=== PATIENT | male | born 1960 | race Caucasian/White ===

== ENCOUNTER → 2017-01-11 | Day surgery (SDC) | payer OTHER ==
[~2017-01-11] MED LIST: ASPIRIN81 M1 PO; COREG12.5 M1 PO; LEVOTHYROXINE0.05 MG PO; LISINOPRIL10 M1 PO; PRILOSEC20 M1 PO; XANAX1 MG PO
[2017-01-11 12:55] LABS: PROTHROMBIN TIME 10.7 SECONDS (9.0-12.4)
== END | disposition home or self-care (01) ==
LOC: LAB 00:31
PROVIDERS: Chiropractor Orthopedic
DX: M25.512 Pain in left shoulder (principal); I10 Essential (primary) hypertension; Z98.890 Other specified postprocedural states

== ENCOUNTER → 2017-04-04 | Outpatient (CLI) | payer OTHER | END | disposition home or self-care (01) | LOC: RESCLI 02:16 | DX: I10 Essential (primary) hypertension (principal); E55.9 Vitamin D deficiency, unspecified; E03.9 Hypothyroidism, unspecified; F41.9 Anxiety disorder, unspecified; K21.9 Gastro-esophageal reflux disease without esophagitis ==

== ENCOUNTER → 2017-08-08 | Outpatient (CLI) | payer OTHER | END | disposition home or self-care (01) | LOC: RESCLI 01:46 | DX: F10.20 Alcohol dependence, uncomplicated (principal); K21.9 Gastro-esophageal reflux disease without esophagitis; F41.1 Generalized anxiety disorder; E03.9 Hypothyroidism, unspecified; E55.9 Vitamin D deficiency, unspecified; I10 Essential (primary) hypertension; F32.9 Major depressive disorder, single episode, unspecified ==

== ENCOUNTER 2017-12-20 17:47 | Inpatient (IN) | payer OTHER ==
[~2017-12-20] VITALS: Ht 167.6 cm; Wt 80.5 kg
--- NOTE | ~2017-12-20 | CON ---
[place], [place] REPORT OF CONSULTATION NAME: [facility]SE MANUEL [facility]IRD [id number] UNIT #: [id number] ROOM: 415 DOCTOR: LEANDRO HERNÁNDEZ ED.D (TOMAS) BIRTHDATE: [birth year] DOS: 12/26/2017 HISTORY OF PRESENT ILLNESS: The patient is a 57-year-old male referred by the hospitalist for an evaluation secondary to thoughts he may be suicidal. At the present time, this patient is in the intensive care unit at [facility]. He is and has three children along with several grandchildren. He last worked with the [employer], working on the [employer] lines. He follows up at the [facility] in [place], [place]. His medical history is pertinent for alcohol dependence, generalized anxiety disorder, hypertension, thyroid disease and GERD. His medications include Prozac, Restoril, Vistaril, Prinivil, omeprazole, vitamin D3, and Synthroid. He states he drinks 24-30 beers each day. He also smokes 1-2 packs of cigarettes each day. He does not use any recreational drugs, whatsoever. This patient was awake, alert and oriented in all three spheres. He denies any suicidal ideation or plan. His insight, judgment and concentration are fair. He states that once he is discharged from the hospital. He is going to rehabilitation for his alcoholism. He states he is very willing to enter rehabilitation and wants to remain sober. DIAGNOSES: 1. Alcohol dependence. 2. Generalized anxiety disorder. RECOMMENDATIONS: The patient is not suicidal and may be discharged to alcohol rehabilitation once he is medically stable. Thank you very much for this consult. LEANDRO HERNÁNDEZ ED.D CM:CONSTR:REPORT OF CONSULTATION 1513 12/26/17 2213 interface
[2017-12-20 17:55] VITALS: BP 150/90
[2017-12-20 18:24] LABS: BASO # 0.1 10*3/uL (0.0-0.1); BASO % 1.7 % (0.0-1.0); EOS % 0.3 % (1.0-4.0); HEMOGLOBIN 13.6 g/dl (14.0-18.0); LYMPH % 26.6 % (27.0-41.0); MEAN CELL VOLUME 100.5 fl (80.0-94.0); MEAN CORPUSCULAR HGB 35.1 pg (27.0-31.0); MEAN CORPUSCULAR HGB CONC 34.9 g/dl (33.0-37.0); MONO # 0.7 10*3/uL (0.1-1.0); MONO % 19.9 % (3.0-9.0); NEUT # 1.8 10*3/uL (2.3-7.9); NEUT % 51.5 % (47.0-73.0); PLATELET COUNT AUTOMATED 127 10*3/uL (130-400); RED BLOOD COUNT 3.88 10*6/uL (4.50-5.90); RED CELL DISTRI WIDTH 12.9 % (0-14.5); WHITE BLOOD COUNT 3.6 10*3/uL (4.8-10.8)
[2017-12-20 18:34] LABS: ACT PARTIAL THROMBO TIME 25.2 SECONDS (20.8-31.5); INTERNATIONAL NORM RATIO 1.1 (2.0-3.5)
[2017-12-20 18:41] LABS: ALBUMIN 3.1 gm/dl (3.1-4.5); ALKALINE PHOSPHATASE 100 U/L (45-117); BUN 3 mg/dl (7-24); CHLORIDE 100 mmol/L (98-107); POTASSIUM 3.3 mmol/L (3.5-5.1); SGOT/AST 153 IU/L (3-35); SGPT/ALT 57 U/L (12-78); SODIUM 133 mmol/L (136-145); TOTAL PROTEIN 7.9 gm/dL (6.4-8.2)
[2017-12-20 18:47] VITALS: BP 136/77
[2017-12-20 20:00] VITALS: BP 118/85
[2017-12-20 20:19] LABS: BILIRUBIN NEGATIVE (NEGATIVE); BLOOD NEGATIVE (NEGATIVE); CLARITY CLEAR (CLEAR); COLOR YELLOW (YELLOW); GLUCOSE NEGATIVE (NEGATIVE); KETONE NEGATIVE (NEGATIVE); LEUKO ESTERASE NEGATIVE (NEGATIVE); NITRITE NEGATIVE (NEGATIVE); PH 5.5 (5.0-9.0); SPECIFIC GRAVITY <= 1.005 (1.005-1.030); UROBILINOGEN 0.2 E.U./dl (0.2-1.0)
[2017-12-20 20:43] LABS: BACTERIA TRACE; RBC 0-2 rbc/hpf (0-2); URINE AMPHETAMINES < 1000 (1000ng/ml); URINE BARBITURATES < 200 (200ng/ml); URINE BENZODIAZEPINES < 200 (200ng/ml); URINE CANNABINOIDS (THC) < 50 (50ng/ml); URINE COCAINE < 300 (300ng/ml); URINE METHADONE < 300 (300ng/ml); URINE OPIATES < 300 (300ng/ml); WBC 0-2 wbc/hpf (0-5)
[2017-12-20 20:48] LABS: URINE PHENCYCLIDINE < 25 (25ng/ml)
[2017-12-21] VITALS: BP 134/79
[2017-12-21 04:00] VITALS: BP 124/54
[2017-12-21 06:16] LABS: BASO # 0.1 10*3/uL (0.0-0.1); BASO % 1.9 % (0.0-1.0); EOS % 0.9 % (1.0-4.0); HEMOGLOBIN 12.9 g/dl (14.0-18.0); LYMPH % 31.8 % (27.0-41.0); MEAN CELL VOLUME 102.2 fl (80.0-94.0); MEAN CORPUSCULAR HGB 35.6 pg (27.0-31.0); MEAN CORPUSCULAR HGB CONC 34.9 g/dl (33.0-37.0); MEAN PLATELET VOLUME 9.5 fl (9.6-12.3); MONO # 0.6 10*3/uL (0.1-1.0); MONO % 17.1 % (3.0-9.0); NEUT # 1.5 10*3/uL (2.3-7.9); PLATELET COUNT AUTOMATED 124 10*3/uL (130-400); RED BLOOD COUNT 3.62 10*6/uL (4.50-5.90); WHITE BLOOD COUNT 3.2 10*3/uL (4.8-10.8)
[2017-12-21 06:28] LABS: ALBUMIN 2.9 gm/dl (3.1-4.5); ALKALINE PHOSPHATASE 89 U/L (45-117); BUN 3 mg/dl (7-24); CHLORIDE 103 mmol/L (98-107); CREATININE 0.46 mg/dL (0.70-1.30); POTASSIUM 3.5 mmol/L (3.5-5.1); SGOT/AST 131 IU/L (3-35); SGPT/ALT 53 U/L (12-78); SODIUM 136 mmol/L (136-145); TOTAL PROTEIN 7.3 gm/dL (6.4-8.2)
[2017-12-21 08:00] VITALS: BP 141/70
[2017-12-21] MEDS ORDERED: VISTARIL50 MG PO (11:11)
[2017-12-21] MEDS ORDERED: RESTORIL15 MG PO (11:11)
[2017-12-21] MEDS ORDERED: PROZAC40 M1 PO (11:11)
[2017-12-21] MEDS ORDERED: VITAMIN D-32000 UNIT PO (11:12)
[2017-12-21] MEDS ORDERED: PRINIVIL10 MG PO (11:12)
[2017-12-21] MEDS ORDERED: ASPIRIN CHEWABL81 MG PO (11:13)
[2017-12-21] MEDS ORDERED: PRILOSEC20 M1 PO (11:13)
[2017-12-21] MEDS ORDERED: Synthroid,Levo50 MCG PO (11:13)
[2017-12-21 16:00] VITALS: BP 158/98
[2017-12-21 20:00] VITALS: BP 151/105
[2017-12-22] VITALS: BP 152/96
[2017-12-22 08:00] VITALS: BP 163/93
[2017-12-22 12:00] VITALS: BP 130/77
[2017-12-22 14:57] VITALS: BP 120/86
[2017-12-22 16:00] VITALS: BP 134/88
[2017-12-22 20:40] VITALS: BP 160/98
[2017-12-23] VITALS: BP 158/113
[2017-12-23 02:45] VITALS: BP 196/89
[2017-12-23 04:00] VITALS: BP 161/106
[2017-12-23 07:07] LABS: ALBUMIN 3.2 gm/dl (3.1-4.5); ALKALINE PHOSPHATASE 91 U/L (45-117); BUN 4 mg/dl (7-24); CHLORIDE 105 mmol/L (98-107); CREATININE 0.53 mg/dL (0.70-1.30); PHOSPHOROUS 2.4 mg/dL (2.5-4.9); POTASSIUM 3.2 mmol/L (3.5-5.1); SGOT/AST 85 IU/L (3-35); SGPT/ALT 46 U/L (12-78); SODIUM 139 mmol/L (136-145); TOTAL PROTEIN 7.9 gm/dL (6.4-8.2)
[2017-12-23 08:00] VITALS: BP 146/97
[2017-12-23 08:41] LABS: BASO % 0.5 % (0.0-1.0); EOS % 0.4 % (1.0-4.0); HEMATOCRIT 38.2 % (42.0-52.0); HEMOGLOBIN 13.3 g/dl (14.0-18.0); LYMPH # 0.8 10*3/uL (1.3-4.4); LYMPH % 15.1 % (27.0-41.0); MEAN CELL VOLUME 101.1 fl (80.0-94.0); MEAN CORPUSCULAR HGB 35.2 pg (27.0-31.0); MEAN CORPUSCULAR HGB CONC 34.8 g/dl (33.0-37.0); MEAN PLATELET VOLUME 10.2 fl (9.6-12.3); MONO # 0.7 10*3/uL (0.1-1.0); MONO % 12.2 % (3.0-9.0); NEUT # 3.9 10*3/uL (2.3-7.9); NEUT % 71.4 % (47.0-73.0); PLATELET COUNT AUTOMATED 130 10*3/uL (130-400); RED BLOOD COUNT 3.78 10*6/uL (4.50-5.90); RED CELL DISTRI WIDTH 12.6 % (0-14.5); WHITE BLOOD COUNT 5.5 10*3/uL (4.8-10.8)
[2017-12-23 16:00] VITALS: BP 128/93
[2017-12-23 20:00] VITALS: BP 129/79
[2017-12-24] VITALS: BP 139/87
[2017-12-24 04:00] VITALS: BP 129/77
[2017-12-24 08:00] VITALS: BP 128/93
[2017-12-24 09:16] LABS: ALBUMIN 2.8 gm/dl (3.1-4.5); ALKALINE PHOSPHATASE 69 U/L (45-117); BUN 7 mg/dl (7-24); CHLORIDE 101 mmol/L (98-107); CREATININE 0.49 mg/dL (0.70-1.30); SGOT/AST 88 IU/L (3-35); SGPT/ALT 47 U/L (12-78); SODIUM 137 mmol/L (136-145)
[2017-12-24 12:00] VITALS: BP 118/82
[2017-12-24 16:00] VITALS: BP 127/84
[2017-12-24 20:00] VITALS: BP 120/74
[2017-12-25] VITALS: BP 118/87
[2017-12-25 08:00] VITALS: BP 142/82
[2017-12-25 12:00] VITALS: BP 144/76
[2017-12-25 16:00] VITALS: BP 123/73
[2017-12-25 20:00] VITALS: BP 116/81
[2017-12-26] VITALS: BP 138/75
[2017-12-26 04:00] VITALS: BP 130/74
[2017-12-26 06:03] LABS: BUN 6 mg/dl (7-24); CHLORIDE 102 mmol/L (98-107); POTASSIUM 3.1 mmol/L (3.5-5.1); SODIUM 136 mmol/L (136-145)
[2017-12-26 08:00] VITALS: BP 146/86
[2017-12-26 12:00] VITALS: BP 148/80
[2017-12-26 16:00] VITALS: BP 134/84
[2017-12-26 20:00] VITALS: BP 144/86
[2017-12-27] VITALS: BP 143/76
[2017-12-27 06:40] LABS: BUN 6 mg/dl (7-24); CHLORIDE 101 mmol/L (98-107); CREATININE 0.45 mg/dL (0.70-1.30); POTASSIUM 3.2 mmol/L (3.5-5.1); SODIUM 136 mmol/L (136-145)
[2017-12-27 06:46] LABS: BASO # 0.1 10*3/uL (0.0-0.1); EOS # 0.2 10*3/uL (0.0-0.4); EOS % 3.7 % (1.0-4.0); HEMATOCRIT 39.2 % (42.0-52.0); HEMOGLOBIN 13.4 g/dl (14.0-18.0); LYMPH # 1.3 10*3/uL (1.3-4.4); LYMPH % 27.2 % (27.0-41.0); MEAN CELL VOLUME 102.6 fl (80.0-94.0); MEAN CORPUSCULAR HGB 35.1 pg (27.0-31.0); MEAN CORPUSCULAR HGB CONC 34.2 g/dl (33.0-37.0); MEAN PLATELET VOLUME 10.3 fl (9.6-12.3); MONO # 0.9 10*3/uL (0.1-1.0); MONO % 18.5 % (3.0-9.0); NEUT # 2.4 10*3/uL (2.3-7.9); NEUT % 48.8 % (47.0-73.0); PLATELET COUNT AUTOMATED 173 10*3/uL (130-400); RED BLOOD COUNT 3.82 10*6/uL (4.50-5.90); WHITE BLOOD COUNT 4.9 10*3/uL (4.8-10.8)
[2017-12-27 08:00] VITALS: BP 138/80
[2017-12-27 12:00] VITALS: BP 118/78
[2017-12-27 16:00] VITALS: BP 116/78
[2017-12-27 20:00] VITALS: BP 139/81
[2017-12-28] VITALS: BP 137/95
[2017-12-28 07:47] LABS: BUN 5 mg/dl (7-24); CHLORIDE 100 mmol/L (98-107); POTASSIUM 3.6 mmol/L (3.5-5.1); SODIUM 134 mmol/L (136-145)
[2017-12-28 08:00] VITALS: BP 130/68
[2017-12-28 08:21] LABS: CREATININE 0.52 mg/dL (0.70-1.30)
== END 2017-12-28 12:00 | disposition home or self-care (01) | DRG 189 ==
LOC: ED 17:47 → EDHOLD 18:12 → 4E 18:12 → ICCU 18:12 → 4E 18:22 → ICCU 12-22 20:20 → 4E 12-26 15:41
PROVIDERS: Emergency Medicine; Internal Medicine; Student in an Organized Health Care Education/Training Program
DX: J96.01 Acute respiratory failure with hypoxia (principal); D61.818 Other pancytopenia; R65.10 Systemic inflammatory response syndrome (SIRS) of non-infectious origin without acute organ dysfunction; D69.6 Thrombocytopenia, unspecified; E44.0 Moderate protein-calorie malnutrition; F10.29 Alcohol dependence with unspecified alcohol-induced disorder; E87.1 Hypo-osmolality and hyponatremia; F10.239 Alcohol dependence with withdrawal, unspecified; E03.9 Hypothyroidism, unspecified; D72.819 Decreased white blood cell count, unspecified; E87.6 Hypokalemia; E66.3 Overweight; F17.200 Nicotine dependence, unspecified, uncomplicated; K21.9 Gastro-esophageal reflux disease without esophagitis; F41.1 Generalized anxiety disorder; R73.9 Hyperglycemia, unspecified; I10 Essential (primary) hypertension; R00.0 Tachycardia, unspecified; D53.9 Nutritional anemia, unspecified; Z71.6 Tobacco abuse counseling; Z79.899 Other long term (current) drug therapy; Z79.82 Long term (current) use of aspirin; Z68.28 Body mass index [BMI] 28.0-28.9, adult

== ENCOUNTER 2018-01-10 18:13 | Inpatient (IN) | payer OTHER ==
[~2018-01-10] VITALS: Ht 167.6 cm; Wt 76.3 kg
[2018-01-10] VITALS (8 sets, daily range): BP systolic 129–157; BP diastolic 80–107
--- NOTE | ~2018-01-10 | CON ---
[place], [place] REPORT OF CONSULTATION NAME: JOSE MANUEL BIRD [facility] #: [id number] UNIT #: [id number] ROOM: [facility] DOCTOR: EULALIA GUERRERO MD,EDDI BIRTHDATE: [birth year] DOS: 01/13/2018 PULMONARY CRITICAL CARE, EVALUATION, AND MANAGEMENT CONSULTATION REQUESTED BY: Hospitalist services. REASON FOR CONSULTATION: For recurrent acute respiratory failure management. HISTORY OF PRESENT ILLNESS: A 57-year-old white male patient who has been noted with history of alcohol withdrawal has been admitted under the hospitalist services on the date of 01/10/2018. The patient has been brought to the hospital, was hospitalized for the assessment and management of the severe alcohol withdrawal under [facility]. The patient has been treated with protocol for detoxification of the alcohol. The patient was noted with excessive agitation. The patient with severe visual hallucination and agitation almost falling out to the back. He has been receiving Ativan and other medical management. The patient has been intubated and started on mechanical ventilation to secure the airway, change in mental status for potential aspiration, and further medical management of the patient could be given. Further excessive doses of sedation as needed to overcome the severe delirium tremens and the alcohol withdrawal. Currently, the patient has been intubated successfully by the Anesthesia Department without any difficulty. The patient has been sedated and noted comfortable, not noted with agitation. The patient did fell at home with pain reported in the left chest noted with acute rib fracture on this admission without any evidence of pneumothorax. REVIEW OF SYSTEMS: The review of systems could not be performed as the patient is intubated and noted on mechanical ventilation. PAST MEDICAL HISTORY: The history, which has been noted by other physician is also reviewed and is as follows: 1. History of chronic alcohol use, drinking 20-30 beers a day for several years. 2. Generalized anxiety disorder. 2. Gastroesophageal reflux. 3. Essential hypertension. 4. Hypothyroidism. 5. History of tobacco use. 6. Vitamin D deficiency. 7. History of hypothyroidism. PAST SURGICAL HISTORY: Noted with surgical manipulation of the ankle on the right side. SOCIAL HISTORY: The patient was living at home, noted use of marijuana, cocaine as well as chronic alcohol administration, and smoking 2 packs of cigarettes per day. FAMILY HISTORY: Father history was unknown. Mother is a 61-year-old diseased [place], [place] REPORT OF CONSULTATION NAME: JOSE MANUEL BIRD UNIT #: [id number] ROOM: [facility] DOCTOR: EULALIA GUERRERO MD,EDDI BIRTHDATE: [birth year] from complication related to heart disease. HOME MEDICATIONS: Reported use of aspirin, vitamin D, Prozac, hydroxyzine, levothyroxine, lisinopril, omeprazole, and Restoril. DRUG ALLERGY HISTORY: Noted with no known drug allergies. PHYSICAL EXAMINATION: GENERAL: A 57-year-old white male who has been currently intubated and sedated with Diprivan and Versed combination effectively. Height noted as 5 feet 6 inches, weight 168 pounds, and BMI 27. VITAL SIGNS: The vital signs of the patient shows a normal temperature, respiratory rate 16-22, heart rate of 125, sinus tachycardia, early post-intubation and sedation 76; and blood pressure 98/73-130/94. Intake is 2800 mL, output 4300, negative fluid balance of 1500 in the last 24 hours. The pulse oxygen saturation of the patient on 100% oxygen supplementation post-intubation is 100% at the bedside. The patient notices control volume, control mechanical ventilation, tidal volume 550, and rate of 12 with a PEEP of 5.0. HEENT: Atraumatic. Eyes nonicterus. NECK: Supple. Orogastric tube is in place. CARDIOVASCULAR: S1, S2 is audible. LUNGS: The patient was noted with moderate decreased breath sounds without any wheezing or crackles at this time. ABDOMEN: Soft, flat, and nontender. Bowel sounds present. EXTREMITIES: Without any acute edema. SKIN: No lesions or rashes. MUSCULOSKELETAL: No deformities. CENTRAL NERVOUS SYSTEM: Could not be performed. LABORATORY DATA: CBC on admission essentially noted as normal CBC except MCV elevated at 98.3. PT and PTT on 01/10/2018 normal on admission. CMP on 01/10/2018 normal on admission except sodium 133, mildly decreased. CMP of the patient on 01/11/2018, normal BUN and creatinine. Sodium 135 and potassium 3.2. CBC: Hemoglobin 13.3, otherwise CBC normal. Ethyl alcohol level was noted as 134 initially, later 131 on 01/11/2018 on admission. Urine drug screen that was done on 01/11/2018 noted positive for opiates as well as benzodiazepines. The BMP of the patient that was done on 01/12/2018 noted as normal BUN and creatinine. CBC yesterday, WBC count 4.1, hemoglobin 13.4, hematocrit 39.0, and platelet count was normal. Arterial blood gas post-intubation, mechanical ventilation, and 50% oxygen, pH of 7.39, pCO2 of 36.9, pO2 of 10 as the oxygen decreased from 100% to 50%. RADIOLOGY DATA: The review of the radiology data, the chest x-ray that was done with a repeat on 01/10/2018 in the Emergency Room, was noted with left posterolateral fracture of the 2nd and 3rd rib as well as a left 11th rib is a possibility. CT scan of chest was done on 01/10/2018 was noted with a limited study ____ because of the patient movement. Lungs were noted clear of any infiltrates. There were no signs of pneumothorax. No acute displaced rib fracture for the patient was reported in the CT scan of the chest. The chest [place], [place] REPORT OF CONSULTATION NAME: JOSE MANUEL BIRD UNIT #: [id number] ROOM: [facility] DOCTOR: EULALIA GUERRERO MD,[facility] BIRTHDATE: [birth year] x-ray on 01/13/2018 shows endotracheal tube in appropriate place. Lungs clear. Mild cardiomegaly. NG tube in the stomach. IMPRESSION: 1. The patient who has been currently admitted to the hospital noted with severe acute delirium tremens, alcohol withdrawal, combination of longstanding alcohol use. 2. Change in mental status related to alcohol use with delirium tremens and current use of sedation combination. 3. History of chronic tobacco use without evidence of acute exacerbation of chronic obstructive pulmonary disease at present, which was suspected as seen. 4. Mild electrolyte imbalance related to the alcohol use and other etiology. PLAN OF MANAGEMENT: The patient will be continued on mechanical ventilation. Oxygen supplementation will be decreased to 30% of oxygen. Further change in mechanical ventilation will be made based on progression of the illness. Daily arterial blood gas and repeat arterial blood gases for assessment of any hypoxia or other abnormalities. The patient was ordered the feeding. Ventilator bundle management was also initiated. Sedation in the form of the Diprivan and a Versed will be given, more Versed should be used than Diprivan for the next couple of days prior to assess the resolution of the alcohol withdrawal, delirium tremens, and start weaning off, liberation of mechanical ventilation, assessment. Other supportive therapy and plan of management as previously ordered will be continued. Usual care, other supportive therapy, plan of management, and treatments. Total time in pulmonary critical care, evaluation, and management of the patient is 33 minutes. EDDI ESTEBAN MD CM:CONSTR:REPORT OF CONSULTATION 2130 01/14/18 0431 interface
--- NOTE | ~2018-01-10 | PR ---
[place], [place] PROGRESS NOTE NAME: [facility]IRD [facility] [id number] UNIT #: [id number] ROOM: [facility] DOCTOR: EULALIA GUERRERO MD,EDDI BIRTHDATE: [birth year] DOS: 01/16/2018 PULMONARY CRITICAL EVALUATION AND MANAGEMENT SUBJECTIVE: The patient remains in Intensive Care Unit. Continue intravenous drip of Ativan and intravenous Diprivan combination. The secretion production has been noted intermittently, thick and now been completely resolved. He had not been reported any finding of hemoptysis. The patient has not been noted any acute hemodynamic instability requiring use of any vasopressor therapy. Feeding was continued, well tolerated from the orogastric tube use. The patient's mental status is noted as deep sedation at this time. OBJECTIVE: VITAL SIGNS: Which has been recorded showed the temperature noted to be normal. Respiratory 15-14, heart rate 74-85, blood pressure 100/68-103/72. Pulse oxygen saturation on 30% oxygen 98% saturation recorded. HEENT: Examination shows head was atraumatic. Eyes: Nonicterus. NECK: Supple. CARDIOVASCULAR: The patient orally intubated. Orogastric tube is in place. S1, S2 audible. LUNGS: Noted [id number], decreased breath sounds, no wheeze or crackles today. ABDOMEN: Soft, nontender, bowel sounds present. EXTREMITIES: Without acute edema with no skin or lesions or rashes. MUSCULOSKELETAL SYMPTOMS: Without any deformities. CENTRAL NERVOUS SYSTEMS: Sedation at this time, further examination could not be performed. LABORATORY DATA: CBC today, WBC count 11.7, hemoglobin 12.2, hematocrit 36.1, platelet count 132,000. CMP of the patient, BUN and creatinine was normal, sodium 135, potassium 3.1. CT scan of maxillary facial sinusitis was also done shows moderate amount of complex fluid in the nasopharynx and oropharynx. Irregular thickening of the soft palate was also reported, right maxillary sinusitis infectious or inflammatory process would be considered. The x-ray of the facial bones was done shows evidence of right maxillary sinusitis. Endotracheal aspirate was noted normal toshia, preliminary final culture results were pending from yesterday. Blood culture from the of this month, so far showing no bacterial growths. PT/PTT yesterday and platelet function testing was normal. Chest x-ray, of course advancement of the endotracheal tube noted proper positioning of the endotracheal tube about 4 cm above the salma level. IMPRESSION: 1. The patient with severe acute bronchitis. The patient with right maxillary sinusitis. 2. Acute respiratory failure with delirium tremens and alcohol withdrawal combination. 3. Hyperkalemia. 4. Protein calorie malnutrition as well. [place], [place] PROGRESS NOTE NAME: JOSE MANUEL BIRD UNIT #: [id number] ROOM: [facility] DOCTOR: EDDI ALEXANDER MD BIRTHDATE: [birth year] 5. History of chronic alcohol dependence. 6. Rule out electrolyte imbalance, multifactorial. PLAN OF MANAGEMENT: 1. Proceed with the fiberoptic bronchoscopy as planned today. Continue current antibiotic medical management of acute sinusitis as well as for the acute tracheobronchitis, rule out any pneumonia. 2. Past history of nicotine abuse as well. 3. Mild anemia. 4. Hyperkalemia. PLAN OF TREATMENT: The potassium supplementation will be continued. Continue nutrition support. Continue bronchodilators. No change in antibiotic at this time will be necessary. Follow up the culture results. Any modification in treatment if necessary will be done after the bronchoscopy. Decrease and discontinue the Ativan at the present time. Use a dose of Diprivan for the patient to assess his mental status. Total time of pulmonary critical care evaluation and management excluding any billable procedure was 32 minutes. EDDI ESTEBAN MD CM:PNTRANS [id number] EDDI GUERRERO MD 01/16/18 1602 interface
--- NOTE | ~2018-01-10 | PR ---
[place], [place] PROGRESS NOTE NAME: JOSE MANUEL BIRD [facility] #: [id number] UNIT #: [id number] ROOM: [facility] DOCTOR: EULALIA GUERRERO MD,EDDI BIRTHDATE: [birth year] DOS: 01/15/2018 PULMONARY CRITICAL CARE EVALUATION AND MANAGEMENT SUBJECTIVE: The patient remains on mechanical ventilator at the present time, has been noted with a temperature elevation as well as a significant increase of purulent secretion noted from the endobronchial tree, suctioning done for the patient frequently by the nursing staff. He has not been noted with hemodynamic stability. Sedation was continued with the use of intravenous Diprivan as well as with the use of the Ativan. The patient has not been reported with any other acute changes. The feeding of the patient, which has been controlled is well tolerated. He was noted with poor dental and oral hygiene and also noted with some teeth issues. The patient has not been noted with any withdrawal because of current adequate sedation from the alcohol or further delirium tremens. OBJECTIVE: VITAL SIGNS: Rectal temperature 101.6 degree Fahrenheit, oral temperature 100.4 degree Fahrenheit, respiratory rate of 17-22, heart rate 104-87, blood pressure of 107/73-92/68. Intake for the patient is ____ 850 mL. Pulse oxygen saturation on 30% oxygen is 97% saturation. HEENT: Examination shows head was atraumatic. Eyes nonicterus. NECK: Supple. CARDIOVASCULAR: S1, S2 is audible. LUNGS: The patient noted with moderate decreased breath sounds in the lungs bilaterally. ABDOMEN: Soft and obese. EXTREMITIES: The patient was noted without any acute edema. MUSCULOSKELETAL: Without any acute deformities. SKIN: Without any lesions or rashes. CENTRAL NERVOUS SYSTEM: Currently, the patient is sedated. LABORATORY DATA: Endotracheal aspirate culture of the patient from 01/13/2018 noted with normal toshia. Arterial blood gas this morning, pH of 7.43, pCO2 34, pO2 97. Urine culture, no bacterial growth from 01/13/2018. CMP of this morning for the patient, glucose 122, BUN normal, creatinine was normal, sodium 132, chloride of 97, albumin 2.9. CBC of the patient from 01/15/2018, WBC count 11.7. hemoglobin 13.3, hematocrit 39.3, platelet count was noted as 147,000. IMAGING STUDIES: Chest x-ray of the patient that was done this morning, one-view, high-riding endotracheal tube was noted. The NG tube was noted in the stomach. There was no gross pulmonary infiltration. IMPRESSION: 1. Purulent tracheobronchitis of the patient noted at the present time. 2. High-riding endotracheal tube. 3. The patient with severe delirium tremens with alcohol withdrawal and history of chronic alcohol dependence. 4. History of tobacco use. 5. Rule out dental abscess of the patient and other abnormalities. 6. Mild anemia was also noted with elevation of MCV secondary to alcohol use. [place], [place] PROGRESS NOTE NAME: JOSE MANUEL BIRD UNIT #: [id number] ROOM: [facility] DOCTOR: EULALIA GUERRERO MD,DEDI BIRTHDATE: [birth year] PLAN OF MANAGEMENT: Bronchoscopy planned to be done in the morning. Ordered the x-ray of the facial bones of the patient to exclude any dental problem and also obtain a CT scan of the facial area as well. Continuation of bronchodilators. No changes in the overall medical management except yost-culturing for this patient with blood. The patient has been started on Unasyn 3 g q. 6 hours. Doxycycline 100 mg IV b.i.d. was ordered as well. Further changes and adjustment and antibiotic de-escalation will be done based on culture results. Continue nutrition support. Continue ventilator bundle management, DVT prophylaxis, other medical management and care. Usual care, other supportive therapy, plan of management and treatments. Total time in pulmonary critical care evaluation and management today was 35 minutes. EDDI ESTEBAN MD CM:PNTRANS [id number] EDDI GUERRERO MD 01/16/18 0051 interface
--- NOTE | ~2018-01-10 | PR ---
[place], [place] PROGRESS NOTE NAME: JOSE MANUEL BIRD [facility] #: [id number] UNIT #: [id number] ROOM: 419 DOCTOR: EULALIA GUERRERO MD,EDDI BIRTHDATE: [birth year] DOS: 01/18/2018 SUBJECTIVE: She has been currently liberated from mechanical ventilator. The patient started CPAP trial yesterday that was continued for a couple of hours later, the patient did liberate himself from the mechanical ventilation. He has been noted to be awake and alert. The patient was given Haldol p.r.n., but the lower dose of 2.5 mg as needed for agitation. Low-grade fever was still noted. He had not been noted symptoms of chest pain. He has been noted with coughing that has been noted moderate. There were symptoms, nausea, vomiting. He was started ____ initially and then advance the diet without difficulty swallowing. He denies symptoms of nausea, vomiting, diarrhea, abdominal pain, or edema of the lower extremities. Remaining systems were reviewed. They were noted all negative. OBJECTIVE: VITAL SIGNS: Highest temperature noted 100.2 degrees Fahrenheit to normal temperature, respiratory 13-19, heart rate of 96-95, blood pressure 115/79 ____. The pulse oxygen saturation noted on room air 95% saturation. HEAD, EYES, EARS, NOSE, AND THROAT: Examination shows moderate chronic obesity. The patient currently extubated. Orogastric tube has been removed as well. NECK: Short and obese. CARDIOVASCULAR SYSTEM: S1, S2 was audible. LUNGS: Moderate decreased breath sounds, scattered wheezing, and no crackles. ABDOMEN: Soft and obese. EXTREMITIES: Without any acute edema. MUSCULOSKELETAL SYMPTOMS: Without any acute deformities. CENTRAL NERVOUS SYSTEM: Cranial nerves 2-12 intact. LABORATORY DATA: BMP today, normal BUN and creatinine today, potassium 3.0, which was low. CBC: WBC count normal, platelet count normal, hemoglobin 12.2. Culture of the bronchial washing were noted as no bacterial growth. Endotracheal aspirate 7th of this month has identified heavy growth of Staph aureus. Arterial blood gas on the CPAP motor mechanical ventilation. The patient's pH of 7.41, pCO2 of 40, pO2 of 116. Arterial blood gas normal later after liberation from mechanical ventilation, self extubation, pH of 7.42, pCO2 of 39.3, pO2 of 83.7. IMPRESSION: 1. Acute severe tracheobronchitis Staph aureus with a history of alcohol dependence, with resolution of delirium tremens and alcohol withdrawal. 2. Chronic obesity with a suspicion of obstructive sleep apnea disorder and history of chronic nicotine abuse with mild wheezing. PLAN OF THERAPY: The patient could be transferred to medical floor. Continuation of antibiotics at the present time. Bronchodilators with oxygen supplementation. Continuation of the DVT prophylaxis. Physical therapy might be needed. Antibiotic discontinuation of the IV Unasyn today. Continue doxycycline as the only antibiotic for treatment of Staphylococcus aureus infection. Continuation nicotine placement patches. Discontinuation of the IV Protonix. [place], [place] PROGRESS NOTE NAME: JOSE MANUEL BIRD [place] UNIT #: [id number] ROOM: [facility] DOCTOR: EDDI ALEXANDER MD BIRTHDATE: [birth year] EDDI ESTEBAN MD CM:PNTRANS [id number] EDDI GUERRERO MD 01/18/18 1427 interface
--- NOTE | ~2018-01-10 | PR ---
[place], [place] PROGRESS NOTE NAME: JOSE MANUEL BIRD [facility] #: [id number] UNIT #: [id number] ROOM: [facility] DOCTOR: EULALIA GUERRERO MD,EDDI BIRTHDATE: [birth year] DOS: 01/17/2018 SUBJECTIVE: The patient was seen and examined on 01/17/2018. Remains on mechanical ventilator. The Ativan drip has been completely discontinued. The patient was only continued on intravenous Diprivan for sedation purposes. The Haldol was also given as needed for the medical management of any additional agitation. This morning, the patient's sedation was discontinued. He has been noted awake and not agitated. He has been given Haldol earlier as well. The endotracheal secretions has been noted with gradual reduction. The rectal temperature noted elevated, but oral temperature noted as normal. He has been continued on intravenous antibiotic. The bronchoscopy done as well, but there was significant mucopurulent material from the endobronchial tree. The patient was continued on IV Unasyn and doxycycline. Chest x-ray did not show any evidence of acute pneumonia. The patient noted with evidence of right maxillary sinusitis. OBJECTIVE: VITAL SIGNS: The patient showed the temperature 99.4 degree Fahrenheit to 101 degree Fahrenheit, respiratory rate 12-20, heart rate of 105, mild sinus tachycardia to 71 beats per minute, blood pressure 120/90-113/80. Pulse oxygen saturation noted on 30% oxygen supplementation with assist control mode was 97% saturation with the CPAP motor mechanical ventilation, CPAP of 5, pressure support of 10, which was started. The patient was noted improvement in the wakefulness with saturation of oxygen noted about 90%-94%. The patient was not noted to have any tachypnea, but noted with a tidal volume about 400-600 mL intermittently. HEENT: The patient remained intubated. Orogastric tube is in place. Endotracheal tube in place. NECK: Short and obese. CARDIOVASCULAR: S1, S2 is audible. LUNGS: Noted with moderate reduction of the breath sounds bilaterally with scattered wheezing, no crackles. ABDOMEN: Soft, obese, nontender. EXTREMITIES: Without any acute edema. MUSCULOSKELETAL: No deformities. SKIN: No lesions or rashes. CENTRAL VENOUS SYSTEM: Wakefulness. The patient's further examination is limited at this time. LABORATORY DATA: The blood culture of the patient on 01/15/2018, showed no bacterial growth. CBC today: WBC count 14.7, hemoglobin 12.8, hematocrit 37.3, platelet count was noted as 164,000, 79% neutrophils. The culture of the urine for the patient showed no bacterial growth. The arterial blood gas of the patient that was done this morning, assist control mode of mechanical ventilation, pH of 7.43, pCO2 of 38, pO2 102 with 30% oxygen supplementation. The INR for the patient was noted as 1.0, which is normal. BMP this morning, normal BUN and creatinine. Potassium mildly decreased at 3.4. IMPRESSION: 1. The patient with acute respiratory failure for the patient was noted with [place], [place] PROGRESS NOTE NAME: JOSE MANUEL BIRD UNIT #: [id number] ROOM: [facility] DOCTOR: EULALIA GUERRERO MD,EDDI BIRTHDATE: [birth year] acute severe purulent tracheobronchitis with gram-positive organisms and anaerobes. There was no radiologic evidence of pneumonia. 2. The patient with acute maxillary sinusitis. 3. Severe alcohol withdrawal and delirium tremens, which seemed to be resolving. 4. Mild hypokalemia, medication-induced. 5. Chronic obesity. 6. History of long-term tobacco use for the patient was also known. PLAN OF TREATMENT: Continue the CPAP on mechanical ventilation for a total of 2 hours. If tolerated with adequate mental status and others, the patient might be liberated from mechanical ventilator. Continue nutritional support with the current NG-tube feeding. Other supportive plan of therapy the patient will continue as well. Usual care with additional treatment changes to be made the patient in the treatment based on the progression of the illness. ADDENDUM: Total time for pulmonary critical care evaluation and management today was 36 minutes. EDDI ESTEBAN MD CM:PNTRANS [id number] [id number] EDDI GUERRERO MD 01/17/18 7198 interface
--- NOTE | ~2018-01-10 | PR ---
[place], [place] PROGRESS NOTE [id number] UN[facility] #: [id number] ROOM: 419 DOCTOR: EULALIA GUERRERO MD,EDDI BIRTHDATE: [birth year] DOS: 01/20/2018 SUBJECTIVE: He has been noted comfortable at this time. Confusion status has improved significantly. The patient did not require 1:1 observation. His daughter was present in the room with the patient. He denies symptoms of coughing, sputum expectoration. OBJECTIVE: VITAL SIGNS: Normal temperature, respiratory rate 20, heart rate 76, blood pressure 146/77. The pulse oxygen saturation on room air is 96% saturation. HEENT: Chronic moderate obesity. Head was atraumatic. Eyes nonicterus. NECK: Supple. CARDIOVASCULAR: S1, S2 audible. LUNGS: The patient was noted with [id number] decreased breath sounds without wheezing today. ABDOMEN: Soft, nontender. Bowel sounds present. EXTREMITIES: Without any acute edema. IMPRESSION: The patient with progressive improvement and resolution of the acute tracheobronchitis was noted, resolution of delirium tremens and alcohol withdrawal. Improvement in mental status as well. PLAN OF MANAGEMENT: No changes in the plan of management at this time. Discharge planning could be started for this patient whenever desired. EDDI ESTEBAN MD CM:PNTRANS [id number] [id number] EDDI GUERRERO MD 01/21/18 0040 interface
--- NOTE | ~2018-01-10 | PR ---
[place], [place] PROGRESS NOTE NAME: JOSE MANUEL BIRD UNIT #: [id number] ROOM: 419 DOCTOR: EDDI ALEXANDER MD BIRTHDATE: [birth year] DOS: 01/19/2018 SUBJECTIVE: He has been placed on 1:1 observation because of confusional status; however, he does not show any signs of distress or agitation, and cooperative with examination. Noted awake and alert this morning. The coughing has been subsiding, not noted as severe previously. The temperature curve was also noted normal. OBJECTIVE: VITAL SIGNS: Normal temperature, respiratory rate 18, heart rate 82, blood pressure 152/74. Pulse oxygen saturation on room air is 95% saturation. HEENT: Examination shows no new change. NECK: Supple. CARDIOVASCULAR: S1, S2 audible. LUNGS: Noted with moderate decreased breath sounds, absence of wheezing. There were no crackles. ABDOMEN: Soft, nontender. EXTREMITIES: Without acute edema. LABORATORY DATA: CBC today, normal WBC count and platelet count, hemoglobin 11.9. BMP this morning, normal BUN and creatinine. Potassium was noted as decreased, 2.6. IMPRESSION: 1. The patient with progressive improvement and resolution of acute respiratory failure, resolved delirium tremens, confusion secondary to chronic alcohol withdrawal. 2. Staphylococcus aureus tracheobronchitis. 3. Chronic obesity. PLAN OF MANAGEMENT: Continue bronchodilators and oxygen supplementation. Continuation of current antibiotics. All other supportive plan of management to be continued. Usual care. [place], [place] PROGRESS NOTE NAME: JOSE MANUEL BIRD UNIT #: [id number] ROOM: 419 DOCTOR: EDDI ALEXANDER MD BIRTHDATE: [birth year] EDDI ESTEBAN MD CM:PNTRANS 1131 15 EDDI GUERRERO MD 01/19/181814 interface
--- NOTE | ~2018-01-10 | PROC NOTE ---
[place], [place] PROCEDURE NOTE NAME: [facility]IRD [id number] #: [id number] ROOM: [facility] DOCTOR: EULALIA GUERRERO MD,EDDI BIRTHDATE: [birth year] DOS: 01/16/2018 PREOPERATIVE DIAGNOSIS: Excessive secretion production, recent intubation, and mechanical ventilation on the patient. POSTOPERATIVE DIAGNOSES: Removal of mucus impactions. Impaction was noted in the left endobronchial tree. The right endobronchial tree was noted clear. Some inflammatory changes also noted. No endobronchial obstruction. PROCEDURE DESCRIPTION: The patient was placed in negative pressure room in the Intensive Care Unit. The bronchoscopy done at the bedside. Video Fiberoptic bronchoscope advanced to the endotracheal tube lower part of the trachea. Vocal cord not seen since the patient is already intubated. The tracheal lumen noted as small amount of secretion, which was suctioned out. The right upper, right middle, right lower lobe bronchi are noted patent without any significant secretions. Left main stem bronchus noted with moderate amount of thick mucus secretion, which was causing impaction in the subsegment endobronchial tree left upper lingular lower lobe. All the secretions suctioned out clear. All the mucus impaction, mucus plugs were clear. Procedure well tolerated by the patient without any difficulty. Postoperative finding will be discussed with the patient's family members. Bronchial washing sent for all the necessary cultures. EDDI ESTEBAN MD CM:PROCNOTE:PROCEDURE NOTE [id number] EDDI GUERRERO MD
--- NOTE | ~2018-01-10 | PR ---
[place], [place] PROGRESS NOTE NAME: [facility]EL [facility]IRD [id number] UN[facility] #: [id number] ROOM: 419 DOCTOR: EULALIA GUERRERO MD,EDDI BIRTHDATE: [birth year] DOS: 01/21/2018 SUBJECTIVE: He was noted fully awake, alert, oriented at this time. No coughing or wheezing reported by the patient. He has been ambulating. Denies symptoms of chest pain and was hoping for home discharge today. OBJECTIVE: VITAL SIGNS: Normal temperature, respiratory rate 20, heart rate 75, blood pressure 148/78. Pulse oxygen saturation on room air 95% saturation. HEAD, EYES, EARS, NOSE, AND THROAT: Examination shows head was atraumatic. Eyes nonicterus. NECK: Supple. CARDIOVASCULAR SYSTEM: S1, S2 audible. LUNGS: Noted without any wheezing or crackles at the present time. ABDOMEN: Soft, obese, bowel sounds present. EXTREMITIES: No acute edema. IMPRESSION: Progressive improvement and resolution of the acute respiratory failure at the present time and acute bronchitis and other symptoms. Acute resolution of the alcohol withdrawal as well and delirium tremens. Mild hypokalemia noted on the laboratory which is supplemented. PLAN OF TREATMENT: Discharge the patient home whenever is noted medically stable from the pulmonary standpoint. No other immediate change in treatment will be necessary. Counseling about tobacco cessation was done with the patient and use of regular respiratory medications. Outpatient assessment after discharge. EDDI ESTEBAN MD CM:PNTRANS [id number] EDDI GUERRERO MD 01/21/18 1808 interface
--- NOTE | ~2018-01-10 | EKG ---
[place], [place] ELECTROCARDIOGRAM REPORT NAME: JOSE MANUEL BIRD UNIT #: [id number] ROOM: [facility] DOCTOR: EULALIA GUERRERO MD,EDDI BIRTHDATE: [birth year] DOS: 01/15/2018 Electrocardiogram done on 01/15/2018 at 11:55 a.m. Sinus tachycardia noted, heart rate 108 beats per minute. Nonspecific ST-T changes were noted. EDDI ESTEBAN MD CM:EKGRPT:ELECTROCARDIOGRAM REPORT [id number] [id number] EDDI GUERRERO MD
[~2018-01-10 18:13] MED LIST changes: +ASPIRIN CHEWABL81 MG PO; +PRINIVIL10 MG PO; +PROZAC40 M1 PO; +RESTORIL15 MG PO; +Synthroid,Levo50 MCG PO; +VISTARIL50 MG PO; +VITAMIN D-32000 UNIT PO
[2018-01-10 18:26] LABS: BASO # 0.1 10*3/uL (0.0-0.1); BASO % 1.6 % (0.0-1.0); EOS % 0.5 % (1.0-4.0); HEMATOCRIT 41.3 % (42.0-52.0); HEMOGLOBIN 14.7 g/dl (14.0-18.0); LYMPH # 1.7 10*3/uL (1.3-4.4); LYMPH % 28.7 % (27.0-41.0); MEAN CELL VOLUME 98.3 fl (80.0-94.0); MEAN CORPUSCULAR HGB CONC 35.6 g/dl (33.0-37.0); MEAN PLATELET VOLUME 8.7 fl (9.6-12.3); MONO # 0.6 10*3/uL (0.1-1.0); NEUT # 3.3 10*3/uL (2.3-7.9); PLATELET COUNT AUTOMATED 301 10*3/uL (130-400); RED CELL DISTRI WIDTH 11.7 % (0-14.5); WHITE BLOOD COUNT 5.7 10*3/uL (4.8-10.8)
[2018-01-10 18:34] LABS: ACT PARTIAL THROMBO TIME 26.3 SECONDS (20.8-31.5); INTERNATIONAL NORM RATIO 1.1 (2.0-3.5)
[2018-01-10 18:43] LABS: ALBUMIN 3.4 gm/dl (3.1-4.5); ALKALINE PHOSPHATASE 94 U/L (45-117); BUN 3 mg/dl (7-24); CHLORIDE 100 mmol/L (98-107); CREATININE 0.57 mg/dL (0.70-1.30); POTASSIUM 3.5 mmol/L (3.5-5.1); SGOT/AST 113 IU/L (3-35); SGPT/ALT 76 U/L (12-78); SODIUM 133 mmol/L (136-145); TOTAL PROTEIN 8.5 gm/dL (6.4-8.2)
[2018-01-10 18:51] LABS: TROPONIN I < 0.015 ng/ml (<0.045)
[2018-01-11] VITALS: BP 145/100
[2018-01-11 04:00] VITALS: BP 123/75
[2018-01-11 05:57] LABS: ALBUMIN 2.9 gm/dl (3.1-4.5); ALKALINE PHOSPHATASE 77 U/L (45-117); BUN 3 mg/dl (7-24); CHLORIDE 102 mmol/L (98-107); CHOLESTEROL 117 mg/dL (<200); CREATININE 0.48 mg/dL (0.70-1.30); HDL CHOLESTEROL 50 mg/dl (40-60); LDL CHOLESTEROL 37 mg/dL (9-159); PHOSPHOROUS 3.6 mg/dL (2.5-4.9); POTASSIUM 3.2 mmol/L (3.5-5.1); SGOT/AST 99 IU/L (3-35); SGPT/ALT 64 U/L (12-78); SODIUM 135 mmol/L (136-145); TOTAL PROTEIN 7.1 gm/dL (6.4-8.2); TRIGLYCERIDES 148 mg/dl (<150); VLDL CHOLESTEROL 30 mg/dL (6-40)
[2018-01-11 06:04] LABS: THYROID STIM HORMONE (HS) 0.888 uIU/ml (0.358-4.75)
[2018-01-11 06:14] LABS: BASO # 0.1 10*3/uL (0.0-0.1); BASO % 1.6 % (0.0-1.0); EOS % 0.6 % (1.0-4.0); HEMATOCRIT 37.9 % (42.0-52.0); HEMOGLOBIN 13.3 g/dl (14.0-18.0); LYMPH # 1.9 10*3/uL (1.3-4.4); LYMPH % 37.5 % (27.0-41.0); MEAN CELL VOLUME 100.3 fl (80.0-94.0); MEAN CORPUSCULAR HGB 35.2 pg (27.0-31.0); MEAN CORPUSCULAR HGB CONC 35.1 g/dl (33.0-37.0); MEAN PLATELET VOLUME 9.5 fl (9.6-12.3); MONO # 0.4 10*3/uL (0.1-1.0); NEUT # 2.7 10*3/uL (2.3-7.9); NEUT % 51.9 % (47.0-73.0); PLATELET COUNT AUTOMATED 245 10*3/uL (130-400); RED BLOOD COUNT 3.78 10*6/uL (4.50-5.90); RED CELL DISTRI WIDTH 11.7 % (0-14.5); WHITE BLOOD COUNT 5.1 10*3/uL (4.8-10.8)
[2018-01-11 08:00] VITALS: BP 141/90
[2018-01-11 08:14] LABS: VITAMIN D, 25-HYDROXY 23.7 ng/mL (30-100)
[2018-01-11 12:00] VITALS: BP 155/48
[2018-01-11 16:00] VITALS: BP 150/97
[2018-01-11 17:30] LABS: BILIRUBIN NEGATIVE (NEGATIVE); BLOOD NEGATIVE (NEGATIVE); CLARITY CLEAR (CLEAR); COLOR YELLOW (YELLOW); GLUCOSE NEGATIVE (NEGATIVE); KETONE TRACE (NEGATIVE); LEUKO ESTERASE NEGATIVE (NEGATIVE); NITRITE NEGATIVE (NEGATIVE)
[2018-01-11 17:37] LABS: MUCOUS TRACE
[2018-01-11 17:39] LABS: URINE AMPHETAMINES < 1000 (1000ng/ml); URINE BARBITURATES < 200 (200ng/ml); URINE BENZODIAZEPINES > 200 (200ng/ml); URINE CANNABINOIDS (THC) < 50 (50ng/ml); URINE COCAINE < 300 (300ng/ml); URINE METHADONE < 300 (300ng/ml); URINE OPIATES > 300 (300ng/ml)
[2018-01-11 17:40] LABS: URINE PHENCYCLIDINE < 25 (25ng/ml)
[2018-01-11 20:00] VITALS: BP 165/105
[2018-01-12] VITALS: BP 154/87
[2018-01-12 04:00] VITALS: BP 139/84
[2018-01-12 06:16] LABS: BASO # 0.1 10*3/uL (0.0-0.1); BASO % 1.2 % (0.0-1.0); EOS # 0.1 10*3/uL (0.0-0.4); EOS % 1.9 % (1.0-4.0); HEMOGLOBIN 13.4 g/dl (14.0-18.0); LYMPH # 1.1 10*3/uL (1.3-4.4); LYMPH % 26.2 % (27.0-41.0); MEAN CELL VOLUME 101.6 fl (80.0-94.0); MEAN CORPUSCULAR HGB 34.9 pg (27.0-31.0); MEAN CORPUSCULAR HGB CONC 34.4 g/dl (33.0-37.0); MEAN PLATELET VOLUME 9.5 fl (9.6-12.3); MONO # 0.6 10*3/uL (0.1-1.0); MONO % 14.3 % (3.0-9.0); NEUT # 2.3 10*3/uL (2.3-7.9); NEUT % 55.9 % (47.0-73.0); PLATELET COUNT AUTOMATED 178 10*3/uL (130-400); RED BLOOD COUNT 3.84 10*6/uL (4.50-5.90); RED CELL DISTRI WIDTH 11.6 % (0-14.5); WHITE BLOOD COUNT 4.1 10*3/uL (4.8-10.8)
[2018-01-12 06:38] LABS: BUN 4 mg/dl (7-24); CHLORIDE 102 mmol/L (98-107); CREATININE 0.53 mg/dL (0.70-1.30); POTASSIUM 3.3 mmol/L (3.5-5.1); SODIUM 135 mmol/L (136-145)
[2018-01-12 08:00] VITALS: BP 167/103
[2018-01-12] MEDS ORDERED: NICODERM CQ1 EAC2 T (09:48)
[2018-01-12 12:36] VITALS: BP 146/93
[2018-01-12 16:00] VITALS: BP 148/88
[2018-01-12 20:00] VITALS: BP 137/101
[2018-01-13] VITALS (11 sets, daily range): BP systolic 98–141; BP diastolic 46–98
[2018-01-13 06:02] LABS: BUN 4 mg/dl (7-24); CHLORIDE 97 mmol/L (98-107); CREATININE 0.57 mg/dL (0.70-1.30); SODIUM 132 mmol/L (136-145)
[2018-01-13 14:24] LABS: ABG BASE EXCESS -1.9 mmol/L (-2.0-2.0); ABG HCO3 22.3 mmol/l (22-26); ABG O2 SATURATION 99.6 % (95-97); ARTERIAL BLOOD GAS PCO2 36.9 mmHg (35-45); ARTERIAL BLOOD GAS PH 7.394 (7.35-7.45)
[2018-01-14] VITALS (12 sets, daily range): BP systolic 90–130; BP diastolic 60–90
[2018-01-14 06:26] LABS: BASO % 0.4 % (0.0-1.0); EOS # 0.3 10*3/uL (0.0-0.4); EOS % 3.2 % (1.0-4.0); HEMATOCRIT 39.5 % (42.0-52.0); HEMOGLOBIN 13.1 g/dl (14.0-18.0); LYMPH # 1.1 10*3/uL (1.3-4.4); LYMPH % 13.3 % (27.0-41.0); MEAN CELL VOLUME 103.4 fl (80.0-94.0); MEAN CORPUSCULAR HGB 34.3 pg (27.0-31.0); MEAN CORPUSCULAR HGB CONC 33.2 g/dl (33.0-37.0); MEAN PLATELET VOLUME 10.4 fl (9.6-12.3); MONO # 0.7 10*3/uL (0.1-1.0); MONO % 7.9 % (3.0-9.0); NEUT # 6.1 10*3/uL (2.3-7.9); NEUT % 74.8 % (47.0-73.0); PLATELET COUNT AUTOMATED 155 10*3/uL (130-400); RED BLOOD COUNT 3.82 10*6/uL (4.50-5.90); RED CELL DISTRI WIDTH 11.7 % (0-14.5); WHITE BLOOD COUNT 8.2 10*3/uL (4.8-10.8)
[2018-01-14 06:37] LABS: ALKALINE PHOSPHATASE 78 U/L (45-117); BUN 6 mg/dl (7-24); CHLORIDE 101 mmol/L (98-107); CREATININE 0.53 mg/dL (0.70-1.30); POTASSIUM 3.2 mmol/L (3.5-5.1); SGOT/AST 86 IU/L (3-35); SGPT/ALT 66 U/L (12-78); SODIUM 135 mmol/L (136-145); TOTAL PROTEIN 7.4 gm/dL (6.4-8.2)
[2018-01-14 06:38] LABS: PREALBUMIN 39 mg/dl (20-40)
[2018-01-14 07:52] LABS: ABG BASE EXCESS 0.5 mmol/L (-2.0-2.0); ABG HCO3 23.7 mmol/l (22-26); ABG O2 SATURATION 98.4 % (95-97); ARTERIAL BLOOD GAS PCO2 35.5 mmHg (35-45); ARTERIAL BLOOD GAS PH 7.44 (7.35-7.45)
[2018-01-15] VITALS (12 sets, daily range): BP systolic 92–115; BP diastolic 61–76
[2018-01-15 05:03] LABS: BASO % 0.3 % (0.0-1.0); EOS # 0.3 10*3/uL (0.0-0.4); EOS % 2.2 % (1.0-4.0); HEMATOCRIT 39.3 % (42.0-52.0); HEMOGLOBIN 13.3 g/dl (14.0-18.0); LYMPH # 1.2 10*3/uL (1.3-4.4); LYMPH % 10.6 % (27.0-41.0); MEAN CELL VOLUME 104.5 fl (80.0-94.0); MEAN CORPUSCULAR HGB 35.4 pg (27.0-31.0); MEAN CORPUSCULAR HGB CONC 33.8 g/dl (33.0-37.0); MEAN PLATELET VOLUME 10.1 fl (9.6-12.3); MONO % 8.7 % (3.0-9.0); NEUT # 9.1 10*3/uL (2.3-7.9); NEUT % 77.9 % (47.0-73.0); PLATELET COUNT AUTOMATED 147 10*3/uL (130-400); RED BLOOD COUNT 3.76 10*6/uL (4.50-5.90); RED CELL DISTRI WIDTH 11.8 % (0-14.5); WHITE BLOOD COUNT 11.7 10*3/uL (4.8-10.8)
[2018-01-15 05:18] LABS: ALBUMIN 2.9 gm/dl (3.1-4.5); ALKALINE PHOSPHATASE 79 U/L (45-117); BUN 10 mg/dl (7-24); CHLORIDE 97 mmol/L (98-107); CREATININE 0.62 mg/dL (0.70-1.30); POTASSIUM 3.7 mmol/L (3.5-5.1); SGOT/AST 51 IU/L (3-35); SGPT/ALT 55 U/L (12-78); SODIUM 132 mmol/L (136-145); TOTAL PROTEIN 7.6 gm/dL (6.4-8.2)
[2018-01-15 07:25] LABS: ABG BASE EXCESS 0.1 mmol/L (-2.0-2.0); ABG O2 SATURATION 97.4 % (95-97); ARTERIAL BLOOD GAS PCO2 34.9 mmHg (35-45); ARTERIAL BLOOD GAS PH 7.439 (7.35-7.45); ARTERIAL BLOOD GAS PO2 97.6 mmHg (80-90)
[2018-01-15 10:38] LABS: ACT PARTIAL THROMBO TIME 22.5 SECONDS (20.8-31.5)
[2018-01-16] VITALS (12 sets, daily range): BP systolic 91–107; BP diastolic 63–72
[2018-01-16 06:07] LABS: BASO % 0.3 % (0.0-1.0); EOS # 0.2 10*3/uL (0.0-0.4); EOS % 1.9 % (1.0-4.0); HEMATOCRIT 36.1 % (42.0-52.0); HEMOGLOBIN 12.2 g/dl (14.0-18.0); LYMPH # 1.5 10*3/uL (1.3-4.4); LYMPH % 13.1 % (27.0-41.0); MEAN CELL VOLUME 102.8 fl (80.0-94.0); MEAN CORPUSCULAR HGB 34.8 pg (27.0-31.0); MEAN CORPUSCULAR HGB CONC 33.8 g/dl (33.0-37.0); MEAN PLATELET VOLUME 10.7 fl (9.6-12.3); MONO # 1.4 10*3/uL (0.1-1.0); MONO % 11.9 % (3.0-9.0); NEUT # 8.4 10*3/uL (2.3-7.9); NEUT % 72.1 % (47.0-73.0); PLATELET COUNT AUTOMATED 132 10*3/uL (130-400); RED BLOOD COUNT 3.51 10*6/uL (4.50-5.90); RED CELL DISTRI WIDTH 11.8 % (0-14.5); WHITE BLOOD COUNT 11.7 10*3/uL (4.8-10.8)
[2018-01-16 06:10] LABS: ALBUMIN 2.5 gm/dl (3.1-4.5); ALKALINE PHOSPHATASE 70 U/L (45-117); BUN 10 mg/dl (7-24); CHLORIDE 100 mmol/L (98-107); CREATININE 0.41 mg/dL (0.70-1.30); POTASSIUM 3.1 mmol/L (3.5-5.1); SGOT/AST 34 IU/L (3-35); SGPT/ALT 40 U/L (12-78); SODIUM 135 mmol/L (136-145)
[2018-01-16 07:00] LABS: ABG BASE EXCESS 2.9 mmol/L (-2.0-2.0); ABG O2 SATURATION 98.5 % (95-97); ARTERIAL BLOOD GAS PCO2 41.7 mmHg (35-45); ARTERIAL BLOOD GAS PH 7.428 (7.35-7.45)
[2018-01-17] VITALS (9 sets, daily range): BP systolic 113–152; BP diastolic 69–93
[2018-01-17 05:17] LABS: BUN 15 mg/dl (7-24); CHLORIDE 100 mmol/L (98-107); CREATININE 0.56 mg/dL (0.70-1.30); POTASSIUM 3.4 mmol/L (3.5-5.1); SODIUM 136 mmol/L (136-145)
[2018-01-17 06:57] LABS: HEMATOCRIT 37.3 % (42.0-52.0); HEMOGLOBIN 12.6 g/dl (14.0-18.0); MEAN CELL VOLUME 105.4 fl (80.0-94.0); MEAN CORPUSCULAR HGB 35.6 pg (27.0-31.0); MEAN CORPUSCULAR HGB CONC 33.8 g/dl (33.0-37.0); PLATELET COUNT AUTOMATED 164 10*3/uL (130-400); RED BLOOD COUNT 3.54 10*6/uL (4.50-5.90); RED CELL DISTRI WIDTH 11.7 % (0-14.5); WHITE BLOOD COUNT 14.7 10*3/uL (4.8-10.8)
[2018-01-17 07:10] LABS: ABG BASE EXCESS 2.1 mmol/L (-2.0-2.0); ABG HCO3 25.5 mmol/l (22-26); ABG O2 SATURATION 97.9 % (95-97); ARTERIAL BLOOD GAS PCO2 38.7 mmHg (35-45); ARTERIAL BLOOD GAS PH 7.438 (7.35-7.45)
[2018-01-17 08:03] LABS: PHOSPHOROUS 2.2 mg/dL (2.5-4.9)
[2018-01-17 08:20] LABS: PLATELET SUFFICIENCY NORMAL (NORMAL); TOTAL CELLS COUNTED 100 #CELLS
[2018-01-17 09:52] LABS: BILIRUBIN NEGATIVE (NEGATIVE); BLOOD 3+ (NEGATIVE); CLARITY CLOUDY (CLEAR); COLOR YELLOW (YELLOW); GLUCOSE NEGATIVE (NEGATIVE); KETONE TRACE (NEGATIVE); LEUKO ESTERASE TRACE (NEGATIVE); NITRITE NEGATIVE (NEGATIVE); PH 6.5 (5.0-9.0); SPECIFIC GRAVITY 1.025 (1.005-1.030)
[2018-01-17 10:51] LABS: BACTERIA 1+; CALCIUM OXALATE CRYSTALS 2+; RBC TNTC rbc/hpf (0-2)
[2018-01-17 11:51] LABS: ABG BASE EXCESS 1.4 mmol/L (-2.0-2.0); ABG HCO3 25.2 mmol/l (22-26); ABG O2 SATURATION 98.6 % (95-97); ARTERIAL BLOOD GAS PCO2 40.1 mmHg (35-45); ARTERIAL BLOOD GAS PH 7.419 (7.35-7.45)
[2018-01-17 12:45] LABS: ABG BASE EXCESS 1.6 mmol/L (-2.0-2.0); ABG HCO3 25.1 mmol/l (22-26); ABG O2 SATURATION 96.1 % (95-97); ARTERIAL BLOOD GAS PCO2 39.3 mmHg (35-45); ARTERIAL BLOOD GAS PH 7.427 (7.35-7.45); ARTERIAL BLOOD GAS PO2 83.3 mmHg (80-90)
[2018-01-17 16:09] LABS: ACID FAST SPEC PROCESSING Concentration (.)
[2018-01-18] VITALS (7 sets, daily range): BP systolic 115–167; BP diastolic 68–90
[2018-01-18 05:11] LABS: HEMATOCRIT 35.4 % (42.0-52.0); HEMOGLOBIN 12.2 g/dl (14.0-18.0); MEAN CORPUSCULAR HGB 34.7 pg (27.0-31.0); MEAN CORPUSCULAR HGB CONC 34.5 g/dl (33.0-37.0); MEAN PLATELET VOLUME 9.4 fl (9.6-12.3); PLATELET COUNT AUTOMATED 165 10*3/uL (130-400); RED BLOOD COUNT 3.52 10*6/uL (4.50-5.90); RED CELL DISTRI WIDTH 11.3 % (0-14.5); WHITE BLOOD COUNT 9.1 10*3/uL (4.8-10.8)
[2018-01-18 05:13] LABS: MEAN CELL VOLUME 100.6 fl (80.0-94.0)
[2018-01-18 05:34] LABS: CHLORIDE 100 mmol/L (98-107); CREATININE 0.37 mg/dL (0.70-1.30); SODIUM 137 mmol/L (136-145)
[2018-01-18 05:48] LABS: BUN 5 mg/dl (7-24)
[2018-01-18 05:57] LABS: TOTAL CELLS COUNTED 100 #CELLS
[2018-01-18 05:58] LABS: PLATELET SUFFICIENCY NORMAL (NORMAL)
[2018-01-19 06:44] LABS: HEMATOCRIT 34.8 % (42.0-52.0); HEMOGLOBIN 11.9 g/dl (14.0-18.0); MEAN CELL VOLUME 100.9 fl (80.0-94.0); MEAN CORPUSCULAR HGB 34.5 pg (27.0-31.0); MEAN CORPUSCULAR HGB CONC 34.2 g/dl (33.0-37.0); MEAN PLATELET VOLUME 9.6 fl (9.6-12.3); PLATELET COUNT AUTOMATED 211 10*3/uL (130-400); RED BLOOD COUNT 3.45 10*6/uL (4.50-5.90); RED CELL DISTRI WIDTH 11.4 % (0-14.5); WHITE BLOOD COUNT 6.6 10*3/uL (4.8-10.8)
[2018-01-19 06:54] LABS: BUN 4 mg/dl (7-24); CHLORIDE 103 mmol/L (98-107); CREATININE 0.34 mg/dL (0.70-1.30); POTASSIUM 2.6 mmol/L (3.5-5.1); SODIUM 138 mmol/L (136-145)
[2018-01-19 07:29] LABS: BASOPHILS 1 % (0-1); PLATELET SUFFICIENCY NORMAL (NORMAL); TOTAL CELLS COUNTED 100 #CELLS; TOXIC GRANULATION SLIGHT
[2018-01-19 08:00] VITALS: BP 152/74
[2018-01-19 12:00] VITALS: BP 150/90
[2018-01-19 16:00] VITALS: BP 139/86
[2018-01-19 20:00] VITALS: BP 126/58
[2018-01-20] VITALS: BP 151/80
[2018-01-20 06:50] LABS: BASO # 0.1 10*3/uL (0.0-0.1); BASO % 0.9 % (0.0-1.0); EOS # 0.2 10*3/uL (0.0-0.4); HEMATOCRIT 36.2 % (42.0-52.0); HEMOGLOBIN 12.5 g/dl (14.0-18.0); LYMPH # 1.6 10*3/uL (1.3-4.4); LYMPH % 22.7 % (27.0-41.0); MEAN CELL VOLUME 99.7 fl (80.0-94.0); MEAN CORPUSCULAR HGB 34.4 pg (27.0-31.0); MEAN CORPUSCULAR HGB CONC 34.5 g/dl (33.0-37.0); MEAN PLATELET VOLUME 9.6 fl (9.6-12.3); MONO # 1.3 10*3/uL (0.1-1.0); MONO % 19.2 % (3.0-9.0); NEUT # 3.7 10*3/uL (2.3-7.9); NEUT % 53.3 % (47.0-73.0); PLATELET COUNT AUTOMATED 262 10*3/uL (130-400); RED BLOOD COUNT 3.63 10*6/uL (4.50-5.90); RED CELL DISTRI WIDTH 11.3 % (0-14.5)
[2018-01-20 07:09] LABS: BUN 4 mg/dl (7-24); CHLORIDE 101 mmol/L (98-107); CREATININE 0.37 mg/dL (0.70-1.30); POTASSIUM 3.2 mmol/L (3.5-5.1); SODIUM 135 mmol/L (136-145)
[2018-01-20 08:00] VITALS: BP 146/77
[2018-01-20 12:00] VITALS: BP 159/91
[2018-01-20 16:00] VITALS: BP 134/83
[2018-01-20 20:00] VITALS: BP 148/96
[2018-01-21] VITALS: BP 150/87
[2018-01-21 08:00] VITALS: BP 140/78
[2018-01-21 09:10] LABS: BUN 4 mg/dl (7-24); CHLORIDE 96 mmol/L (98-107); CREATININE 0.41 mg/dL (0.70-1.30); POTASSIUM 3.2 mmol/L (3.5-5.1); SODIUM 132 mmol/L (136-145)
[2018-01-21 12:00] VITALS: BP 147/80
[2018-01-21] MEDS ORDERED: VISTARIL50 MG PO (15:31)
[2018-01-21] MEDS ORDERED: DOXYCYCLINE100 M3 PO (15:31)
== END 2018-01-21 15:40 | disposition home or self-care (01) | DRG 871 ==
LOC: ED 18:13 → EDHOLD 22:43 → ICCU 22:43 → 4E 01-18 14:17
PROVIDERS: Emergency Medicine; Family Medicine; Internal Medicine; Internal Medicine Critical Care Medicine; Internal Medicine Hospice and Palliative Medicine
PROC: 0BC18ZZ Extirpation of Matter from Trachea, Via Natural or Artificial Opening Endoscopic (ICD-10-PCS; principal; 2018-01-20)
PROC: 0BC48ZZ Extirpation of Matter from Right Upper Lobe Bronchus, Via Natural or Artificial Opening Endoscopic (ICD-10-PCS; principal; 2018-01-20)
PROC: 0BC38ZZ Extirpation of Matter from Right Main Bronchus, Via Natural or Artificial Opening Endoscopic (ICD-10-PCS; principal; 2018-01-20)
PROC: 0BC58ZZ Extirpation of Matter from Right Middle Lobe Bronchus, Via Natural or Artificial Opening Endoscopic (ICD-10-PCS; principal; 2018-01-20)
PROC: 0BC98ZZ Extirpation of Matter from Lingula Bronchus, Via Natural or Artificial Opening Endoscopic (ICD-10-PCS; principal; 2018-01-20)
PROC: 0BC78ZZ Extirpation of Matter from Left Main Bronchus, Via Natural or Artificial Opening Endoscopic (ICD-10-PCS; principal; 2018-01-20)
PROC: 0BCB8ZZ Extirpation of Matter from Left Lower Lobe Bronchus, Via Natural or Artificial Opening Endoscopic (ICD-10-PCS; principal; 2018-01-20)
PROC: 0BC88ZZ Extirpation of Matter from Left Upper Lobe Bronchus, Via Natural or Artificial Opening Endoscopic (ICD-10-PCS; principal; 2018-01-20)
PROC: 0BC68ZZ Extirpation of Matter from Right Lower Lobe Bronchus, Via Natural or Artificial Opening Endoscopic (ICD-10-PCS; principal; 2018-01-20)
DX: A41.9 Sepsis, unspecified organism (principal); J96.00 Acute respiratory failure, unspecified whether with hypoxia or hypercapnia; F10.231 Alcohol dependence with withdrawal delirium; E46 Unspecified protein-calorie malnutrition; T17.490A Other foreign object in trachea causing asphyxiation, initial encounter; T17.590A Other foreign object in bronchus causing asphyxiation, initial encounter; E87.2 Acidosis; S22.42XA Multiple fractures of ribs, left side, initial encounter for closed fracture; E83.41 Hypermagnesemia; E87.1 Hypo-osmolality and hyponatremia; J21.9 Acute bronchiolitis, unspecified; K12.2 Cellulitis and abscess of mouth; F10.129 Alcohol abuse with intoxication, unspecified; R74.0 Nonspecific elevation of levels of transaminase and lactic acid dehydrogenase [LDH]; R73.9 Hyperglycemia, unspecified; Z71.6 Tobacco abuse counseling; E78.2 Mixed hyperlipidemia; E55.9 Vitamin D deficiency, unspecified; D53.9 Nutritional anemia, unspecified; I10 Essential (primary) hypertension; F41.9 Anxiety disorder, unspecified; E03.9 Hypothyroidism, unspecified; K21.9 Gastro-esophageal reflux disease without esophagitis; F32.9 Major depressive disorder, single episode, unspecified; W19.XXXA Unspecified fall, initial encounter; F17.200 Nicotine dependence, unspecified, uncomplicated; Z82.49 Family history of ischemic heart disease and other diseases of the circulatory system; Z79.82 Long term (current) use of aspirin; F41.1 Generalized anxiety disorder; E87.6 Hypokalemia; E66.9 Obesity, unspecified; Y90.9 Presence of alcohol in blood, level not specified; E87.5 Hyperkalemia; X58.XXXA Exposure to other specified factors, initial encounter; Y93.89 Activity, other specified; Y92.89 Other specified places as the place of occurrence of the external cause; Y99.8 Other external cause status; W18.09XA Striking against other object with subsequent fall, initial encounter; Z68.25 Body mass index [BMI] 25.0-25.9, adult

== ENCOUNTER 2018-02-22 17:46 | Inpatient (IN) | payer OTHER ==
[~2018-02-22] VITALS: Ht 167.6 cm; Wt 72.0 kg
--- NOTE | ~2018-02-22 | PR ---
[place], [place] PROGRESS NOTE NAME: JOSE MANUEL BIRD UNIT #: [id number] ROOM: 419 DOCTOR: LAM JACOME MD BIRTHDATE: [birth year] DOS: 02/28/2018 SUBJECTIVE: The patient was seen at the cardiology department prior to his stress test today 02/28/2018. He tells me that he feels well and has not had any problems overnight. He specifically denies any chest discomfort or dyspnea. He has not had any palpitations. OBJECTIVE: VITAL SIGNS: Pulse is 62 and regular, blood pressure is 143/83. He is afebrile. He weighs 72 kg and has a body mass index 25.6. NECK: Supple. He has no jugular distention. Carotids are full. LUNGS: Respirations are unlabored. Chest is clear. HEART: Has a regular rhythm. He has an S4 gallop. ABDOMEN: Soft. EXTREMITIES: Showed no edema. IMPRESSION: 1. EKG abnormalities that have occurred within the last 2-3 days. These suggest the presence of inferolateral ischemia. 2. Normal troponin levels indicating that he has not had any recent myocardial injury. 3. Alcohol withdrawal. 4. History of delirium tremens. 5. History of hypothyroidism. 6. History of hypertension. 7. History of hyperlipidemia. PLAN: The patient will undergo a pharmacologic stress test today to further assess myocardial perfusion, left ventricular function, etc. and help plan future management strategies. [facility] and I thank the hospitalist physicians for asking our advice regarding the patient's assessment. [place], [place] PROGRESS NOTE NAME: JOSE MANUEL BIRD UNIT #: [id number] ROOM: 419 DOCTOR: LAM JACOME MD BIRTHDATE: [birth year] LAM JACOME MD CM:PNTRANS 1339 1556 LAM JACOME MD 02/28/18 1555 interface
--- NOTE | ~2018-02-22 | CON ---
[place], [place] REPORT OF CONSULTATION NAME: [facility]EL [facility]IRD [facility] [id number] UNIT #: [id number] ROOM: 419 DOCTOR: LAM JACOME MD BIRTHDATE: [birth year] DOS: 02/27/2018 REASON FOR CONSULTATION: New EKG changes suggesting ischemia. HISTORY OF PRESENT ILLNESS: The patient is a 57-year-old man who has a long history of heavy alcohol abuse. He admits to consuming 24 cans of beer per day. He was recently hospitalized at the [facility] for alcohol withdrawal 01/10/2018. During that hospitalization, he had tracheobronchitis. He developed delirium tremens and ultimately had to be sedated and intubated. He was discharged to home, but returned now to allow alcohol withdrawal again prior to his entering a 30-day inpatient rehabilitation program in [place], [place]. On admission to the hospital on 02/22/2018, an electrocardiogram was done which showed lateral T-wave flattening with mid precordial T-wave inversion. This was a new finding, but not dramatic. Today, his electrocardiogram was repeated and now he has symmetric T-wave inversion in the inferior leads with deep symmetric T-wave inversions from V3 through V6. This is an acute change and cardiology was asked to assist in his evaluation. The patient denies any chest pain aside from rib pain from recent rib fractures. He denies orthopnea, PND, palpitations, or dyspnea. PAST MEDICAL HISTORY: Includes the followin. Alcohol abuse with withdrawal and delirium tremens requiring inpatient treatments. 2. Anxiety disorder. 3. Depression. 4. Gastroesophageal reflux disease. 5. Hypertension. 6. Hypothyroidism. 7. Hyperlipidemia. 8. MCFP and ongoing tobacco abuse 1 pack per day. 9. Alcohol abuse. The patient admits to 24 cans of beer daily for at least 10 years. 10. Drug abuse. The patient reportedly used marijuana and cocaine many years ago. FAMILY HISTORY: The patient's father is of unknown causes. His mother at 61 from a heart attack. MEDICATIONS PRIOR TO ADMISSION: Aspirin 81 mg per day; carvedilol 12.5 mg twice a day, but not recently filled at the pharmacy; vitamin D 2000 units daily; Prozac 20 mg per day; folic acid 200 mcg per day; hydroxyzine 50 mg q.6 hours p.r.n.; levothyroxine 50 mcg daily; lisinopril 10 mg daily; omeprazole 20 mg daily and temazepam 15 mg at bedtime. ALLERGIES: The patient has no known drug allergies. REVIEW OF SYSTEMS: The patient denies diplopia or loss of vision. He is fatigued and feels generally weak. He denies focal weakness. He denies lightheadedness or syncope. He denies orthopnea or PND. He does have chest [place], [place] REPORT OF CONSULTATION NAME: JOSE MANUEL BIRD UNIT #: [id number] ROOM: [facility] DOCTOR: LAM JACOME MD BIRTHDATE: [birth year] wall tenderness. He denies cough, hemoptysis or hematemesis. He denies change in bowel or bladder habits and denies blood in his stools or urine. He denies any skin rashes. He denies peripheral edema. He denies polyuria or polydipsia. He denies heat or cold intolerance. The remainder of the review of systems is negative except as noted above. SOCIAL HISTORY: The patient is unemployed. He does have a history of alcohol and drug use as noted above. He does smoke at least a pack of cigarettes a day. PHYSICAL EXAMINATION: GENERAL: The patient is a slender white male who is awake, alert and oriented. VITAL SIGNS: Pulse is 73 and regular, blood pressure 133/75. He is afebrile. He weighs 72 kg and has a body mass index 25.6. HEENT: Normocephalic and atraumatic. Extraocular muscles are intact. Sclerae are clear. Pupils are equal, round and react to light. The oral mucosa is moist. Tongue is midline. NECK: Supple. He has no jugular distention. Carotids are full and I heard no bruits. He had no neck or supraclavicular masses and no thyromegaly. LUNGS: Respirations are unlabored. His chest is clear to auscultation and percussion. He has no presacral edema or chest wall tenderness. CARDIOVASCULAR: His heart has a regular rhythm. He has a fourth heart sound, but no third heart sound or murmur. The PMI is not displaced and there is no precordial heave, lift or thrill. ABDOMEN: Soft and normally active without masses, organomegaly or bruits. EXTREMITIES: Showed no edema. Peripheral pulses are palpable in the feet. I reviewed the electrocardiograms and they do indeed show new symmetric deep T-wave inversions in the inferior and lateral leads suggesting acute ischemia. LABORATORY DATA: Sodium is 136, potassium 3.3, chloride 103, CO2 24, BUN 4, creatinine 0.37, GFR greater than 60. Calcium low at 8.0, albumin normal at 3.3. Ammonia level 38 and mildly elevated. IMPRESSION: 1. Status post inpatient alcohol withdrawal. 2. History of heavy alcohol abuse and delirium tremens. 3. Hypertension. 4. Hypothyroidism. 5. New EKG changes consistent with acute ischemia. The patient is asymptomatic, but does certainly have risk factors. PLAN: We will obtain an echocardiogram to look for LV function to see if this may be related to a cardiomyopathy. We will also proceed with a pharmacologic stress test to look for signs of significant ischemia. If his stress test is abnormal, he probably should undergo cardiac catheterization. Given his history of alcohol abuse, revascularization may be problematic, but will be discussed at that time. We thank the hospitalist physicians for asking our advice regarding his care. [place], [place] REPORT OF CONSULTATION NAME: JOSE MANUEL BIRD UNIT #: [id number] ROOM: 419 DOCTOR: LAM JACOME MD BIRTHDATE: [birth year] LAM JACOME MD CM:CONSTR:REPORT OF CONSULTATION 51 02/28/18 [facility]8 interface
[~2018-02-22 17:46] MED LIST changes: +DOXYCYCLINE100 M3 PO; +NICODERM CQ1 EAC2 T; +PROZAC20 MG PO; -PROZAC40 M1 PO
[2018-02-22 17:47] VITALS: BP 173/105
[2018-02-22 18:48] LABS: BASO % 0.7 % (0.0-1.0); EOS % 0.2 % (1.0-4.0); HEMATOCRIT 40.3 % (42.0-52.0); HEMOGLOBIN 14.2 g/dl (14.0-18.0); LYMPH # 0.5 10*3/uL (1.3-4.4); LYMPH % 10.7 % (27.0-41.0); MEAN CELL VOLUME 96.6 fl (80.0-94.0); MEAN CORPUSCULAR HGB 34.1 pg (27.0-31.0); MEAN CORPUSCULAR HGB CONC 35.2 g/dl (33.0-37.0); MONO # 0.4 10*3/uL (0.1-1.0); NEUT # 3.4 10*3/uL (2.3-7.9); NEUT % 77.9 % (47.0-73.0); PLATELET COUNT AUTOMATED 107 10*3/uL (130-400); RED BLOOD COUNT 4.17 10*6/uL (4.50-5.90); RED CELL DISTRI WIDTH 11.8 % (0-14.5); WHITE BLOOD COUNT 4.4 10*3/uL (4.8-10.8)
[2018-02-22 18:50] VITALS: BP 153/105
[2018-02-22 18:55] VITALS: BP 168/90
[2018-02-22 19:03] LABS: ACT PARTIAL THROMBO TIME 22.6 SECONDS (20.8-31.5); INTERNATIONAL NORM RATIO 1.2 (2.0-3.5)
[2018-02-22] MEDS ORDERED: COREG12.5 M1 PO (19:05)
[2018-02-22] MEDS ORDERED: MEN'S MULTIVI200 MCG PO (19:08)
[2018-02-22 19:18] LABS: ALBUMIN 3.9 gm/dl (3.1-4.5); ALKALINE PHOSPHATASE 96 U/L (45-117); BUN 8 mg/dl (7-24); CHLORIDE 96 mmol/L (98-107); POTASSIUM 3.2 mmol/L (3.5-5.1); SGOT/AST 115 IU/L (3-35); SGPT/ALT 62 U/L (12-78); SODIUM 129 mmol/L (136-145); TOTAL PROTEIN 8.7 gm/dL (6.4-8.2)
[2018-02-22 19:19] LABS: ETHYL ALCOHOL < 3.0 mg/dl (<3)
[2018-02-22 19:28] VITALS: BP 142/87
[2018-02-22 19:52] VITALS: BP 137/96
[2018-02-23 00:04] VITALS: BP 130/85
[2018-02-23 00:06] LABS: BILIRUBIN NEGATIVE (NEGATIVE); BLOOD TRACE-LYSED (NEGATIVE); CLARITY SL CLOUDY (CLEAR); COLOR YELLOW (YELLOW); GLUCOSE NEGATIVE (NEGATIVE); KETONE 1+ (NEGATIVE); LEUKO ESTERASE NEGATIVE (NEGATIVE); NITRITE NEGATIVE (NEGATIVE); UROBILINOGEN 0.2 E.U./dl (0.2-1.0)
[2018-02-23 00:17] LABS: URINE AMPHETAMINES < 1000 (1000ng/ml); URINE BARBITURATES < 200 (200ng/ml); URINE BENZODIAZEPINES > 200 (200ng/ml); URINE CANNABINOIDS (THC) < 50 (50ng/ml); URINE COCAINE < 300 (300ng/ml); URINE METHADONE < 300 (300ng/ml); URINE OPIATES < 300 (300ng/ml)
[2018-02-23 00:20] LABS: URINE PHENCYCLIDINE < 25 (25ng/ml)
[2018-02-23 00:33] LABS: HYALINE CAST 40-45
[2018-02-23 04:03] VITALS: BP 141/86
[2018-02-23 05:39] LABS: ALBUMIN 3.3 gm/dl (3.1-4.5); ALKALINE PHOSPHATASE 75 U/L (45-117); BUN 7 mg/dl (7-24); CHLORIDE 101 mmol/L (98-107); CREATININE 0.52 mg/dL (0.70-1.30); PHOSPHOROUS 2.5 mg/dL (2.5-4.9); POTASSIUM 2.9 mmol/L (3.5-5.1); SGOT/AST 72 IU/L (3-35); SGPT/ALT 46 U/L (12-78); SODIUM 133 mmol/L (136-145); TOTAL PROTEIN 7.1 gm/dL (6.4-8.2)
[2018-02-23 05:56] LABS: BASO % 0.5 % (0.0-1.0); EOS # 0.1 10*3/uL (0.0-0.4); HEMOGLOBIN 12.7 g/dl (14.0-18.0); LYMPH # 1.4 10*3/uL (1.3-4.4); LYMPH % 34.4 % (27.0-41.0); MEAN CELL VOLUME 98.7 fl (80.0-94.0); MEAN CORPUSCULAR HGB 33.9 pg (27.0-31.0); MEAN CORPUSCULAR HGB CONC 34.3 g/dl (33.0-37.0); MEAN PLATELET VOLUME 10.8 fl (9.6-12.3); MONO # 0.5 10*3/uL (0.1-1.0); MONO % 12.5 % (3.0-9.0); NEUT % 50.3 % (47.0-73.0); PLATELET COUNT AUTOMATED 97 10*3/uL (130-400); RED BLOOD COUNT 3.75 10*6/uL (4.50-5.90); RED CELL DISTRI WIDTH 11.9 % (0-14.5); WHITE BLOOD COUNT 3.9 10*3/uL (4.8-10.8)
[2018-02-23 08:00] VITALS: BP 132/74
[2018-02-23 12:00] VITALS: BP 110/60
[2018-02-23 15:57] VITALS: BP 119/75
[2018-02-23 20:00] VITALS: BP 155/88
[2018-02-24] VITALS: BP 114/76
[2018-02-24 04:00] VITALS: BP 131/88
[2018-02-24 05:45] LABS: ALBUMIN 3.7 gm/dl (3.1-4.5); ALKALINE PHOSPHATASE 78 U/L (45-117); BUN 5 mg/dl (7-24); CHLORIDE 104 mmol/L (98-107); CREATININE 0.59 mg/dL (0.70-1.30); PHOSPHOROUS 1.5 mg/dL (2.5-4.9); POTASSIUM 3.1 mmol/L (3.5-5.1); SGOT/AST 70 IU/L (3-35); SGPT/ALT 49 U/L (12-78); SODIUM 134 mmol/L (136-145); TOTAL PROTEIN 7.9 gm/dL (6.4-8.2)
[2018-02-24 06:12] LABS: BASO % 0.4 % (0.0-1.0); EOS # 0.1 10*3/uL (0.0-0.4); EOS % 1.2 % (1.0-4.0); HEMATOCRIT 38.9 % (42.0-52.0); HEMOGLOBIN 13.2 g/dl (14.0-18.0); LYMPH # 1.5 10*3/uL (1.3-4.4); LYMPH % 19.1 % (27.0-41.0); MEAN CELL VOLUME 99.2 fl (80.0-94.0); MEAN CORPUSCULAR HGB 33.7 pg (27.0-31.0); MEAN CORPUSCULAR HGB CONC 33.9 g/dl (33.0-37.0); MEAN PLATELET VOLUME 11.2 fl (9.6-12.3); MONO # 0.8 10*3/uL (0.1-1.0); MONO % 10.2 % (3.0-9.0); NEUT # 5.3 10*3/uL (2.3-7.9); NEUT % 68.6 % (47.0-73.0); PLATELET COUNT AUTOMATED 113 10*3/uL (130-400); RED BLOOD COUNT 3.92 10*6/uL (4.50-5.90); WHITE BLOOD COUNT 7.7 10*3/uL (4.8-10.8)
[2018-02-24 08:00] VITALS: BP 160/97
[2018-02-24 16:00] VITALS: BP 147/99
[2018-02-24 20:00] VITALS: BP 143/89
[2018-02-25] VITALS: BP 165/78
[2018-02-25 04:00] VITALS: BP 167/70
[2018-02-25 05:50] LABS: ALBUMIN 3.3 gm/dl (3.1-4.5); ALKALINE PHOSPHATASE 61 U/L (45-117); BUN 4 mg/dl (7-24); CHLORIDE 105 mmol/L (98-107); CREATININE 0.45 mg/dL (0.70-1.30); PHOSPHOROUS 2.8 mg/dL (2.5-4.9); POTASSIUM 3.5 mmol/L (3.5-5.1); SGOT/AST 53 IU/L (3-35); SGPT/ALT 42 U/L (12-78); SODIUM 137 mmol/L (136-145); TOTAL PROTEIN 7.1 gm/dL (6.4-8.2)
[2018-02-25 06:07] LABS: BASO % 0.5 % (0.0-1.0); EOS # 0.1 10*3/uL (0.0-0.4); HEMATOCRIT 36.4 % (42.0-52.0); HEMOGLOBIN 12.3 g/dl (14.0-18.0); LYMPH # 1.4 10*3/uL (1.3-4.4); LYMPH % 20.7 % (27.0-41.0); MEAN CELL VOLUME 99.5 fl (80.0-94.0); MEAN CORPUSCULAR HGB 33.6 pg (27.0-31.0); MEAN CORPUSCULAR HGB CONC 33.8 g/dl (33.0-37.0); MEAN PLATELET VOLUME 11.1 fl (9.6-12.3); MONO # 0.8 10*3/uL (0.1-1.0); MONO % 11.8 % (3.0-9.0); NEUT # 4.3 10*3/uL (2.3-7.9); NEUT % 64.5 % (47.0-73.0); PLATELET COUNT AUTOMATED 119 10*3/uL (130-400); RED BLOOD COUNT 3.66 10*6/uL (4.50-5.90); RED CELL DISTRI WIDTH 12.1 % (0-14.5); WHITE BLOOD COUNT 6.6 10*3/uL (4.8-10.8)
[2018-02-25 08:00] VITALS: BP 122/62
[2018-02-25 12:00] VITALS: BP 129/65
[2018-02-25 15:58] VITALS: BP 130/84
[2018-02-25 20:00] VITALS: BP 138/82
[2018-02-26] VITALS: BP 146/90
[2018-02-26 04:00] VITALS: BP 134/83
[2018-02-26 05:41] LABS: BUN 4 mg/dl (7-24); CHLORIDE 103 mmol/L (98-107); CREATININE 0.37 mg/dL (0.70-1.30); POTASSIUM 3.3 mmol/L (3.5-5.1); SODIUM 136 mmol/L (136-145)
[2018-02-26 06:21] LABS: BASO % 0.4 % (0.0-1.0); EOS # 0.2 10*3/uL (0.0-0.4); EOS % 3.3 % (1.0-4.0); HEMATOCRIT 35.2 % (42.0-52.0); LYMPH # 1.5 10*3/uL (1.3-4.4); LYMPH % 28.2 % (27.0-41.0); MEAN CELL VOLUME 100.9 fl (80.0-94.0); MEAN CORPUSCULAR HGB 34.4 pg (27.0-31.0); MEAN CORPUSCULAR HGB CONC 34.1 g/dl (33.0-37.0); MEAN PLATELET VOLUME 10.7 fl (9.6-12.3); MONO # 0.6 10*3/uL (0.1-1.0); MONO % 11.9 % (3.0-9.0); NEUT # 2.9 10*3/uL (2.3-7.9); NEUT % 55.8 % (47.0-73.0); PLATELET COUNT AUTOMATED 124 10*3/uL (130-400); RED BLOOD COUNT 3.49 10*6/uL (4.50-5.90); RED CELL DISTRI WIDTH 12.5 % (0-14.5); WHITE BLOOD COUNT 5.2 10*3/uL (4.8-10.8)
[2018-02-26 08:00] VITALS: BP 140/80
[2018-02-26 12:00] VITALS: BP 132/72
[2018-02-26 16:00] VITALS: BP 148/80
[2018-02-26 20:00] VITALS: BP 139/85
[2018-02-27] VITALS (7 sets, daily range): BP systolic 113–154; BP diastolic 62–94
[2018-02-28 06:18] LABS: HEMATOCRIT 40.1 % (42.0-52.0); HEMOGLOBIN 13.7 g/dl (14.0-18.0); MEAN CORPUSCULAR HGB 33.8 pg (27.0-31.0); MEAN CORPUSCULAR HGB CONC 34.2 g/dl (33.0-37.0); MEAN PLATELET VOLUME 9.8 fl (9.6-12.3); PLATELET COUNT AUTOMATED 193 10*3/uL (130-400); RED BLOOD COUNT 4.05 10*6/uL (4.50-5.90); RED CELL DISTRI WIDTH 12.5 % (0-14.5); WHITE BLOOD COUNT 4.4 10*3/uL (4.8-10.8)
[2018-02-28 06:33] LABS: ALBUMIN 3.3 gm/dl (3.1-4.5); ALKALINE PHOSPHATASE 69 U/L (45-117); BUN 4 mg/dl (7-24); CHLORIDE 104 mmol/L (98-107); CREATININE 0.44 mg/dL (0.70-1.30); POTASSIUM 3.4 mmol/L (3.5-5.1); SGOT/AST 37 IU/L (3-35); SGPT/ALT 41 U/L (12-78); SODIUM 138 mmol/L (136-145); TOTAL PROTEIN 7.7 gm/dL (6.4-8.2)
[2018-02-28 06:52] LABS: PLATELET SUFFICIENCY NORMAL (NORMAL); TOTAL CELLS COUNTED 100 #CELLS
[2018-02-28 08:00] VITALS: BP 143/83
[2018-02-28 16:00] VITALS: BP 130/95
[2018-02-28 20:00] VITALS: BP 144/79
[2018-03-01] VITALS: BP 141/80
[2018-03-01 08:00] VITALS: BP 135/88
[2018-03-01 08:04] LABS: HEMATOCRIT 38.5 % (42.0-52.0); HEMOGLOBIN 13.3 g/dl (14.0-18.0); MEAN CELL VOLUME 99.7 fl (80.0-94.0); MEAN CORPUSCULAR HGB 34.5 pg (27.0-31.0); MEAN CORPUSCULAR HGB CONC 34.5 g/dl (33.0-37.0); MEAN PLATELET VOLUME 9.3 fl (9.6-12.3); PLATELET COUNT AUTOMATED 214 10*3/uL (130-400); RED BLOOD COUNT 3.86 10*6/uL (4.50-5.90); RED CELL DISTRI WIDTH 12.5 % (0-14.5)
[2018-03-01 08:24] LABS: BUN 4 mg/dl (7-24); CHLORIDE 100 mmol/L (98-107); CREATININE 0.54 mg/dL (0.70-1.30); PHOSPHOROUS 3.4 mg/dL (2.5-4.9); POTASSIUM 3.6 mmol/L (3.5-5.1); SODIUM 134 mmol/L (136-145)
[2018-03-01 08:25] LABS: TOTAL CELLS COUNTED 100 #CELLS
[2018-03-01 08:26] LABS: PLATELET SUFFICIENCY NORMAL (NORMAL)
[2018-03-01] MEDS ORDERED: THERA TABLET400 MCG PO (10:23)
[2018-03-01] MEDS ORDERED: NATURE'S BLEND F1 MG PO (10:23)
[2018-03-01] MEDS ORDERED: NATURE'S BLEND100 M2 PO (10:23)
[2018-03-01] MEDS ORDERED: LIBRIUM5 MG PO (10:24)
== END 2018-03-01 12:30 | disposition home or self-care (01) | DRG 641 ==
LOC: ED 17:46 → ICCU 18:16 → EDHOLD 18:16 → ICCU 18:35 → 4E 02-27 14:48
PROVIDERS: Emergency Medicine; Internal Medicine; Student in an Organized Health Care Education/Training Program
PROC: 4A02XM4 Measurement of Cardiac Total Activity, External Approach (ICD-10-PCS; principal; 2018-02-28)
PROC: 3E073KZ Introduction of Other Diagnostic Substance into Coronary Artery, Percutaneous Approach (ICD-10-PCS; 2018-02-28)
DX: E87.6 Hypokalemia (principal); F10.231 Alcohol dependence with withdrawal delirium; D69.6 Thrombocytopenia, unspecified; E83.42 Hypomagnesemia; R11.0 Nausea; E87.1 Hypo-osmolality and hyponatremia; I11.9 Hypertensive heart disease without heart failure; R71.8 Other abnormality of red blood cells; R74.0 Nonspecific elevation of levels of transaminase and lactic acid dehydrogenase [LDH]; R80.9 Proteinuria, unspecified; R82.4 Acetonuria; K21.9 Gastro-esophageal reflux disease without esophagitis; E03.9 Hypothyroidism, unspecified; E78.2 Mixed hyperlipidemia; F32.9 Major depressive disorder, single episode, unspecified; F41.9 Anxiety disorder, unspecified; E66.3 Overweight; R07.81 Pleurodynia; R94.31 Abnormal electrocardiogram [ECG] [EKG]; Z79.899 Other long term (current) drug therapy; Z79.82 Long term (current) use of aspirin; Z72.0 Tobacco use; Z82.49 Family history of ischemic heart disease and other diseases of the circulatory system; Z68.25 Body mass index [BMI] 25.0-25.9, adult

== ENCOUNTER 2018-05-14 06:39 | Emergency (ER) | payer OTHER ==
[~2018-05-14] VITALS: Ht 167.6 cm; Wt 70.3 kg
[~2018-05-14 06:39] MED LIST changes: +LIBRIUM5 MG PO; +MEN'S MULTIVI200 MCG PO; +NATURE'S BLEND F1 MG PO; +NATURE'S BLEND100 M2 PO; +THERA TABLET400 MCG PO
[2018-05-14 07:45] LABS: BILIRUBIN NEGATIVE (NEGATIVE); BLOOD NEGATIVE (NEGATIVE); CLARITY CLEAR (CLEAR); COLOR YELLOW (YELLOW); GLUCOSE NEGATIVE (NEGATIVE); KETONE NEGATIVE (NEGATIVE); LEUKO ESTERASE NEGATIVE (NEGATIVE); NITRITE NEGATIVE (NEGATIVE); PH 6.5 (5.0-9.0); SPECIFIC GRAVITY <= 1.005 (1.005-1.030); UROBILINOGEN 0.2 E.U./dl (0.2-1.0)
[2018-05-14 07:54] LABS: URINE AMPHETAMINES < 1000 (1000ng/ml); URINE BARBITURATES < 200 (200ng/ml); URINE BENZODIAZEPINES < 200 (200ng/ml); URINE CANNABINOIDS (THC) < 50 (50ng/ml); URINE COCAINE < 300 (300ng/ml); URINE METHADONE < 300 (300ng/ml); URINE OPIATES < 300 (300ng/ml); URINE PHENCYCLIDINE < 25 (25ng/ml)
[2018-05-14] MEDS ORDERED: Motrin,Rufen800 MG PO (08:01)
[2018-06-01] MEDS ORDERED: KEPPRA500 MG PO (16:45)
== END 2018-05-14 08:15 | disposition home or self-care (01) ==
LOC: ED 06:39
PROVIDERS: Emergency Medicine
DX: S70.01XA Contusion of right hip, initial encounter (principal); M54.5 Low back pain; I10 Essential (primary) hypertension; K21.9 Gastro-esophageal reflux disease without esophagitis; E03.9 Hypothyroidism, unspecified; E78.2 Mixed hyperlipidemia; F17.200 Nicotine dependence, unspecified, uncomplicated; Z79.899 Other long term (current) drug therapy; Z79.82 Long term (current) use of aspirin; W19.XXXA Unspecified fall, initial encounter; Y93.89 Activity, other specified; Y92.89 Other specified places as the place of occurrence of the external cause; Y99.8 Other external cause status

== ENCOUNTER 2018-10-27 06:42 | Inpatient (IN) | payer OTHER ==
[~2018-10-27] VITALS: Ht 167.6 cm; Wt 76.3 kg
[2018-10-27] VITALS (8 sets, daily range): BP systolic 110–172; BP diastolic 66–98
--- NOTE | ~2018-10-27 | PR ---
[place], [place] PROGRESS NOTE NAME: JOSE MANUEL BIRD UNIT #: [id number] ROOM: 409 DOCTOR: EDDI ALEXANDER MD BIRTHDATE: [birth year] DOS: 11/02/2018 PULMONARY PROGRESS NOTE SUBJECTIVE: He has been noted comfortable at this time, expectorating purulent secretion this morning. Denies symptoms of fever or chills. Denies symptoms of hemoptysis or any chest pain. OBJECTIVE: VITAL SIGNS: Which have been recorded showed normal temperature, respirations 16, heart rate 79, blood pressure 118/94. The pulse oxygen saturation was recorded as 96% saturation at rest on room air. HEENT: Shows head was atraumatic, eyes nonicterus. NECK: Supple. CARDIOVASCULAR: S1 and S2 is audible. LUNGS: The patient was noted without any wheeze or crackles at the present time. Breaths are noted [id number]-[id number]-arpuxroevc diminished bilaterally. ABDOMEN: Soft, nontender. Bowel sounds are present. EXTREMITIES: No acute change. LABORATORY DATA: CBC: WBC count 12.5, hemoglobin 12.4. Platelet count was normal. BMP that was done was noted with BUN normal, creatinine was normal, sodium 129. IMPRESSION: 1. The patient with interstitial ground glass opacity noted in the lungs bilaterally. 2. Suspicion of acute pneumonia, which was noted interstitial. Viral or bacterial in origin remains in consideration. 3. History of chronic alcohol dependence. 4. Recurrent hyponatremia as well. PLAN OF MANAGEMENT: The patient will be continued on current plan of treatment at this time as ongoing. If the finding remains persistent for this patient, consider bronchoscopy for further diagnosis and assessment. [place], [place] PROGRESS NOTE NAME: JOSE MANUEL BIRD UNIT #: [id number] ROOM: 409 DOCTOR: EDDI ALEXANDER MD BIRTHDATE: [birth year] EDDI ESTEBAN MD CM:PNTRANS 1240 2 EDDI GUERRERO MD 11/03/18 011 interface
--- NOTE | ~2018-10-27 | PR ---
[place], [place] PROGRESS NOTE [id number] #: [id number] ROOM: 409 DOCTOR: EULALIA GUERRERO MD,EDDI BIRTHDATE: [birth year] DOS: 11/06/2018 SUBJECTIVE: The patient was noted comfortable at this time, resting in the bed without any acute distress. Coughing has been subsiding gradually. Shortness of breath has improved significantly. OBJECTIVE: VITAL SIGNS: For the patient which has been recorded showed normal temperature, respiratory rate 16, heart rate 68, and blood pressure 120/66. Pulse ox saturation on room air 97% saturation. HEENT: Examination shows head was atraumatic. Eyes nonicterus. NECK: Supple. CARDIOVASCULAR: S1, S2 is audible. LUNGS: The patient without any wheeze or crackle this morning. ABDOMEN: Soft and nontender. Bowel sounds present. EXTREMITIES: No acute change. IMPRESSION: 1. Progressive improvement and resolution of acute respiratory symptom noted for the acute pneumonia radiologically and clinically. 2. Hyponatremia. 3. Chronic alcohol dependence as well. 4. Eosinophilia also noted. The possibility of elevated eosinophil count secondary to interstitial lung disease including allergic bronchopulmonary aspergillosis cannot be excluded. PLAN OF MANAGEMENT: Tapering dose of prednisone. The patient will be strongly advised to be assessed in the office for further assessment of his current pulmonary disease. Other therapy, plan of management. Abstinence tobacco use was encouraged. EDDI ESTEBAN MD CM:PNTRANS 1129 1459 EDDI GUERRERO MD 11/06/18 1459 interface
--- NOTE | ~2018-10-27 | EKG ---
[place], [place] ELECTROCARDIOGRAM REPORT NAME: JOSE MANUEL BIRD UNIT #: [id number] ROOM: 409 DOCTOR: KAILYN DRAFT REPORT BIRTHDATE: [birth year] [facility] Test Date: 2018-10-27 Test Time: 08:18:16 Pat Name: JOSE MANUEL BIRD Department: Room: 409 Gender: M Acid Loader: Zina Coreas : 1960 Requested By: COLBY AMIN Order Number: [id number] Reading MD: Venkatesh Parra MD Measurements Intervals [place] Rate: 96 P: 65 RI: 170 QRS: -22 QRSD: 99 T: 21 QT: 377 QTc: 477 Interpretive Statements Sinus rhythm Borderline left axis deviation Electronically Signed On 10-28-2018 4:39:05 PST by Venkatesh Parra MD CM:EKGRPT:ELECTROCARDIOGRAM REPORT [id number] COLBY AVINA DRAFT REPORT COLBY AMIN M.D.
--- NOTE | ~2018-10-27 | PR ---
[place], [place] PROGRESS NOTE NAME: JOSE MANUEL BIRD [facility] #: [id number] UNIT #: [id number] ROOM: 409 DOCTOR: LAM JACOME MD BIRTHDATE: [birth year] DOS: 11/02/2018 CARDIOLOGY PROGRESS NOTE SUBJECTIVE: The patient was seen at his bedside today 11/02/2018 for followup of atherosclerotic heart disease. He is a 58-year-old man who has had atypical chest pain and abnormal electrocardiograms in the past. Evaluation last summer included a stress test, which was normal. He presented to the hospital on this occasion for alcohol withdrawal and did have a mild elevation in his troponin without atypical rise and fall pattern. Once again, his electrocardiogram did appear to be abnormal and therefore cardiac stress testing was done, it did show evidence for an apical and distal inferior infarction. Overall, left ventricular systolic function was only mildly impaired with an ejection fraction of 50%. He had no evidence for ongoing ischemia. His chest x-ray, however, does show severe pneumonia involving most of his right lung and part of the left. He has been treated with antibiotics, and he states that his breathing is easing up. He no longer coughs incessantly. PHYSICAL EXAMINATION: VITAL SIGNS: Today, pulse is 79 and regular, blood pressure 118/94. He is afebrile. NECK: His neck is supple. He has no jugular distention. Carotids are full. LUNGS: Respirations are unlabored. Chest is clear. HEART: Has a regular rhythm. He has a fourth heart sound, but no third heart sound. ABDOMEN: Benign. EXTREMITIES: Showed no edema. LABORATORY DATA: Hemoglobin is 12.4, white count 12,500. Sodium 129, potassium 3.6, BUN 9, creatinine 0.46. Renal functions are normal. IMPRESSION AND PLAN: 1. Chronic alcohol abuse. 2. Alcohol withdrawal. 3. Bilateral pneumonia. 4. Evidence for myocardial infarction involving the left ventricular apex and distal inferior wall sometime between 02/2018 and 10/2018. The patient's infarction appears to be completed, and he does not have any ongoing obvious ischemia. 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 Once that has been resolved and he is ambulatory as well as clean and sober, we can consider an invasive workup if he continues to have any sort of breathing difficulties, chest pain, etc. For now, I would continue to treat him empirically with aspirin, statin, beta manoj, etc. I thank the hospitalist physicians for asking our advice regarding his care. [place], [place] PROGRESS NOTE NAME: JOSE MANUEL BIRD UNIT #: [id number] ROOM: 409 DOCTOR: LAM JACOME MD BIRTHDATE: [birth year] LAM JACOME MD CM:PNTRANS [id number] LAM JACOME MD 11/03/18 0004 interface
--- NOTE | ~2018-10-27 | PR ---
[place], [place] PROGRESS NOTE NAME: [id number] UNIT #: [id number] ROOM: 409 DOCTOR: EULALIA GUERRERO MD,EDDI BIRTHDATE: [birth year] DOS: 11/04/2018 SUBJECTIVE: The patient is noted comfortable without any acute distress. Denies symptoms of fever or chills. Coughing has been subsiding gradually. There are no symptoms of chest pain. Shortness of breath is improving. OBJECTIVE: VITAL SIGNS: Normal temperature, respiratory rate 20, heart rate of 73, blood pressure 101/52. HEENT: Examination shows head IS atraumatic. Eyes nonicterus. NECK: Supple. CARDIOVASCULAR: S1, S2 are audible. LUNGS: Without any wheeze or crackles. ABDOMEN: Soft, nontender. Bowel sounds present. EXTREMITIES: No acute change. IMPRESSION: Resolving acute pneumonia gradually and progressively in the patient with improving respiratory status as well. PLAN OF MANAGEMENT: No changes in the plan of care at this time. Continuation of current therapy as the patient has been in progress. Usual care. Supportive plan of management. EDDI ESTEBAN MD CM:PNTRANS [phone] EDDI GUERRERO MD 11/05/186 interface
--- NOTE | ~2018-10-27 | EKG ---
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
--- NOTE | ~2018-10-27 | PR ---
[place], [place] PROGRESS NOTE NAME: JOSE MANUEL BIRD [facility] #: [id number] UNIT #: [id number] ROOM: 409 DOCTOR: GEORGINA SIM MD BIRTHDATE: [birth year] DOS: 11/03/2018 NEPHROLOGY FOLLOWUP NOTE SUBJECTIVE: The patient is seen and examined. He was awake and alert. He was lying on bed on room air. He states he is feeling a little bit better. Denied nausea or vomiting to me. He is trying to eat better. PHYSICAL EXAMINATION: VITAL SIGNS: Temperature afebrile, pulse 72, respiration rate 16, and blood pressure 105/62. HEENT: Shows no JVD. Sclerae are anicteric. LUNGS: Diminished breath sounds with occasional wheeze. HEART: S1, S2. No rub, thrill, or gallop. ABDOMEN: Soft, nontender. EXTREMITIES: Showed no edema. SKIN: Showed no rash. LABORATORY DATA: Hemoglobin 12.6, white count 9.5, and platelets 358. Sodium 131, potassium 3.6, CO2 of 27, BUN 9, creatinine 0.5, glucose 132, phosphorus 3.0, and magnesium 1.7. IMPRESSION: 1. Hyponatremia. The etiology is not clear. Questionable SIADH with elevated urine osmolality and the appearance of euvolemia. The patient's serum sodium level is stable and somewhat improved. Continue ongoing supportive care. Avoid thiazide diuretics. Encourage oral intake, particularly increasing osmoles/protein. There is no need for hypertonic saline at this time. 2. Pneumonia. The patient is on antibiotics. Management per the primary service. 3. Mild anemia. Follow H and H. Transfuse as needed. GEORGINA SIM MD CM:PNTRANS [id number] GEORGINA SIM MD 11/04/18 0714 interface
--- NOTE | ~2018-10-27 | PR ---
[place], [place] PROGRESS NOTE [id number] UNIT #: [id number] ROOM: 409 DOCTOR: EULALIA GUERRERO MD,EDDI BIRTHDATE: [birth year] DOS: 11/03/2018 SUBJECTIVE: The patient has been noted comfortably, resting on the bed. Coughing has been noted intermittent sputum expectoration. There were no symptoms of chest pain, fever, or chills. The patient has not been reported any new acute complaints this morning of assessment. OBJECTIVE: VITAL SIGNS: For the patient was reported normal temperature, respiratory rate of 20, heart rate 78, blood pressure 128/82. Pulse oxygen saturation recorded at 95% saturation on room air. HEENT: Examination shows head was atraumatic. Eyes nonicterus. NECK: Supple. CARDIOVASCULAR: S1, S2 audible. LUNGS: Scattered crackles, no wheezing. ABDOMEN: Soft and nontender. Bowel sounds present. EXTREMITIES: No edema. LABORATORY DATA: BMP today, sodium 131. Potassium was normal. BUN and creatinine were normal. CBC this morning: WBC count was normal. The chest x-ray done this morning resolving interstitial infiltration of the lung, the resolution is noted incomplete. IMPRESSION: The patient with recurrent hyponatremia that was noted with bilateral interstitial pneumonia, which has been gradually improving, possibility of viral organism consideration was considered. PLAN OF MANAGEMENT: No changes in the plan at the present time. Continue current therapy as previously. Usual care. Supportive therapy, plan of management, care plan and treatments. EDDI ESTEBAN MD CM:PNTRANS [phone] EDDI GUERRERO MD 11/03/182008 interface
--- NOTE | ~2018-10-27 | CON ---
[place], [place] REPORT OF CONSULTATION NAME: [facility]EL [facility]IRD [id number] UNIT #: [id number] ROOM: 409 DOCTOR: KHADIJAH PHD NEIL BIRTHDATE: [birth year] DOS: 10/30/2018 HISTORY OF PRESENT ILLNESS: The patient is a 58-year-old male referred by the hospitalist with concerns for altered mental status. The patient has a long history of alcohol abuse. He reports drinking about 24 beers per day. He is presently on the 4th floor at [facility]. He is from his and lives alone. He has 3 children. He works with [employer], although states that he plans to retire soon due to physical issues. In addition to his alcohol use, he smokes a pack a day of cigarettes and denies illegal drug use. PAST MEDICAL HISTORY: Alcohol dependence, anemia, anxiety, compression fracture of the fourth lumbar vertebra, depression, elevated AST, GERD, hypertension, hyponatremia, hypothyroid, mixed hyperlipidemia, tachycardia, vitamin D deficiency. MEDICATIONS: Solu-Medrol, DuoNeb, Nicoderm, Cepacol, Cymbalta, aspirin, Synthroid, Prilosec, vitamin D, Zestril, Lovenox, Protonix, Neurontin, Keppra, Vistaril, Dulcolax, Zofran, Tylenol, Ativan, Bactroban, potassium phosphate, K-Dur. The patient was awake, alert and oriented to person and place. He gave the date is 12/2015. He knew that [facility] is the current President and [facility] was the past President and could not provide any current events. He endorsed depression, which he relates to not being able to work. Affect was blunted. He firmly denied suicidal and homicidal ideation, plan, and intent. He states that he does not want to and wants to live for his kids and grandkids. Speech and language were within normal limits. The patient appeared somewhat confused at times. There was no evidence of hallucinations or delusions. He did not appear to be paranoid and his behavior was stable and he was aware that he had a bed alarm that needed to be turned off before he went to the bathroom. He states that he denied any further mental health needs at this time aside from his current medication regimen. He does not want to pursue any type of inpatient or outpatient alcohol treatment and does not want to pursue any further mental health treatment at this time as well. DIAGNOSES: Alcohol use disorder, unspecified depressive disorder, unspecified anxiety disorder. RECOMMENDATIONS: I recommended that the patient follow up with counseling and alcohol treatment, he however, declined this recommendation. He does not appear to be an appropriate candidate for the [facility] at this time. Thank you very much for this consult. [place], [place] REPORT OF CONSULTATION NAME: JOSE MANEUL BIRD UNIT #: [id number] ROOM: 409 DOCTOR: KHADIJAH, PHD NEIL BIRTHDATE: [birth year] Alena Mccray, PhD CM:CONSTR:REPORT OF CONSULTATION 0912 10/31/18 0746 interface
--- NOTE | ~2018-10-27 | CON ---
[place], [place] REPORT OF CONSULTATION NAME: JOSE MANUEL BIRD [facility] #: [id number] UNIT #: [id number] ROOM: 409 DOCTOR: EDDI ALEXANDER MD BIRTHDATE: [birth year] DOS: 11/01/2018 REASON FOR CONSULTATION: For assessment of current acute pneumonia and respiratory distress. HISTORY OF PRESENT ILLNESS: This is a 58-year-old white male who has been noted with history of chronic alcohol dependence. The patient has been treated in the hospital and managed for alcohol withdrawal. On the day of 10/31/2018, the patient developed acute respiratory distress, diaphoresis and tachycardia. He has been assessed yesterday, the patient underwent CT of the chest which does not show any evidence of pulmonary embolism; however, acute pulmonary infiltration noted in the lungs bilaterally with suspicion of acute pneumonia. The patient has been treated with antibiotic. This morning the patient was seen, he was noted a poor historian, but complaining of some chest congestion and coughing and shortness of breath. Denies symptoms of chest pain, hemoptysis at the present time. REVIEW OF SYSTEMS: The patient is very limited; however, the patient does complain of some fatigue and tiredness. Denies any symptoms of fever or chills. EYES: Denies burning, redness, or tenderness. EARS, NOSE, AND THROAT SYMPTOMS: Denies sore throat, hoarseness, otalgia, postnasal drainage or epistaxis. CARDIOVASCULAR: Denies angina pain, edema, pain of the lower extremities. GASTROINTESTINAL: No dysphagia, nausea, vomiting, diarrhea, abdominal pain, hematemesis, melena, or hematochezia. SKIN: Denies abnormal lesions or rashes. MUSCULOSKELETAL: No acute joint pain, redness, or tenderness. CENTRAL NERVOUS SYSTEM: General weakness reported. Denies any focal neurologic deficit. Remaining systems were reviewed. They were noted all negative. PAST MEDICAL HISTORY: 1. The patient was known with history of an anxiety disorder. 2. Chronic alcohol dependence with the previous detoxification for the patient. 3. Hypothyroidism. 4. Essential hypertension. 5. Gastroesophageal reflux. 6. Nicotine dependence. 7. Vitamin D deficiency. PAST SURGICAL HISTORY: 1. Surgical manipulation of the ankle, right side after fracture. 2. Therapeutic bronchoscopy that was done in 01/2018. SOCIAL HISTORY: The patient lives at home, has been known with a history of use of cocaine, marijuana and tobacco use of 1 to 2 packs of cigarettes per day, active use. FAMILY HISTORY: About father was unknown. Mother at the age of 61 years [place], [place] REPORT OF CONSULTATION NAME: JOSE MANUEL BIRD UNIT #: [id number] ROOM: 409 DOCTOR: EULALIA GUERRERO MD,EDDI BIRTHDATE: 56 old with complication of heart disease. CURRENT MEDICATIONS: Administered for the patient were noted as use of Lovenox for DVT prophylaxis, Lipitor, metoprolol tartrate, levalbuterol, Solu-Medrol 40 mg b.i.d., nicotine replacement patches, Cymbalta, aspirin, levothyroxine, omeprazole, vitamin D, lisinopril, Keppra, vancomycin, Levaquin and Zosyn. DRUG ALLERGIES: Noted as no known drug allergies. PHYSICAL EXAMINATION: GENERAL: This is a 58-year-old white male, currently lying in the bed, using oxygen supplementation via nasal cannula comfortably in his bed. Height of 5 feet 6 inches, weight 168 pounds. BMI 27. VITAL SIGNS: Normal temperature of the patient last 24-four respiratory 20-16, heart rate of 114-83, blood pressure 120/65-154/90. Pulse oxygen saturation recorded at rest on room air is 96% saturation. previously 2 liter nasal 94% saturation of oxygen. HEENT: Mild to moderate obese. Head was atraumatic. Decreased posterior pharyngeal space, high tongue base crowding soft tissue structures. CARDIOVASCULAR: S1, S2 is audible. LUNGS: The patient was noted without any wheezing. Scattered crackles Noted at the present time. ABDOMEN: Soft, nontender. Bowel sounds present. EXTREMITIES: No acute edema. MUSCULOSKELETAL: Without any acute deformities. Cranial nerves 2-12 intact. LABORATORY DATA: CBC that was done on 10/27/2018, hemoglobin 13.2, WBC count and platelet count normal. CMP done on 10/27/2018, normal BUN and creatinine. Sodium 119 at that time. Potassium 3.2, chloride of 83. ETOH level noted as 62. The vancomycin level today was noted 12.2. CBC that was done this morning, WBC count 17.7, hematocrit 13.4, hematocrit 39.9, MCV 100. The platelet count 335,000 with 77% neutrophils, 11% lymphocytes. CMP of this morning, BUN normal, creatinine was normal, sodium 132, mildly low. Albumin, 2.6. Remaining LFTs were normal. Review of the chest x-ray that was done on 10/31/2018 shows patchy area of infiltration noted in the left infrahilar area as well as in the right lower lobe. The chest x-ray that was done previously prior to yesterday was seen with small area of atelectasis noted on 10/30/2018 in right lower lobe; however, left side infiltration was not seen. CT of the chest yesterday shows evidence of ground glass opacity, which was present in different parts of the lungs, sparing some of the lung as well. Some consolidative changes of was also noted in both lower lungs right and the left lower lobe with ground glass opacity is the predominant problem. The infiltrates were also appeared to be a significant perihilar in origin with some previous infiltration noted in the left apex. CBC that was done yesterday showed WBC count elevated 32.7 at that time. IMPRESSION: 1. The patient had been noted with respiratory distress, bilateral pulmonary infiltration with ground glass opacities. The patient was noted with a differential of acute interstitial pneumonitis related to acute bacterial [place], [place] REPORT OF CONSULTATION NAME: JOSE MANUEL BIRD UNIT #: [id number] ROOM: [facility] DO[facility] B[facility] [birth year] infection. Aspiration cannot be completely excluded. Other differential noninfection to be considered as atypical of cardiogenic or noncardiogenic pulmonary edema picture. The other etiology would be considered for the patient with current finding for the patient, such as hypersensitivity pneumonitis with the patient in the differential diagnosis. Allergic drug reaction certainly cannot be excluded as well. 2. The patient with history of seizure as well as alcohol withdrawal as well. PLAN OF MANAGEMENT: At this time, patient getting very broad spectrum intravenous antibiotics resulting in reduction of the steroids. Ordered the urine for legionella antigen, the nasal washing for influenza A and B, nasal washing also done. Continue the steroids patient mostly for the management of noninfectious etiology or the LDH for the patient as well. Fibrobronchoscopy could be done for the patient if necessary for further assessment. Other supportive therapy, plan of management. Titrate oxygen supplementation to maintain pulse ox saturation 92% or greater. Other additional treatment changes will be recommended based on progression of the illness. Monitoring all the other culture results as ordered including sputum for Gram stain culture. The viral etiology will be assessed with a limited vital profile, nasopharyngeal swab. Avoid any excessive fluid supplementation as well. The patient has been already assessed by Cardiology Services. There were no cardiac problem noted including a normal stress test with the patient, which performed by the Cardiology Services, Dr. Mcneill. Follow the recommendation for any additional changes or assessment release the patient accordingly. EDDI ESTEBAN MD CM:CONSTR:REPORT OF CONSULTATION 1452 11/12/18 0950 interface
--- NOTE | ~2018-10-27 | EKG ---
[place], [place] ELECTROCARDIOGRAM REPORT NAME: JOSE MANUEL BIRD UNIT #: [id number] ROOM: 409 DOCTOR: KAILYN DRAFT REPORT BIRTHDATE: [birth year] [facility] Test Date: 2018-10-30 Test Time: 20:34:42 Pat Name: JOSE MANUEL BIRD Department: Room: 409 1 Gender: M Correctional Therapy Director: Arlene Khan : 1960 Requested By: SRAVANI HUA Order Number: [id number] Reading MD: Mahamed Mcneill MD Measurements Intervals [place] Rate: 141 P: 247 FL: 73 QRS: -22 QRSD: 90 T: 169 QT: 339 QTc: 519 Interpretive Statements Sinus or ectopic atrial tachycardia Borderline left axis deviation Abnormal R-wave progression, late transition Abnormal T, consider ischemia, diffuse leads Prolonged QT interval Compared to ECG 10/27/2018 08:18:16 T-wave abnormality now present Possible ischemia now present Prolonged QT interval now present Sinus rhythm no longer present Electronically Signed On 10-31-2018 16:46:44 PST by Mahamed Mcneill MD CM:EKGRPT:ELECTROCARDIOGRAM REPORT 33 [id number] SRAVANI MERCEDES DRAFT REPORT SRAVANI HUA DO
--- NOTE | ~2018-10-27 | EKG ---
[place], [place] ELECTROCARDIOGRAM REPORT NAME: JOSE MANUEL BIRD UNIT #: [id number] ROOM: 409 DOCTOR: KAILYN DRAFT REPORT BIRTHDATE: [birth year] [facility] Test Date: 2018-10-31 Test Time: 02:30:35 Pat Name: JOSE MANUEL BIRD Department: Room: 409 1 Gender: M [employer]: Cassie Molina : 1960 Requested By: SRAVANI HUA Order Number: [id number] Reading MD: Mahamed Mcneill MD Measurements Intervals [place] Rate: 99 P: 50 PA: 154 QRS: -12 QRSD: 93 T: 230 QT: 427 QTc: 549 Interpretive Statements Sinus rhythm Abnormal T, probable ischemia, widespread Prolonged QT interval No change from earlier ECG this date Electronically Signed On 10-31-2018 16:51:55 PST by Mahamed Mcneill MD CM:EKGRPT:ELECTROCARDIOGRAM REPORT 0230 1651 SRAVANI MERCEDES DRAFT REPORT SRAVANI HUA DO
--- NOTE | ~2018-10-27 | PR ---
[place], [place] PROGRESS NOTE NAME: JOSE MANUEL BIRD [facility] #: [id number] UNIT #: [id number] ROOM: 409 DOCTOR: LAM JACOME MD BIRTHDATE: [birth year] DOS: 11/01/2018 SUBJECTIVE: The patient was seen at his bedside today, 11/01/2018 for followup of his abnormal electrocardiogram. He is a 58-year-old man who has a history of long-term heavy alcohol use. He presented to the hospital on this occasion for alcohol intoxication and is being treated for withdrawal. While in the hospital, he became tachypneic and tachycardic and developed severe coughing. An electrocardiogram did show deep symmetric T-wave inversions in the mid and lateral precordium. He had been evaluated in 02/2018. At which time, he did have similar EKG changes. A pharmacologic stress test at that time was reported to be normal. I reviewed the images and agreed that the study was low risk; however, on this occasion, he does have a mild elevation in troponin without a typical rise and fall pattern to suggest an acute event. A pharmacologic stress test was done on 10/31/2018 and showed an apical infarction, which was not present during his evaluation in 02/2018. He had no ongoing ischemia. Overall, left ventricular systolic function is preserved with an ejection fraction of 50%. At this point, ongoing medical therapy seems most appropriate and cardiac catheterization would not be indicated acutely. The patient states that he is still having a hard time breathing, but he is coughing much less than he was yesterday. PHYSICAL EXAMINATION: VITAL SIGNS: His pulse is 85 and regular. Blood pressure is 128/68. He is afebrile. He weighs 76.3 kilograms with a body mass index of 27.2. NECK: Supple. He has no jugular distention. LUNGS: Respirations are unlabored at rest and he is able to lay flat. He has decreased breath sounds bilaterally with expiratory prolongation and scattered wheezes. I did not hear any rales. He had no presacral edema. HEART: Had a regular rhythm with an S4 gallop, but no S3 or murmur. EXTREMITIES: Showed no edema. IMPRESSION: 1. Chronic alcohol abuse. 2. Alcohol withdrawal. 3. Bilateral pneumonia. 4. Evidence for myocardial infarction involving the left ventricular apex and distal inferior wall, sometime between 02/2018 and 10/2018. The patient's infarction appears to have been completed and he does not have any obvious ongoing ischemia. PLAN: I would aggressively treat his pneumonia. Once that has been resolved and he is ambulatory as well as off of all alcohol products, we can consider an invasive workup if he continues to have any sort of breathing difficulties, chest pain, etc. For now, I would treat him empirically with aspirin, statin, beta blockers, etc. I thank the hospitalist physicians for asking our advice regarding his care. [place], [place] PROGRESS NOTE NAME: JOSE MANUEL BIRD UNIT #: [id number] ROOM: 409 DOCTOR: LAM JACOME MD BIRTHDATE: [birth year] LAM JACOME MD CM:PNTRANS [id number] LAM JACOME MD 11/02/18 0725 interface
--- NOTE | ~2018-10-27 | PR ---
[place], [place] PROGRESS NOTE NAME: JOSE MANUEL BIRD UNIT #: [id number] ROOM: 409 DOCTOR: EDDI ALEXANDER MD BIRTHDATE: [birth year] DOS: 11/05/2018 PULMONARY PROGRESS NOTE SUBJECTIVE: The patient was noted comfortable at this time, resting in the bed without any acute distress this morning was doing well. Denies symptoms of fever or chills. Denies symptoms of hemoptysis, nausea, vomiting, diarrhea, abdominal pain, hematemesis or melena. The patient denies symptoms of nausea, vomiting or diarrhea. OBJECTIVE: VITAL SIGNS: For the patient, which has been recorded shows a normal temperature, respiratory rate 20, heart rate 72, blood pressure 137/82-122/66. Pulse oxygen saturation on room air was noted 97% saturation. HEENT: Examination shows head was atraumatic. Eyes: No icterus. NECK: Supple. CARDIOVASCULAR: S1, S2 audible. LUNGS: The patient was noted without any wheeze or crackles at the present time. ABDOMEN: Soft, nontender. Bowel sounds present. EXTREMITIES: No acute edema. LABORATORY DATA: IgE level was noted elevated as 1298. Urine for legionella antigens were negative. IMPRESSION: Acute interstitial pneumonitis possibility of acute interstitial pneumonia for this patient secondary to acute eosinophilic pneumonia. Other etiologies remains in consideration normal IgE level could be seen with allergic bronchopulmonary aspergillosis as well. PLAN OF MANAGEMENT: The patient could be discharged home on oral prednisone and the antibiotic outpatient followup is suggested post-discharge as well. Obtain another chest x-ray today as well. Other additional treatment changes recommended for further assessment as outpatient and abstinence of tobacco use was recommended. [place], [place] PROGRESS NOTE NAME: JOSE MANUEL BIRD UNIT #: [id number] ROOM: 409 DOCTOR: EDDI ALEXANDER MD BIRTHDATE: [birth year] EDDI ESTEBAN MD CM:PNTRANS [id number] EDDI GUERRERO MD 11/05/[id number] interface
--- NOTE | ~2018-10-27 | PR ---
[place], [place] PROGRESS NOTE NAME: JOSE MANUEL BIRD [facility] #: [id number] UNIT #: [id number] ROOM: 409 DOCTOR: GEORGINA SIM MD BIRTHDATE: [birth year] DOS: 11/04/2018 NEPHROLOGY FOLLOWUP NOTE SUBJECTIVE: The patient was seen and examined. He is awake and alert. He was on room air. Denied any major complaints. Denied nausea or vomiting. He thinks he is feeling a little bit better. PHYSICAL EXAMINATION: VITAL SIGNS: Temperature 98.7, pulse 73, respiratory 20, blood pressure 101/54. HEENT: Shows no JVD. LUNGS: Diminished breath sounds with no wheeze. HEART: S1, S2. No rub. ABDOMEN: Soft, nontender. EXTREMITIES: Had no edema. LABORATORY DATA: Sodium 134, potassium 3.2, CO2 of 26, BUN 10, creatinine 0.65, glucose 126, calcium 8.6. ASSESSMENT AND PLAN: 1. Hyponatremia, which seems to be improving. Etiology is not clear. 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 Continue supportive care. Avoid thiazide diuretics. Encourage increasing oral intake, particularly protein. 2. Hypokalemia. Potassium has been replaced. Check magnesium level. 3. Pneumonia. Continue antibiotics per the primary service. 4. Mild anemia. Transfuse as needed. Follow H and H. GEORGINA SIM MD CM:PNTRANS [phone] GEORGINA SIM MD 11/05/18 0446 interface
[~2018-10-27 06:42] MED LIST changes: +KEPPRA500 MG PO; +Motrin,Rufen800 MG PO; +VITAMIN D-32000 UNI1 PO; -VITAMIN D-32000 UNIT PO
[2018-10-27 07:29] LABS: BASO # 0.1 10*3/uL (0.0-0.1); BASO % 0.6 % (0.0-1.0); EOS # 0.1 10*3/uL (0.0-0.4); EOS % 1.8 % (1.0-4.0); HEMATOCRIT 36.3 % (42.0-52.0); HEMOGLOBIN 13.2 g/dl (14.0-18.0); LYMPH # 1.4 10*3/uL (1.3-4.4); LYMPH % 17.5 % (27.0-41.0); MEAN CELL VOLUME 91.9 fl (80.0-94.0); MEAN CORPUSCULAR HGB 33.4 pg (27.0-31.0); MEAN CORPUSCULAR HGB CONC 36.4 g/dl (33.0-37.0); MEAN PLATELET VOLUME 8.7 fl (9.6-12.3); MONO # 1.1 10*3/uL (0.1-1.0); MONO % 14.1 % (3.0-9.0); NEUT # 4.9 10*3/uL (2.3-7.9); NEUT % 63.9 % (47.0-73.0); PLATELET COUNT AUTOMATED 280 10*3/uL (130-400); RED BLOOD COUNT 3.95 10*6/uL (4.50-5.90); RED CELL DISTRI WIDTH 10.6 % (0-14.5); WHITE BLOOD COUNT 7.7 10*3/uL (4.8-10.8)
[2018-10-27 07:44] LABS: ALKALINE PHOSPHATASE 82 U/L (45-117); BUN 4 mg/dl (7-24); CHLORIDE 83 mmol/L (98-107); CREATININE 0.48 mg/dL (0.70-1.30); POTASSIUM 3.2 mmol/L (3.5-5.1); SGOT/AST 78 IU/L (3-35); SGPT/ALT 61 U/L (12-78); TOTAL PROTEIN 7.3 gm/dL (6.4-8.2)
--- NOTE | 2018-10-27 07:45 | NUR ---
PT UNABLE TO PROVIDE URINE SPECIMEN AFTER 2 ATTEMPTS
[2018-10-27 07:53] LABS: ACETAMINOPHEN (TYLENOL) < 5.0 ug/ml (10-30)
[2018-10-27 07:54] LABS: SODIUM 119 mmol/L (136-145)
--- NOTE | 2018-10-27 08:17 | NUR ---
WHILE STANDING AT BEDSIDE USING URINAL PT BECAME SHAKEY, UNSTEADY AND DIAPHORETIC. BGL 112. EKG ORDERED. VSS.
--- NOTE | 2018-10-27 10:20 | NUR ---
A 58, admitted to , under the services of ELIJAH Calvin DO with a diagnosis of HYPONATERMIA. Chief complaint is ALTERED MENTAL STATUS. Patient arrived via stretcher from ER. Monitor applied. Initial assessment completed. Vital signs taken and recorded. ELIJAH CALVIN DO notified of admission to the unit. Orders received. See assessment for past medical history, medications and allergies. Patient and/or family oriented to unit. [address] visitation policy reviewed. Clothing/patient valuable form completed. ZACHARY URIAS
[2018-10-27] MEDS ORDERED: NEURONTIN300 MG PO (10:39)
[2018-10-27] MEDS ORDERED: VISTARIL50 MG PO (10:39)
[2018-10-27] MEDS ORDERED: CYMBALTA60 MG PO (10:40)
--- NOTE | 2018-10-27 11:28 | NUR ---
DR PANTOJA NOTIFIED OF UP TO DATE MED REC
[2018-10-27 12:15] LABS: BILIRUBIN NEGATIVE (NEGATIVE); BLOOD NEGATIVE (NEGATIVE); CLARITY CLEAR (CLEAR); COLOR YELLOW (YELLOW); GLUCOSE NEGATIVE (NEGATIVE); KETONE NEGATIVE (NEGATIVE); LEUKO ESTERASE NEGATIVE (NEGATIVE); NITRITE NEGATIVE (NEGATIVE); SPECIFIC GRAVITY <= 1.005 (1.005-1.030); UROBILINOGEN 0.2 E.U./dl (0.2-1.0)
[2018-10-27 12:24] LABS: URINE AMPHETAMINES < 1000 (1000ng/ml); URINE BARBITURATES < 200 (200ng/ml); URINE BENZODIAZEPINES < 200 (200ng/ml); URINE CANNABINOIDS (THC) < 50 (50ng/ml); URINE COCAINE < 300 (300ng/ml); URINE METHADONE < 300 (300ng/ml); URINE OPIATES < 300 (300ng/ml)
[2018-10-27 12:26] LABS: EPITHELIAL CELLS 0-2; RBC 0-2 rbc/hpf (0-2); WBC 0-2 wbc/hpf (0-5)
[2018-10-27 12:27] LABS: URINE PHENCYCLIDINE < 25 (25ng/ml)
[2018-10-27 16:28] LABS: BUN 7 mg/dl (7-24); CHLORIDE 91 mmol/L (98-107); CREATININE 0.67 mg/dL (0.70-1.30); SODIUM 126 mmol/L (136-145)
--- NOTE | 2018-10-27 20:55 | NUR ---
PT COMPLAINS OF UPSET STOMACH AND STOMACH PAIN. PT IS VERY ANXIOUS AT THIS TIME. PRN TYLENOL, ATIVAN AND ZOFRAN GIVEN AT THIS TIME. WILL MONITOR FOR EFFECTIVENESS.
[2018-10-28] VITALS: BP 145/67
--- NOTE | 2018-10-28 01:42 | NUR ---
AT APPROXIMATELY 0135 PATIENTS BED ALARM SOUNDED WENT INTO ROOM TO FIND PATIENT BESIDE BED ON ALL FOURS, INCONTINENT OF BOWEL. PATIENT ASSESSED, CLEANED UP AND ASSISTED BACK TO BED AT THIS TIME. SMALL SKIN TEAR NOTED TO RIGHT ELBOW. NURSING BEE FARMER AND DR. SLADE AWARE AT 0140. BED IS LOW, LOCKED, ALARMED, AND CALL LIGHT IS WITHIN REACH.
--- NOTE | 2018-10-28 02:20 | NUR ---
1X PRN IM GEODON GIVEN AT THIS TIME FOR AGITATION. PT TOLERATED WELL. WILL MONITOR PT RESPONSE. BED IN LOWEST, LOCKED POS, CALL LIGHT WITHIN REACH, BED ALARM MAINTAINED.
--- NOTE | 2018-10-28 02:48 | NUR ---
PATIENT REFUSING TO KEEP HEART MONITOR ON.
[2018-10-28 06:16] LABS: ALBUMIN 2.9 gm/dl (3.1-4.5); ALKALINE PHOSPHATASE 78 U/L (45-117); BUN 9 mg/dl (7-24); CHLORIDE 98 mmol/L (98-107); CHOLESTEROL 94 mg/dL (<200); FREE T4 1.04 ng/dl (0.76-1.46); HDL CHOLESTEROL 50 mg/dl (40-60); LDL CHOLESTEROL 35 mg/dL (9-159); PHOSPHOROUS 2.6 mg/dL (2.5-4.9); POTASSIUM 3.2 mmol/L (3.5-5.1); SGOT/AST 52 IU/L (3-35); SGPT/ALT 54 U/L (12-78); SODIUM 132 mmol/L (136-145); TOTAL PROTEIN 6.8 gm/dL (6.4-8.2); TRIGLYCERIDES 43 mg/dl (<150); VLDL CHOLESTEROL 9 mg/dL (6-40)
[2018-10-28 06:20] LABS: HEMATOCRIT 36.8 % (42.0-52.0); HEMOGLOBIN 13.1 g/dl (14.0-18.0); MEAN CORPUSCULAR HGB 34.5 pg (27.0-31.0); MEAN CORPUSCULAR HGB CONC 35.6 g/dl (33.0-37.0); PLATELET COUNT AUTOMATED 292 10*3/uL (130-400); RED CELL DISTRI WIDTH 11.2 % (0-14.5); WHITE BLOOD COUNT 5.3 10*3/uL (4.8-10.8)
[2018-10-28 06:21] LABS: THYROID STIM HORMONE (HS) 0.722 uIU/ml (0.358-4.75)
[2018-10-28 06:28] LABS: MEAN CELL VOLUME 96.8 fl (80.0-94.0)
[2018-10-28 07:23] LABS: VITAMIN D, 25-HYDROXY 46.8 ng/mL (30-100)
[2018-10-28 07:25] LABS: PLATELET SUFFICIENCY NORMAL (NORMAL); TOTAL CELLS COUNTED 100 #CELLS
[2018-10-28 12:00] VITALS: BP 134/74
[2018-10-28 16:00] VITALS: BP 138/76
[2018-10-28 20:00] VITALS: BP 137/85
--- NOTE | 2018-10-28 20:23 | NUR ---
NOTIFIED OF PATIENT'S C/O HEADACHE AND SORE THROAT. DISCUSSED PO CEPACHOL AND PO TYLENOL ADMINISTERED AROUND 1809 AND ARE NOT DUE TO BE GIVEN. NEW ORDER RECEIVED FOR 1 TIME DOSE PO MOTRIN 600 MG AND HALLS COUGH DROPS Q1H PRN FOR SORE THROAT.
[2018-10-29] VITALS: BP 126/83
[2018-10-29 06:24] LABS: BASO # 0.1 10*3/uL (0.0-0.1); BASO % 1.5 % (0.0-1.0); EOS # 0.1 10*3/uL (0.0-0.4); EOS % 1.8 % (1.0-4.0); HEMATOCRIT 35.9 % (42.0-52.0); HEMOGLOBIN 12.3 g/dl (14.0-18.0); LYMPH # 1.8 10*3/uL (1.3-4.4); LYMPH % 26.9 % (27.0-41.0); MEAN CELL VOLUME 98.9 fl (80.0-94.0); MEAN CORPUSCULAR HGB 33.9 pg (27.0-31.0); MEAN CORPUSCULAR HGB CONC 34.3 g/dl (33.0-37.0); MONO # 1.3 10*3/uL (0.1-1.0); MONO % 19.5 % (3.0-9.0); NEUT # 3.3 10*3/uL (2.3-7.9); NEUT % 48.2 % (47.0-73.0); PLATELET COUNT AUTOMATED 271 10*3/uL (130-400); RED BLOOD COUNT 3.63 10*6/uL (4.50-5.90); RED CELL DISTRI WIDTH 11.3 % (0-14.5); WHITE BLOOD COUNT 6.7 10*3/uL (4.8-10.8)
[2018-10-29 06:29] LABS: BUN 9 mg/dl (7-24); CHLORIDE 98 mmol/L (98-107); CREATININE 0.51 mg/dL (0.70-1.30); POTASSIUM 3.7 mmol/L (3.5-5.1); SODIUM 129 mmol/L (136-145)
--- NOTE | 2018-10-29 07:45 | NUR ---
JOSE MANUEL BIRD [id number] Please refer to the physician's history and physical for past medical history, comorbid conditions, and allergies. Diagnosis: HYPONATREMIA Papi Score: 21,LOW OR NO RISK WOUND DESCRIPTIONS: This nurse was asked to evaluate patient's right elbow. Upon assessment no open areas noted at this time. No drainage noted at this time. Patient does have several ecchymotic areas noted. Surface the patient is resting on: Isoflex SKIN PREVENTION RECOMMENDATION: 1. Pressure redistribution support surface as appropriate 2. Elevate heels 3. Remove boots/TEDS every shift and reapply 4. Head of bed 30 degrees as tolerated 5. Assess nutrition and hydration 6. Manage moisture 7. Avoid the use of containment devices while in bed 8. Use absorptive products on surfaces limit layers of linens on bed 9. Turn and reposition every 1-2 hours in bed and every 1 hour in chair as tolerated 10. Weight shifts every 15 minutes while up in chair 11. Offloading with pillows or device to keep heels elevated off bed 12. Monitor skin at least every shift 13. Inspect under medical devices twice a day
[2018-10-29 07:54] VITALS: BP 154/84
--- NOTE | 2018-10-29 08:07 | NUR ---
PT LYING IN BED. USED THE BATHROOM TWICE WHILE COMPLETING MORNING ASSESSMENT C/O DIARRHEA. PT C/O FEELING LIGHTHEADED AND WEAK TODAY. BREAKFAST WAS ORDERED. ENCOURGAED PT TO USE CALL LIGHT WHEN NEEDING TO USE THE BATHROOM. WILL CONTINUE TO MONITOR. DIANE HUDDLESTON.RCC
--- NOTE | 2018-10-29 09:00 | NUR ---
case management attempted to visit with patient, nursing staff was working with patient, will see later today
--- NOTE | 2018-10-29 09:00 | NUR ---
case management visits with patient, patient states he lives at home, gets around fine, attempted to discuss with him a discharge plan and patient didn't want to talk anymore. will see at a later time
--- NOTE | 2018-10-29 10:52 | NUR ---
PT C/O OF A HEADACHE AND A SORE THROAT. CEPACOL AND TYLENOL 650 MG GIVEN PER PATIENT REQUEST. DIANE HUDDLESTON.RCC
--- NOTE | 2018-10-29 11:00 | NUR ---
case management visits with patient, patient very drowsy at this time, not able to carry on a converstations. will see patient tomorrow and see if family members are present to talk with
[2018-10-29 11:55] VITALS: BP 130/66
--- NOTE | 2018-10-29 13:21 | NUR ---
PT PLEASANT AND COOPERATIVE. VISITING WITH FAMILY. CALL LIGHT WITHIN REACH. REPORT GIVEN TO FINA. [facility] [facility]
--- NOTE | 2018-10-29 15:23 | NUR ---
Nutritional Support Services Note: Pt is eating 75-100% of all meals served. Regular diet as ordered with Ensure po TID. Staff to encourage po intake of all meals and fluids. No other nutrition recommendations needed at this time. Will follow as needed. Selam Guerrero Rdn Ld
[2018-10-29 16:00] VITALS: BP 144/74
--- NOTE | 2018-10-29 16:18 | NUR ---
Nursing screen received and chart review completed. Patient admitted with altered mental status , delusional behavior and intoxication with metabolic encephalopathy. If patient should have a decline in ADLs, safety in mobility or require an eval for discharge planning, consider OT. Thank you. May Nichole OTR/l
--- NOTE | 2018-10-29 19:18 | NUR ---
PATIENT RESTING IN BED WITH EYES CLOSED. RESPIRATIONS EASY, NO S/S OF DISTRESS NOTED. WILL MONITOR. CALL LIGHT LEFT IN REACH.
[2018-10-29 20:00] VITALS: BP 143/74
--- NOTE | 2018-10-29 20:39 | NUR ---
PATIENT MEDICATED WITH CEPACHOL LOZENGE FOR C/O SORE/DRY THROAT. DENIES ANY OTHER PAIN/GENERALIZED DISCOMFORT AT THIS TIME. WILL MONITOR. CALL LIGHT IN REACH.
[2018-10-30 00:15] VITALS: BP 136/90
[2018-10-30 06:45] LABS: ALBUMIN 2.6 gm/dl (3.1-4.5); BUN 5 mg/dl (7-24); CHLORIDE 90 mmol/L (98-107); CREATININE 0.46 mg/dL (0.70-1.30); PHOSPHOROUS 2.3 mg/dL (2.5-4.9); POTASSIUM 3.1 mmol/L (3.5-5.1); SODIUM 125 mmol/L (136-145)
[2018-10-30 08:00] VITALS: BP 120/77
--- NOTE | 2018-10-30 11:00 | NUR ---
case management visits with patient, patient states he will be going home when able and denies any home needs. case management will follow
--- NOTE | 2018-10-30 11:00 | NUR ---
PHYSICAL THERAPY Nursing screen recieved. PT orders also received. Thank you. Brisa Morrison,PT
--- NOTE | 2018-10-30 11:16 | NUR ---
Occupational Therapy evaluation offered. Patient declined this date. May Nichole OTR/L
--- NOTE | 2018-10-30 11:40 | NUR ---
PHYSICAL THERAPY PAtient respectfully declines all PT services this date. " I do not feel well today. Not today." Michael attempt at a later date. Thank you for this referral. Brisa Morrison,PT
[2018-10-30 12:00] VITALS: BP 120/72
[2018-10-30 20:00] VITALS: BP 131/91
--- NOTE | 2018-10-30 20:48 | NUR ---
PATIENT HAVING A COUGHING EPISODE AND IS VERY ANXIOUS. TREMORS NOTED. PATIENT VERY SHAKEY. MULTIPLE MEDICATIONS ADMINISTERED AT THIS TIME TO HELP CONTROL ANXIETY/HELP PATIENT BREATHE. IV ATIVAN GIVEN FOR ANXIETY/DTs. CEPACHOL LOZENGE GIVEN TO HELP SUPPRESS COUGH. PO TYLENOL GIVEN FOR C/O HEADACHE. SCHEDULED IV SOLUMEDROL GIVEN TO DECREASE INFLAMMATION AND IMPROVE BREATHING. MELO'S COUGH DROP GIVEN AFTER CEPACHOL WAS INEFFECTIVE FOR COUGH. IV ZOFRAN GIVEN FOR NAUSEA/SPITTING UP. PATIENT IS VERY WORKED UP AND COUGHING SO HARD THAT HE IS SPITTING UP. NOTIFIED OF SITUATION. PATIENT DIAPHORETIC, PALE, TREMORING, AND OVERALL APPEARS IN DISTRESS WITHOUT RELIEF FROM PRN MEDICATIONS. HR 130S PER AUTOMATIC BP CUFF. POX 97% ON ROOM AIR. O2 APPLIED AT 2L NC FOR COMFORT. / HERE TO SEE PATIENT. PO VISTARIL ADMINISTERED AT THIS TIME FOR ANXIETY. ROBITUSSIN COUGH SYRUP ADMINISTERED FOR COUGH. NEW ORDERS RECEIVED FOR STAT EKG, CONTINUOUS CARDIAC MONITORING, LABS, AND CTA OF CHEST.
--- NOTE | 2018-10-30 21:06 | NUR ---
PATIENT REMAINS COUGHING AND DIAPHORETIC. O2 REMAINS IN USE. POX STABLE. HR 120S-140S PER CM. AWARE. ATTEMPTING TO CONTACT CT FOR CTA TO BE DONE.
--- NOTE | 2018-10-30 23:19 | NUR ---
AWARE OF PATIENT REFUSING ANY MORE IV ATTEMPTS. PATIENT'S RAC IV BLEW IN CT AND MULTIPLE 4 ATTEMPTS AT IV START HAVE BEEN MADE WITHOUT SUCCESS. PATIENT REFUSING ADDITIONAL ATTEMPTS TO BE MADE. STATES CTA WILL BE CANCELLED FOR TONIGHT.
[2018-10-31] VITALS (8 sets, daily range): BP systolic 95–154; BP diastolic 58–93
--- NOTE | 2018-10-31 00:17 | NUR ---
DR HUA NOTIFIED OF ELEVATED TROPONIN RESULT OF 0.163 NO FURTHER ORDERS AT THIS TIME.
--- NOTE | 2018-10-31 01:39 | NUR ---
SPOKE TO REGARDING D-DIMER. NEW ORDERS RECEIVED FOR SQ LOVENOX AND VQ SCAN FOR AM.
--- NOTE | 2018-10-31 01:57 | NUR ---
'S ANSWERING SERVICE CALLED REGARDING CONSULT.
--- NOTE | 2018-10-31 02:27 | NUR ---
CALLED WITH [facility]'S RECOMMENDATIONS ON LOVENOX. ORDERS CHANGED TO REFLECT PHYSICIAN'S DESIRED DOSING. WANTS FIRST DOSE TO START NOW.
[2018-10-31 02:48] LABS: HEMATOCRIT 38.5 % (42.0-52.0); HEMOGLOBIN 13.4 g/dl (14.0-18.0); MEAN CORPUSCULAR HGB 34.1 pg (27.0-31.0); MEAN CORPUSCULAR HGB CONC 34.8 g/dl (33.0-37.0); MEAN PLATELET VOLUME 8.7 fl (9.6-12.3); PLATELET COUNT AUTOMATED 292 10*3/uL (130-400); RED BLOOD COUNT 3.93 10*6/uL (4.50-5.90); RED CELL DISTRI WIDTH 11.3 % (0-14.5); WHITE BLOOD COUNT 32.7 10*3/uL (4.8-10.8)
--- NOTE | 2018-10-31 02:48 | NUR ---
SQ LOVENOX GIVEN PER ORDER. PATIENT DENIES ANY C/O CHEST PAIN AT THIS TIME. STATES HE IS OCCASIONALLY COUGHING STILL, BUT DENIES ANY PAIN IN CHEST. NOTIFIED OF THIS. ALSO AWARE THAT NEXT TROPONIN WAS DRAWN & WE ARE AWAITING RESULTS.
[2018-10-31 03:08] LABS: ALBUMIN 2.6 gm/dl (3.1-4.5); ALKALINE PHOSPHATASE 76 U/L (45-117); BUN 9 mg/dl (7-24); CHLORIDE 97 mmol/L (98-107); CREATININE 0.54 mg/dL (0.70-1.30); PHOSPHOROUS 3.4 mg/dL (2.5-4.9); SGOT/AST 45 IU/L (3-35); SGPT/ALT 46 U/L (12-78); SODIUM 131 mmol/L (136-145); TOTAL PROTEIN 7.2 gm/dL (6.4-8.2)
[2018-10-31 03:13] LABS: POTASSIUM 4.4 mmol/L (3.5-5.1)
--- NOTE | 2018-10-31 03:19 | NUR ---
NOTIFIED OF CRITICAL TROPONIN 0.147, DOWN FROM 0.163. NO NEW ORDERS RECEIVED.
[2018-10-31 03:21] LABS: PLATELET SUFFICIENCY NORMAL (NORMAL); TOTAL CELLS COUNTED 100 #CELLS
--- NOTE | 2018-10-31 03:29 | NUR ---
NOTIFIED OF WBC COUNT 32.7, UP FROM 6.7 ON 10/29/18. NEW ORDERS TO FOLLOW
--- NOTE | 2018-10-31 03:56 | NUR ---
NOTIFIED OF BP 182/78 MANUALLY FOLLOWING 5MG IV HYDRALAZINE. NEW ORDER RECEIVED FOR ANOTHER 5MG IV HYDRALAZINE TO BE GIVEN.
--- NOTE | 2018-10-31 04:52 | NUR ---
PATIENT MEDICATED WITH PO VISTARIL WITH SMALL SIPS OF WATER FOR ANXIETY. CEPACHOL LOZENGE ALSO ADMINISTERED AT THIS TIME FOR COUGHING EPISODE. IV MAG INFUSION INITIATED AT THIS TIME PER ORDER. WILL MONITOR. CALL LIGHT IN REACH.
--- NOTE | 2018-10-31 06:05 | NUR ---
PATIENT CANNOT HAVE VQ SCAN & STRESS TEST IN SAME DAY. NOTIFIED. INSTRUCTED TO D/C VQ SCAN AND PATIENT IS STILL TO HAVE STRESS TEST TODAY.
--- NOTE | 2018-10-31 07:45 | NUR ---
PATIENT GIVEN IV ATIVAN SLOWLY PER PRN ORDER FOR INCREASED ANXIETY. WILL MONITOR EFFECTIVENESS. PT ENCOURAGED TO TAKE SLOW DEEP BREATHS. PT C/O CONSTANT HACKY COUGH. PRN COUGH DROP GIVEN AT THIS TIME. WILL MONITOR EFFECTIVENESS. ON FLOOR AND AWARE OF PATIENT'S CONDITION.
--- NOTE | 2018-10-31 08:18 | NUR ---
PT APPEARS MUCH MORE CALMER AT THIS TIME. RESPIRATIONS LESS LABORED. 02 IN USE. POX 97% VIA 2LNC. VSS. WILL CONTINUE TO MONITOR. BED ALARM MAINTAINED FOR SAFETY.
--- NOTE | 2018-10-31 09:00 | NUR ---
case management visits with patient, patient states he will be going home when able. discussed with him vNA and he declines any services at this time
[2018-10-31 09:47] LABS: ABG BASE EXCESS 1.1 mmol/L (-2.0-2.0); ABG HCO3 24.2 mmol/l (22-26); ABG O2 SATURATION 99.5 % (95-97); ARTERIAL BLOOD GAS PCO2 35.6 mmHg (35-45); ARTERIAL BLOOD GAS PH 7.449 (7.35-7.45)
--- NOTE | 2018-10-31 10:19 | NUR ---
PATIENTS BP RECHECKED AT THIS TIME. BP 154/90. COUGHING FIT GOING ON AT THIS TIME. UPDATED ON MOST RECENT BP. PT REPOSITIONED IN BED. PT SITTING UP IN BED WITH HOB ELEVATED. WILL MONITOR.
--- NOTE | 2018-10-31 10:40 | NUR ---
IN TO SEE PATIENT REGARDING PLAN OF CARE.
--- NOTE | 2018-10-31 10:42 | NUR ---
PHYSICAL THERAPY PAtient with doctor at this time. Brisa Morrison,PT
--- NOTE | 2018-10-31 10:56 | NUR ---
[facility]-RN IN ROOM TO ATTEMPT MID-LINE IV ON PATIENT PER ORDER FOR SCHEDULED CTA.
--- NOTE | 2018-10-31 11:31 | NUR ---
PHYSICAL THERAPY PAtient having bedisde procedure at this time. Brisa Morrison,PT
--- NOTE | 2018-10-31 11:32 | NUR ---
Patient not available for Occupational Therapy evaluation as he is with MD and getting an IV. May Nichole OTR/L
--- NOTE | 2018-10-31 11:52 | NUR ---
CT CALLED AT THIS TIME REGARDING MIDLINE INSERTION AND THAT PATIENT IS READY FOR CTA NOW.
--- NOTE | 2018-10-31 11:57 | NUR ---
UPDATED REGARDING MIDLINE INSERTION. AWAITING CTA.
--- NOTE | 2018-10-31 12:12 | NUR ---
PT TAKEN DOWN FOR CTA VIA W/C.
--- NOTE | 2018-10-31 12:16 | NUR ---
NOTIFIED OF CONSULT.
--- NOTE | 2018-10-31 12:34 | NUR ---
INFORMED CONSENT OBTAINED FOR A LEXISCAN STRESS TEST WITH DR. JACOME. RESTING HT RT OF 115, WITH A BP OF 110/68. BREATH SOUNDS CLEAR DAVIDE, POX OF 98% VIA RA. RECEIVED LEXISCAN 0.4 MG OVER 10 SECONDS. NO C/O VOICED, DENIES CHEST PAIN. HAD A PEAK HT RT OF 116, WITH A BP OF 92/50. LAST RECOVERY HT RT OF 125 WITH A BP OF 112/60. AWAITING NUCLEAR IMAGING IN STABLE CONDITION.
--- NOTE | 2018-10-31 13:23 | NUR ---
Patient not available for Occupational Therapy evaluation as he is out of the room for a stress test. May Nichole OTR/l
--- NOTE | 2018-10-31 13:35 | NUR ---
PHYSICAL THERAPY PAtient at stress test. Brisa Morrison,PT
--- NOTE | 2018-10-31 14:36 | NUR ---
PATIENT RETURNED TO ROOM AT THIS TIME.
--- NOTE | 2018-10-31 14:43 | NUR ---
1 OF 2 BOLUSES INITIATED AT THIS TIME PER ORDER. WILL CONTINUE TO MONITOR.
--- NOTE | 2018-10-31 15:15 | NUR ---
PT GIVEN IV ATIVAN SLOWLY PER PRN ORDER FOR C/O ANXIETY. WILL MONITOR EFFECTIVENESS.
--- NOTE | 2018-10-31 15:58 | NUR ---
2ND BOLUS INITIATED AT THIS TIME PER ORDER.
--- NOTE | 2018-10-31 16:45 | NUR ---
MIDLINE IV REMOVED AT THIS TIME. UNABLE TO FLUSH AND/OR GET BLOOD RETURN. 2 RN'S ATTEMPTED TO SAVE MIDLINE. UNABLE TO KEEP MIDLINE SITE AT THIS TIME. PATIENT STILL HAS AN IV SITE IN LEFT FOREARM. 20G PRESENT. FLUSHES WITHOUT DIFFICULTY. IV ATBS INFUSING. WILL CONTINUE TO MONITOR. VSS. PATIENT IS TO REMAIN NPO.
--- NOTE | 2018-10-31 17:46 | NUR ---
IV BOLUSES X2 COMPLETE AT THIS TIME.
--- NOTE | 2018-10-31 18:24 | NUR ---
DAUGHTER HERE AND UPDATED ON PLAN OF CARE.
--- NOTE | 2018-10-31 22:33 | NUR ---
RADIOLOGY CELL PHONE CALLED FOR CROSS CUT SAWYER. AWAITING CALL BACK REGARDING CTA OF CHEST DONE ON PT THIS AFTERNOON
[2018-11-01] VITALS: BP 128/65
[2018-11-01 06:54] LABS: HEMATOCRIT 39.9 % (42.0-52.0); HEMOGLOBIN 13.4 g/dl (14.0-18.0); MEAN CELL VOLUME 100.8 fl (80.0-94.0); MEAN CORPUSCULAR HGB 33.8 pg (27.0-31.0); MEAN CORPUSCULAR HGB CONC 33.6 g/dl (33.0-37.0); MEAN PLATELET VOLUME 8.7 fl (9.6-12.3); PLATELET COUNT AUTOMATED 335 10*3/uL (130-400); RED BLOOD COUNT 3.96 10*6/uL (4.50-5.90); RED CELL DISTRI WIDTH 11.6 % (0-14.5); WHITE BLOOD COUNT 17.7 10*3/uL (4.8-10.8)
[2018-11-01 07:18] LABS: CHLORIDE 99 mmol/L (98-107); POTASSIUM 4.4 mmol/L (3.5-5.1); SODIUM 132 mmol/L (136-145)
[2018-11-01 07:36] LABS: ALBUMIN 2.6 gm/dl (3.1-4.5); ALKALINE PHOSPHATASE 73 U/L (45-117); BUN 9 mg/dl (7-24); CREATININE 0.59 mg/dL (0.70-1.30); PHOSPHOROUS 3.9 mg/dL (2.5-4.9); SGOT/AST 25 IU/L (3-35); SGPT/ALT 34 U/L (12-78); TOTAL PROTEIN 7.4 gm/dL (6.4-8.2)
[2018-11-01 07:50] LABS: PLATELET SUFFICIENCY NORMAL (NORMAL); TOTAL CELLS COUNTED 100 #CELLS
--- NOTE | 2018-11-01 07:56 | NUR ---
PT HAS S/S OF TREMORS DUE TO ALCOHOL WITHDRAWAL. ATIVAN 1 MG GIVEN VIA IV. WILL MONITOR FOR EFFECTIVENESS. CALL LIGHT IN REACH.
--- NOTE | 2018-11-01 08:56 | NUR ---
ATIVAN EFFECTIVE PER PT.
--- NOTE | 2018-11-01 10:41 | NUR ---
PT GIVEN COUGH DROP PER REQUEST.
[2018-11-01 12:00] VITALS: BP 120/77
--- NOTE | 2018-11-01 13:31 | NUR ---
PT REQUESTS ATIVAN 1 MG FOR TREMORS AND TYLNEOL FOR HEADACHE. MEDICATION GIVEN AT THIS TIME. WILL MONITOR FOR EFFECTIVENESS. CALL LIGHT IN REACH.
--- NOTE | 2018-11-01 14:20 | NUR ---
SPEECH PATHOLOGY Clinical swallowing evaluation completed as per orders. This was ordered due to possible aspiration. Medical history includes ETOH abuse, GERD and thyroid disease. Patient was NPO until completion of assessment. He was alert and cooperative, with generalized weakness and c/o poor appetite. He sat upright at side of bed. Oral peripheral exam revealed presence of natural teeth with some missing. Lingual/labial and buccal skills were WNL in terms of strength, ROM and coordination. Volitional cough was weak. Patient was assessed with puree, various solids and thin liquid. He displayed no overt difficulty with any item, with adequate chewing, no oral residue and no cough or wet vocal quality. He began complaining of nausea and also displayed frequent belching. Recommend patient receive a regular diet and thin liquids. Recommend safe swallow precautions such as upright positioning and small bites and sips. Also recommend education on reflux precautions. Short term follow up is recommended to ensure safety through education and adherence to safe swallow precautions. Results and daniel. were shared with patient, his son and nurse and they verbalized understanding. [facility] for further information. Thank you for this referral. LONNIE MONROY MSCCC-WOODWORKING MACHINE SETTER
--- NOTE | 2018-11-01 14:30 | NUR ---
TYLENOL AND ATIVAN EFFECTIVE PER PT.
--- NOTE | 2018-11-01 14:31 | NUR ---
Occupational Therapy evaluation offered but patient declined this date reporting that he did not feel well. May Nichole OTR/l
--- NOTE | 2018-11-01 15:18 | NUR ---
PHYSICAL THERAPY PAtient refuses PT this date. " I am too sick." Brisa Morrison,PT
[2018-11-01 16:00] VITALS: BP 111/77
[2018-11-01 16:00] LABS: BILIRUBIN NEGATIVE (NEGATIVE); BLOOD NEGATIVE (NEGATIVE); CLARITY CLEAR (CLEAR); COLOR YELLOW (YELLOW); GLUCOSE NEGATIVE (NEGATIVE); KETONE NEGATIVE (NEGATIVE); LEUKO ESTERASE NEGATIVE (NEGATIVE); NITRITE NEGATIVE (NEGATIVE); SPECIFIC GRAVITY 1.025 (1.005-1.030)
[2018-11-01 16:09] LABS: EPITHELIAL CELLS 0-2; HYALINE CAST 0-2; WBC 0-2 wbc/hpf (0-5)
[2018-11-01 16:10] LABS: BACTERIA TRACE
--- NOTE | 2018-11-01 17:34 | NUR ---
PT C/O COUGH. TESSALON PERLES GIVEN. WILL MONITOR FOR EFFECTIVENESS. PT ALSO STATES THAT IV SITE HAS BEEN PULLED OUT. NEW IV STARTED AT THIS TIME. PT TOLERATED WELL. CALL LIGHT IN REACH.
--- NOTE | 2018-11-01 18:11 | NUR ---
PT GIVEN TYLENOL FOR HEADACHE AND ATIVAN 1 MG FOR TREMORS. WILL MONITOR. PT LYING IN BED. IV ANTIBIOTIC INFUSING PER ORDERS. CALL LIGHT IN REACH.
--- NOTE | 2018-11-01 18:34 | NUR ---
MIGUEL PETERSON EFFECTIVE PER PT.
--- NOTE | 2018-11-01 18:54 | NUR ---
PRN MEDICATIONS EFFECTIVE.
[2018-11-01 20:00] VITALS: BP 119/68
[2018-11-02] VITALS: BP 138/78
[2018-11-02 07:24] LABS: BASO % 0.2 % (0.0-1.0); HEMATOCRIT 36.7 % (42.0-52.0); HEMOGLOBIN 12.4 g/dl (14.0-18.0); LYMPH # 1.3 10*3/uL (1.3-4.4); LYMPH % 10.7 % (27.0-41.0); MEAN CORPUSCULAR HGB CONC 33.8 g/dl (33.0-37.0); MONO # 1.4 10*3/uL (0.1-1.0); MONO % 10.9 % (3.0-9.0); NEUT # 9.8 10*3/uL (2.3-7.9); NEUT % 77.8 % (47.0-73.0); PLATELET COUNT AUTOMATED 313 10*3/uL (130-400); RED BLOOD COUNT 3.76 10*6/uL (4.50-5.90); RED CELL DISTRI WIDTH 11.1 % (0-14.5); WHITE BLOOD COUNT 12.5 10*3/uL (4.8-10.8)
[2018-11-02 07:33] LABS: ALBUMIN 2.4 gm/dl (3.1-4.5); ALKALINE PHOSPHATASE 66 U/L (45-117); BUN 9 mg/dl (7-24); CHLORIDE 94 mmol/L (98-107); CREATININE 0.46 mg/dL (0.70-1.30); PHOSPHOROUS 3.6 mg/dL (2.5-4.9); POTASSIUM 3.6 mmol/L (3.5-5.1); SGOT/AST 25 IU/L (3-35); SGPT/ALT 30 U/L (12-78); SODIUM 129 mmol/L (136-145); TOTAL PROTEIN 6.7 gm/dL (6.4-8.2)
[2018-11-02 07:41] LABS: MEAN CELL VOLUME 97.6 fl (80.0-94.0)
[2018-11-02 08:00] VITALS: BP 120/64
--- NOTE | 2018-11-02 11:30 | NUR ---
DR MORRSI IN TO SEE PT. ORDERS PLACE FOR LABS
[2018-11-02 12:00] VITALS: BP 118/94
--- NOTE | 2018-11-02 12:31 | NUR ---
SPEECH PATHOLOGY CARE NURSE RN attempted therap this am, patient was sleeping and did not rouse. Will attempt at later time. Shan Bunn MA CF-CARE NURSE RN
--- NOTE | 2018-11-02 13:46 | NUR ---
SPEECH PATHOLOGY Patient seen for swallowing treatment and education this date. Patient reclined in bed upon clinician arrival. Meal tray was by patient's bed. Patient reported he had eaten a few bites of his burger without difficulty. With encouragement, patient took additional bite of burger and demonstrated no overt difficulty with oral or pharyngeal phase of swallow. Clinician cued patient to take a sip of a liquid. Patient took a sip of pop that was sitting bedside and cleared oral cavity. Patient stated he was full and didn't wish to consume any additional trials. Clinician provided education on safe swallowing strategies which include sitting upright during all PO intake, taking small bites and sips, alternating between solids and liquids, and remaining upright for 30 minutes following all meals. Patient attentive and verbalized understanding. Clinician also provided education regarding GERD precautions and strategies. Clinician recommended limited consumption of carbonated beverages, caffeine, and spicy foods. Patient also recommended to remain upright following PO intake to allow time for food to digest. Patient verbalized understanding. Patient demonstrating tolerance of recommended diet and use of safe swallowing strategies. Patient to be discharged from Speech Therapy services at this time. Speech Therapy available for consult if change in oropharyngeal swallow mechanism occurs. Tammy Arambula MA CF-POULTRY SEXER
--- NOTE | 2018-11-02 14:38 | NUR ---
PHYSICAL THERAPY PAtient continues to refuse PT. Will d/c PT orders. PAtient continues to refuse. Thank you for this referral. Brisa Morrison,PT
--- NOTE | 2018-11-02 14:39 | NUR ---
Patient continues to refuse Occupational Therapy evaluation. Discharge OT referral. Thank you. May Nichole OTR/melanie
[2018-11-02 16:00] VITALS: BP 101/59
[2018-11-02 20:00] VITALS: BP 94/56
--- NOTE | 2018-11-02 20:35 | NUR ---
PATIENT MEDICATED WITH CEPACOL LOZENGE, HALLS COUGH DROP AND TYLENOL AT THIS TIME FOR COUGH AND HEADACHE. WILL CONTINUE TO MONITOR. CALL LIGHT IN REACH.
[2018-11-03] VITALS: BP 128/84
[2018-11-03 07:21] LABS: BASO % 0.1 % (0.0-1.0); HEMATOCRIT 36.9 % (42.0-52.0); HEMOGLOBIN 12.6 g/dl (14.0-18.0); LYMPH # 1.5 10*3/uL (1.3-4.4); LYMPH % 16.1 % (27.0-41.0); MEAN CELL VOLUME 96.6 fl (80.0-94.0); MEAN CORPUSCULAR HGB CONC 34.1 g/dl (33.0-37.0); MEAN PLATELET VOLUME 8.9 fl (9.6-12.3); MONO # 1.1 10*3/uL (0.1-1.0); MONO % 11.8 % (3.0-9.0); NEUT # 6.8 10*3/uL (2.3-7.9); NEUT % 71.4 % (47.0-73.0); PLATELET COUNT AUTOMATED 358 10*3/uL (130-400); RED BLOOD COUNT 3.82 10*6/uL (4.50-5.90); WHITE BLOOD COUNT 9.5 10*3/uL (4.8-10.8)
[2018-11-03 07:44] LABS: ALBUMIN 2.2 gm/dl (3.1-4.5); ALKALINE PHOSPHATASE 66 U/L (45-117); BUN 9 mg/dl (7-24); CHLORIDE 97 mmol/L (98-107); CREATININE 0.52 mg/dL (0.70-1.30); POTASSIUM 3.7 mmol/L (3.5-5.1); SGOT/AST 22 IU/L (3-35); SGPT/ALT 29 U/L (12-78); SODIUM 131 mmol/L (136-145); TOTAL PROTEIN 6.5 gm/dL (6.4-8.2)
[2018-11-03 08:00] VITALS: BP 128/82
--- NOTE | 2018-11-03 08:04 | NUR ---
PT MEDICATED WITH IV ATIVAN PER PRN ORDER FOR C/O ANXIETY. WILL MONITOR EFFECTIVENESS. VSS.
--- NOTE | 2018-11-03 09:00 | NUR ---
EARLIER ATIVAN APPEARS EFFECTIVE AT THIS TIME. PT SLEEPING QUIETLY IN BED. RESPIRATIONS EASY, REGULAR ON RA. WILL CONTINUE TO MONITOR.
[2018-11-03 12:00] VITALS: BP 105/62
--- NOTE | 2018-11-03 14:19 | NUR ---
PT GIVEN PO VISTARIL PER PRN ORDER FOR C/O ANXIETY. WILL MONITOR EFFECTIVENESS. CALL LIGHT WITHIN REACH. VSS
--- NOTE | 2018-11-03 15:12 | NUR ---
CALLED AT THIS TIME. OKAY TO D/C MANAGER PLAY.
[2018-11-03 16:00] VITALS: BP 100/58
--- NOTE | 2018-11-03 19:02 | NUR ---
CALLED REGARDING ATIVAN ORDER. ORDERS TO BE ENTERED PER PHYSICIAN.
--- NOTE | 2018-11-03 19:18 | NUR ---
RESTING IN BED WATCHING TV AT THIS TIME. NO NEEDS OR CONCERNS. BED IS IN LOWEST POSTIION WITH WHEELS LOCKED. CALL LIGHT IS WITHIN REACH. ENCORUAGED TO USE CALL LIGHT FOR NEEDS.
--- NOTE | 2018-11-03 19:37 | NUR ---
PRN CEPACHOL DROP GIVEN FOR COMPLAINTS OF COUGH/SORE THROAT. WILL EVALUATE EFFECTIVENESS.
[2018-11-03 20:00] VITALS: BP 100/60
--- NOTE | 2018-11-03 20:24 | NUR ---
PATIENT STATES CEPACHOL EFFECTIVE. NO FURTHER NEEDS AT THIS TIME.
--- NOTE | 2018-11-03 21:24 | NUR ---
PRN VISTARIL GIVEN FOR COMPLAINTS OF ANXIETY. WILL EVALUATE EFFECTIVENESS.
--- NOTE | 2018-11-03 22:36 | NUR ---
PATIENT STATES VISTARIL EFFECTIVE. NO FURHTER NEEDS AT THIS TIME.
[2018-11-04] VITALS: BP 126/92
--- NOTE | 2018-11-04 01:12 | NUR ---
RESTING IN BED ON RIGHT SIDE WITH EYES CLOSED. RESPIRATIONS ARE EASY AND REGULAR. NO DISTRESS IS NOTED. CALL LIGHT IS WITHIN REACH.
[2018-11-04 08:00] VITALS: BP 142/92
[2018-11-04 08:56] LABS: ALBUMIN 2.1 gm/dl (3.1-4.5); ALKALINE PHOSPHATASE 61 U/L (45-117); BUN 10 mg/dl (7-24); CHLORIDE 100 mmol/L (98-107); CREATININE 0.65 mg/dL (0.70-1.30); POTASSIUM 3.2 mmol/L (3.5-5.1); SGOT/AST 28 IU/L (3-35); SGPT/ALT 37 U/L (12-78); SODIUM 134 mmol/L (136-145); TOTAL PROTEIN 6.3 gm/dL (6.4-8.2)
--- NOTE | 2018-11-04 09:10 | NUR ---
PATIENT RESTING QUIETLY IN BED. NO DISTRESS NOTED. DENIES ANY PAIN/DISCOMFORT AT THIS TIME. BETTER APPETITE PER PT. WILL CONTINUE TO MONITOR. VSS. CALL LIGHT WITHIN REACH.
[2018-11-04 12:00] VITALS: BP 101/54
[2018-11-04 16:00] VITALS: BP 106/59
--- NOTE | 2018-11-04 19:12 | NUR ---
RESTING IN BED ON RIGHT SIDE WITH LIGHTS OUT. CURRENTLY DENIES ANY NEEDS OR CONCERNS. BED IS IN LOWEST POSITION WITH WHEELS LOCKED. CALL LIGHT IS WITHIN REACH. ENCOURAGED TO USE CALL LIGHT FOR NEEDS. WILL CONTINUE TO MONITOR.
--- NOTE | 2018-11-04 19:33 | NUR ---
PRN TYLENOL GIVEN FOR COMPLAINTS OF HEAD AND NECK DISCOMFORT. WILL EVALUATE EFFECTIVENESS.
[2018-11-04 20:00] VITALS: BP 134/88
--- NOTE | 2018-11-04 20:26 | NUR ---
PATIENT STATES TYLENOL EFFECTIVE. NO FURTHER NEEDS.
--- NOTE | 2018-11-04 21:46 | NUR ---
PRN CEPACHOL AND VISTARIL GIVEN FOR COMPLAINTS OF COUGH AND ANXIETY. WILL EVALUATE EFFECTIVENESS.
--- NOTE | 2018-11-04 22:01 | NUR ---
Hep Lock discontinued. Site asymptomatic. Pressure applied. Sterile dressing applied. IV started left forearm with #22 angiocath after 1 sucessful attempt. The IV site was prepped with Chloraprep. Heparin lock attached. Sterile dressing applied. Patient tolerated precedure well. Procedure performed according to [facility] policy & procedure. BERNICE WHITE
--- NOTE | 2018-11-04 22:58 | NUR ---
PRN CEPACHOL AND VISTARIL EFFECTIVE PER PATIENT. WILL CONTINUE TO MONITOR
[2018-11-05] VITALS: BP 137/83
[2018-11-05 08:00] VITALS: BP 122/66
--- NOTE | 2018-11-05 09:10 | NUR ---
PATIENT MEDICATED WITH VISTARIL PER REQUEST. WILL CHECK EFFECTIVENESS.
--- NOTE | 2018-11-05 10:40 | NUR ---
PATIENT C/O A HACKY COUGH. MEDICATED WITH TESSALON PERLES.
[2018-11-05 11:16] VITALS: BP 110/60
--- NOTE | 2018-11-05 12:22 | NUR ---
BRIDGET BIRD, PATIENTS CALLED IN VERY UNHAPPY ABOUT PATIENTS CARE RECEIVED HERE. STATED HIS SPINE AND HIP WERE TO BE EXAMINED AND HAVE NOT. ALSO NO ONE NOTIFIED HIS FAMILY THAT HE WAS ADMITTED FOR TWO DAYS. FAMILY UNHAPPY THAT PATIENT MAY BE DISCHARGED TOMORROW. THIS NURSE STATED SHE WOULD NOTIFY THE DOCTOR. NOTIFIED KENDAL RODNEY PATIENT FAMILY IS UNHAPPY AND DOES NOT WANT PATIENT DISCHARGED WITHOUT SPINE AND HIM EXAMINED.
[2018-11-05 15:51] VITALS: BP 116/72
--- NOTE | 2018-11-05 15:57 | NUR ---
Occupational Therapy evaluation completed on 4 with full eval to follow. Precautions include IV UE, history of falls, impaired memory, patient is low complexity levle 55483 via chart review, testing and evaluation. Recommend no further OT at this time and return home alone with home health SN,PT,OT for home safety assessment. Thank you for this referral. May Nichole OTR/l
--- NOTE | 2018-11-05 16:04 | NUR ---
PHYSICAL THERAPY Patient evaluated on 4, full evaluation to follow. Continue with PT as per plan of care with fall, alarms and alcohol withdraw precautions. Home for d/c planning. PAtient is moderate complexity via chart review, tests and evaluation: 52758. Thank you for this referral. Brisa Morrison,PT
[2018-11-05 20:00] VITALS: BP 117/70
--- NOTE | 2018-11-05 21:24 | NUR ---
PRN VISTARIL GIVEN FOR COMPLAINTS OF RESTLESSNESS AND ANXIETY. WILL EVALUATE EFFECTIVENESS. CALL LIGHT IS WITHIN REACH.
--- NOTE | 2018-11-05 22:49 | NUR ---
PER PATIENT PRN VISTARIL IS EFFECTIVE. NO FURTHER NEEDS AT THIS TIME. ENCOURAGED TO USE CALL LIGHT FOR ANY NEEDS.
[2018-11-06] VITALS: BP 126/68
[2018-11-06 06:01] LABS: BASO % 0.3 % (0.0-1.0); EOS % 0.1 % (1.0-4.0); HEMATOCRIT 35.8 % (42.0-52.0); HEMOGLOBIN 12.1 g/dl (14.0-18.0); LYMPH # 0.6 10*3/uL (1.3-4.4); LYMPH % 6.7 % (27.0-41.0); MEAN CELL VOLUME 98.1 fl (80.0-94.0); MEAN CORPUSCULAR HGB 33.2 pg (27.0-31.0); MEAN CORPUSCULAR HGB CONC 33.8 g/dl (33.0-37.0); MEAN PLATELET VOLUME 8.8 fl (9.6-12.3); MONO % 12.1 % (3.0-9.0); NEUT # 6.8 10*3/uL (2.3-7.9); NEUT % 79.4 % (47.0-73.0); PLATELET COUNT AUTOMATED 434 10*3/uL (130-400); RED BLOOD COUNT 3.65 10*6/uL (4.50-5.90); RED CELL DISTRI WIDTH 11.4 % (0-14.5); WHITE BLOOD COUNT 8.6 10*3/uL (4.8-10.8)
[2018-11-06 06:05] LABS: ALBUMIN 2.2 gm/dl (3.1-4.5); ALKALINE PHOSPHATASE 57 U/L (45-117); BUN 6 mg/dl (7-24); CHLORIDE 100 mmol/L (98-107); CREATININE 0.52 mg/dL (0.70-1.30); PHOSPHOROUS 2.9 mg/dL (2.5-4.9); POTASSIUM 3.4 mmol/L (3.5-5.1); SGOT/AST 35 IU/L (3-35); SGPT/ALT 60 U/L (12-78); SODIUM 134 mmol/L (136-145); TOTAL PROTEIN 6.3 gm/dL (6.4-8.2)
[2018-11-06 07:11] LABS: ADENOVIRUS Negative (Negative); INFLUENZA A Negative (Negative); INFLUENZA B Negative (Negative); METAPNEUMOVIRUS Negative (Negative); PARAINFLUENZA 1 Negative (Negative); PARAINFLUENZA 2 Negative (Negative); PARAINFLUENZA 3 Negative (Negative); RHINOVIRUS Negative (Negative); RSV A Negative (Negative); RSV B Negative (Negative)
[2018-11-06 08:00] VITALS: BP 120/66
--- NOTE | 2018-11-06 08:00 | NUR ---
PT RESTING IN BED, ASSESSMENT COMPLETED. PT HAS NO COMPLAINTS AT THIS TIME WILL CONTINUE TO MONITOR. LUCINDA.STEVEN VANESSA
[2018-11-06] MEDS ORDERED: LOPRESSOR25 MG PO (08:47)
[2018-11-06] MEDS ORDERED: ATORVASTATIN CA40 M1 PO (08:47)
[2018-11-06] MEDS ORDERED: PREDNISONE10 MG PO (08:47)
--- NOTE | 2018-11-06 09:30 | NUR ---
IN BED AWAKE ALERT AND ORIENTED. FORGETFUL TO TIME. ORIENTED TO SE[place]ON, PRESIDENT, PLACE AND SELF. STATES HE DOES NOT WANT HIS EX- TO HAVE ANY INFORMATION BUT HIS DAUGHTER IS ALLOWED. DENIES SOB ON RA, C/O DRY COUGH, RHONCHI T/O, DENIES PAIN, N/V/D/C, LAST BM YEST, NO EDEMA NOTED, DENIES DIFFICULTY URINATING. WILL CONT TO MONITOR. CALL LIGHT IN REACH. NO C/O. ORDERS REVIEWED. WILL CONT TO MONITOR. CALL LIGHT IN REACH.
--- NOTE | 2018-11-06 10:13 | NUR ---
GIVE PRN VISTARIL PER PATIENTS REQUEST. WILL CONTINUE TO MONITOR. LUCINDA.STEVEN VANESSA
--- NOTE | 2018-11-06 10:48 | NUR ---
PHYSICAL THERAPY Patient presented to therapy in supine with head of bed flat and no concerns or complaints. Patient does say that he wants discharged from the hospital because he is tired of it. Patient does complain of some L HIP PAIN. Patient agrees to therapy session. Patient was identified by name and . Patient performed all transfers Independently. Patient ambulated to and from restroom throughout the day. Patient performed ambulation 220' x 1 with no assistive device and CLose Supervision. 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 Patient was left sitting on EOB wit hcall light within reach. Patient is INDEPENDENT IN HIS ROOM. Patient was 1:1 with this RECORDING ARTIST for 12 minutes total. SHIRAZ GOMEZ RECORDING ARTIST
--- NOTE | 2018-11-06 10:59 | NUR ---
IV SITE LEAKING, IV SITE D/C'D, PT REFUSES TO HAVE IV RESTARTED DUE TO DISCHARGE TODAY FAVIAN VANESSA SPRENEACC
--- NOTE | 2018-11-06 11:00 | NUR ---
PT STATES RELIEF OF NERVOUSNESS AFTER TAKING PRN MEDICATION. NO OTHER COMPLAINTS AT THIS TIME. LUCINDA.STEVEN VANESSA
[2018-11-06 11:40] VITALS: BP 102/56
--- NOTE | 2018-11-06 12:46 | NUR ---
PER DR ARTURO GALAN TO DISCHARGE.
--- NOTE | 2018-11-06 13:04 | NUR ---
PHYSICAL THERAPY CO-SIGN I approve of the Phyical Therapy notes written above. CHELA PRESLEY PT \
--- NOTE | 2018-11-06 13:54 | NUR ---
PT DISCHARGED AT THIS TIME. VERBALIZED UNDERSTANDING OF DISCHARGE INSTRUCTIONS.
[2019-04-12] MEDS ORDERED: HYDROCODONE-AC1 EAC1 PO (13:21)
== END 2018-11-06 13:54 | disposition home or self-care (01) | DRG 640 ==
LOC: ED 06:42 → 4E 08:43 → EDHOLD 08:43 → 4E 09:42
PROVIDERS: Emergency Medicine; Family Medicine; Internal Medicine; Internal Medicine Critical Care Medicine; Internal Medicine Nephrology; Registered Nurse; ADMIT Internal Medicine
PROC: 4A02XM4 Measurement of Cardiac Total Activity, External Approach (ICD-10-PCS; principal; 2018-10-31)
PROC: 3E073KZ Introduction of Other Diagnostic Substance into Coronary Artery, Percutaneous Approach (ICD-10-PCS; 2018-10-31)
DX: E87.1 Hypo-osmolality and hyponatremia (principal); A41.9 Sepsis, unspecified organism; J15.9 Unspecified bacterial pneumonia; J10.08 Influenza due to other identified influenza virus with other specified pneumonia; F33.9 Major depressive disorder, recurrent, unspecified; J98.11 Atelectasis; F10.239 Alcohol dependence with withdrawal, unspecified; D64.9 Anemia, unspecified; F41.9 Anxiety disorder, unspecified; I25.10 Atherosclerotic heart disease of native coronary artery without angina pectoris; E87.6 Hypokalemia; K21.9 Gastro-esophageal reflux disease without esophagitis; E87.8 Other disorders of electrolyte and fluid balance, not elsewhere classified; I10 Essential (primary) hypertension; E03.9 Hypothyroidism, unspecified; F17.210 Nicotine dependence, cigarettes, uncomplicated; E83.42 Hypomagnesemia; Z71.6 Tobacco abuse counseling; Z22.322 Carrier or suspected carrier of Methicillin resistant Staphylococcus aureus; Z68.27 Body mass index [BMI] 27.0-27.9, adult; Z82.49 Family history of ischemic heart disease and other diseases of the circulatory system; Z79.899 Other long term (current) drug therapy

== ENCOUNTER 2019-04-13 23:17 | Emergency (ER) | payer OTHER ==
[~2019-04-13] VITALS: Ht 175.2 cm; Wt 81.6 kg
[~2019-04-13 23:17] MED LIST changes: +ATORVASTATIN CA40 M1 PO; +CYMBALTA60 MG PO; +HYDROCODONE-AC1 EAC1 PO; +LOPRESSOR25 MG PO; +NEURONTIN300 MG PO; +PREDNISONE10 MG PO
== END 2019-04-14 02:50 | disposition other institution (70) ==
LOC: ED 23:17
DX: M25.562 Pain in left knee (principal); M54.9 Dorsalgia, unspecified; F17.200 Nicotine dependence, unspecified, uncomplicated; Z79.899 Other long term (current) drug therapy; Z79.82 Long term (current) use of aspirin; X58.XXXA Exposure to other specified factors, initial encounter; Y93.89 Activity, other specified; Y92.89 Other specified places as the place of occurrence of the external cause; Y99.8 Other external cause status

== ENCOUNTER 2019-05-17 16:07 | Emergency (ER) | payer OTHER ==
[~2019-05-17] VITALS: Ht 167.6 cm; Wt 84.4 kg
--- NOTE | ~2019-05-17 | EKG ---
[place], [place] ELECTROCARDIOGRAM REPORT NAME: JOSE MANUEL BIRD UNIT #: [id number] ROOM: DOCTOR: EPIPHLUZ DRAFT REPORT BIRTHDATE: [birth year] [facility] Test Date: 2019-05-17 Test Time: 16:32:18 Pat Name: JOSE MANUEL BIRD Department: Room: [facility] Gender: M Community Outreach Advocate: Arlene Khan : 1960 Requested By: NAHUN NGUYEN Order Number: [id number] Reading MD: Chaim Infante MD Measurements Intervals [place] Rate: 85 P: 54 ME: 166 QRS: -15 QRSD: 97 T: 39 QT: 371 QTc: 442 Interpretive Statements Sinus rhythm Borderline left axis deviation Compared to ECG 04/08/2019 18:35:16 Sinus tachycardia no longer present Electronically Signed On 05-19-2019 7:45:26 PDT by Chaim Infante MD CM:[email or web address]:ELECTROCARDIOGRAM REPORT [id number] NAHUN MERCEDES DRAFT REPORT NAHUN NGUYEN DO
[~2019-05-17 16:07] MED LIST changes: -PROTONIX40 MG PO
[2019-05-17 16:09] VITALS: BP 149/102
[2019-05-17 16:40] LABS: BILIRUBIN NEGATIVE (NEGATIVE); BLOOD NEGATIVE (NEGATIVE); CLARITY CLEAR (CLEAR); COLOR YELLOW (YELLOW); GLUCOSE NEGATIVE (NEGATIVE); KETONE NEGATIVE (NEGATIVE); LEUKO ESTERASE NEGATIVE (NEGATIVE); NITRITE NEGATIVE (NEGATIVE); PH 5.5 (5.0-9.0); SPECIFIC GRAVITY <= 1.005 (1.005-1.030); UROBILINOGEN 0.2 E.U./dl (0.2-1.0)
[2019-05-17 16:48] LABS: WBC 0-2 wbc/hpf (0-5)
[2019-05-17 16:52] LABS: BASO # 0.1 10*3/uL (0.0-0.1); EOS # 0.2 10*3/uL (0.0-0.4); EOS % 1.9 % (1.0-4.0); HEMATOCRIT 37.6 % (42.0-52.0); LYMPH # 2.5 10*3/uL (1.3-4.4); LYMPH % 30.4 % (27.0-41.0); MEAN CELL VOLUME 93.8 fl (80.0-94.0); MEAN CORPUSCULAR HGB 32.4 pg (27.0-31.0); MEAN CORPUSCULAR HGB CONC 34.6 g/dl (33.0-37.0); MEAN PLATELET VOLUME 9.6 fl (9.6-12.3); MONO % 12.3 % (3.0-9.0); NEUT # 4.5 10*3/uL (2.3-7.9); NEUT % 53.9 % (47.0-73.0); PLATELET COUNT AUTOMATED 248 10*3/uL (130-400); RED BLOOD COUNT 4.01 10*6/uL (4.50-5.90); WHITE BLOOD COUNT 8.3 10*3/uL (4.8-10.8)
[2019-05-17 16:54] VITALS: BP 112/80
[2019-05-17 17:03] LABS: ACT PARTIAL THROMBO TIME 25.5 SECONDS (20.0-32.1)
[2019-05-17 17:10] LABS: ALBUMIN 3.4 gm/dl (3.1-4.5); ALKALINE PHOSPHATASE 142 U/L (45-117); BUN 4 mg/dl (7-24); CHLORIDE 100 mmol/L (98-107); CREATININE 0.52 mg/dL (0.70-1.30); IRON 53 ug/dL (65-175); LIPASE 191 U/L (73-393); POTASSIUM 3.5 mmol/L (3.5-5.1); SGOT/AST 20 IU/L (3-35); SGPT/ALT 25 U/L (12-78); SODIUM 130 mmol/L (136-145); TOTAL IRON BINDING CAPACITY 339 ug/dl (250-450); TOTAL PROTEIN 7.5 gm/dL (6.4-8.2)
[2019-05-17 17:14] LABS: TROPONIN I < 0.015 ng/ml (<0.045)
[2019-05-17 17:36] LABS: FERRITIN 111.9 ng/mL (22.0-322.0)
--- NOTE | 2019-05-17 18:26 | NUR ---
PT W/O DISTRESS NOTED POSITIONED FOR COMFORT W/SAFETY PRECAUTIONS INTACT AND CALL LIGHT WITHIN REACH,NO ADDITIONAL COMPLAINTS VOICED.
[2019-05-17] MEDS ORDERED: PROTONIX40 MG PO (19:39)
== END 2019-05-17 19:38 | disposition admitted as inpatient to this hospital (09) ==
LOC: ED 16:07 → EDHOLD 19:03 → ED 19:03 → 4E 19:50 → EDHOLD 19:50 → 4E 19:51
PROVIDERS: Emergency Medicine
DX: R10.13 Epigastric pain (principal); K92.1 Melena; I10 Essential (primary) hypertension; E78.5 Hyperlipidemia, unspecified; I11.0 Hypertensive heart disease with heart failure; I50.32 Chronic diastolic (congestive) heart failure; K21.9 Gastro-esophageal reflux disease without esophagitis; E03.9 Hypothyroidism, unspecified; E78.2 Mixed hyperlipidemia; G62.9 Polyneuropathy, unspecified; F17.200 Nicotine dependence, unspecified, uncomplicated; Z79.899 Other long term (current) drug therapy; Z79.82 Long term (current) use of aspirin

== ENCOUNTER → 2019-05-17 | Outpatient (CLI) | payer OTHER ==
[~2019-05-17] MED LIST changes: +ANECREAM515 GM T; +LIPITOR40 MG PO; +PROTONIX40 MG PO; +VIIBRYD10 M1 PO; +VIIBRYD20 M1 PO
== END | disposition home or self-care (01) ==
LOC: RESCLI 08:18
DX: E55.9 Vitamin D deficiency, unspecified (principal); I10 Essential (primary) hypertension; E03.9 Hypothyroidism, unspecified; K21.9 Gastro-esophageal reflux disease without esophagitis; F41.1 Generalized anxiety disorder; F10.20 Alcohol dependence, uncomplicated; F32.9 Major depressive disorder, single episode, unspecified; G47.00 Insomnia, unspecified; N40.1 Benign prostatic hyperplasia with lower urinary tract symptoms; R35.0 Frequency of micturition; G40.909 Epilepsy, unspecified, not intractable, without status epilepticus; E78.5 Hyperlipidemia, unspecified; G89.29 Other chronic pain; M54.5 Low back pain; K92.1 Melena; F17.200 Nicotine dependence, unspecified, uncomplicated; Z79.899 Other long term (current) drug therapy; Z88.8 Allergy status to other drugs, medicaments and biological substances

== ENCOUNTER → 2019-05-22 | Outpatient (CLI) | payer OTHER ==
[~2019-05-22] MED LIST changes: +PROTONIX40 MG PO
== END | disposition home or self-care (01) ==
LOC: ORTHO 03:11
DX: S62.647D Nondisplaced fracture of proximal phalanx of left little finger, subsequent encounter for fracture with routine healing (principal); X58.XXXA Exposure to other specified factors, initial encounter; Y93.89 Activity, other specified; Y92.89 Other specified places as the place of occurrence of the external cause; Y99.8 Other external cause status

== ENCOUNTER 2019-06-04 06:18 | Inpatient (IN) | payer OTHER ==
[~2019-06-04] VITALS: Ht 168 cm; Wt 79.4 kg
[2019-06-04 06:26] VITALS: BP 142/95
--- NOTE | 2019-06-04 06:29 | NUR ---
PATIENT ADMITS TO DRINKING 12-18 ALCOHOLIC BEVERAGES THIS MORNING.
[2019-06-04 06:50] LABS: BASO # 0.1 10*3/uL (0.0-0.1); EOS % 0.2 % (1.0-4.0); HEMATOCRIT 41.3 % (42.0-52.0); HEMOGLOBIN 14.6 g/dl (14.0-18.0); LYMPH % 32.8 % (27.0-41.0); MEAN CELL VOLUME 92.4 fl (80.0-94.0); MEAN CORPUSCULAR HGB 32.7 pg (27.0-31.0); MEAN CORPUSCULAR HGB CONC 35.4 g/dl (33.0-37.0); MEAN PLATELET VOLUME 8.9 fl (9.6-12.3); MONO % 16.3 % (3.0-9.0); NEUT % 49.5 % (47.0-73.0); PLATELET COUNT AUTOMATED 309 10*3/uL (130-400); RED BLOOD COUNT 4.47 10*6/uL (4.50-5.90); RED CELL DISTRI WIDTH 13.8 % (0-14.5)
[2019-06-04 07:05] LABS: ACT PARTIAL THROMBO TIME 26.6 SECONDS (20.0-32.1)
[2019-06-04 07:07] LABS: ALBUMIN 3.6 gm/dl (3.1-4.5); ALKALINE PHOSPHATASE 140 U/L (45-117); BUN 9 mg/dl (7-24); CHLORIDE 93 mmol/L (98-107); CREATININE 0.66 mg/dL (0.70-1.30); POTASSIUM 3.5 mmol/L (3.5-5.1); SGOT/AST 28 IU/L (3-35); SGPT/ALT 25 U/L (12-78); SODIUM 127 mmol/L (136-145); TOTAL PROTEIN 7.9 gm/dL (6.4-8.2)
--- NOTE | 2019-06-04 07:07 | NUR ---
Patient laying on right side in bed. No needs voiced. Will continue to monitor.
[2019-06-04 07:10] LABS: TROPONIN I < 0.015 ng/ml (<0.045)
[2019-06-04 07:30] VITALS: BP 125/81
[2019-06-04 08:00] VITALS: BP 132/76
[2019-06-04 08:25] VITALS: BP 136/91
--- NOTE | 2019-06-04 08:38 | NUR ---
DAUGHTER CALLED AT PATIENT'S REQUEST TO INFORM HER OF HIS ADMISSION. PHONE NUMBER [phone]. HER NAME IS VITO.
--- NOTE | 2019-06-04 08:44 | NUR ---
Attempted to call report, no nurse available at this time. Will continue to monitor.
[2019-06-04] MEDS ORDERED: TAMSULOSIN HCL0.4 MG PO (09:00)
--- NOTE | 2019-06-04 09:07 | NUR ---
Time: 906 A 59 year old admitted to under services of MIMI BROWN DO. Pt. arrived via stretcher from ER. Chief complaint: HAD CHEST PAIN, RESLOVED, STATES MAY HAVE BEEN ANXIETY , IT WAS SHARP. . CAMPBELL MABRY
--- NOTE | 2019-06-04 12:33 | NUR ---
Medicated for nausea and stomach upset.
--- NOTE | 2019-06-04 15:25 | NUR ---
UNEMPLOYMENT INSURANCE HEARING OFFICER received notice that the patient was requesting DPOA-HC papers. UNEMPLOYMENT INSURANCE HEARING OFFICER provided the patient with the documents and could have them filled out at this facility. Patient stated that he may be getting discharged today. UNEMPLOYMENT INSURANCE HEARING OFFICER explained he could take the documents home and have a notary complete them. Patient understood. OREN Aguilar
[2019-06-04 16:00] VITALS: BP 156/85
[2019-06-04 17:58] LABS: BUN 9 mg/dl (7-24); CHLORIDE 102 mmol/L (98-107); CREATININE 0.62 mg/dL (0.70-1.30); POTASSIUM 3.7 mmol/L (3.5-5.1); SODIUM 133 mmol/L (136-145)
--- NOTE | 2019-06-04 18:04 | NUR ---
Medicated for nausea, states feels shakey, questioned as to DT's pt. states feels like its starting. Dr. Flores notified , called back discharge pending.
[2019-06-04] MEDS ORDERED: ZESTRIL20 MG PO (18:06)
--- NOTE | 2019-06-04 18:30 | NUR ---
Discharge instruction given, voiced understanding. Discharged to home.
== END 2019-06-04 18:30 | disposition home or self-care (01) | DRG 392 ==
LOC: ED 06:18 → 4E 08:15 → EDHOLD 08:15 → 4E 08:31
PROVIDERS: Emergency Medicine; ADMIT Internal Medicine
DX: K21.9 Gastro-esophageal reflux disease without esophagitis (principal); I50.32 Chronic diastolic (congestive) heart failure; E87.1 Hypo-osmolality and hyponatremia; F41.9 Anxiety disorder, unspecified; F32.9 Major depressive disorder, single episode, unspecified; I11.0 Hypertensive heart disease with heart failure; E66.3 Overweight; E55.9 Vitamin D deficiency, unspecified; G40.909 Epilepsy, unspecified, not intractable, without status epilepticus; F10.120 Alcohol abuse with intoxication, uncomplicated; E03.9 Hypothyroidism, unspecified; E78.2 Mixed hyperlipidemia; G62.9 Polyneuropathy, unspecified; F17.210 Nicotine dependence, cigarettes, uncomplicated; Z91.5 Personal history of self-harm; Z87.81 Personal history of (healed) traumatic fracture; Z71.6 Tobacco abuse counseling; Z68.27 Body mass index [BMI] 27.0-27.9, adult; Z22.322 Carrier or suspected carrier of Methicillin resistant Staphylococcus aureus; Z79.899 Other long term (current) drug therapy; Z82.49 Family history of ischemic heart disease and other diseases of the circulatory system

== ENCOUNTER 2019-09-24 19:57 | Emergency (ER) | payer SELFPAY ==
[~2019-09-24] VITALS: Ht 167.6 cm; Wt 83.9 kg
[~2019-09-24 19:57] MED LIST changes: +TAMSULOSIN HCL0.4 MG PO; +ZESTRIL20 MG PO
[2019-09-24 21:03] LABS: BASO % 0.6 % (0.0-1.0); EOS # 0.1 10*3/uL (0.0-0.4); EOS % 1.5 % (1.0-4.0); HEMATOCRIT 41.9 % (42.0-52.0); HEMOGLOBIN 14.2 g/dl (14.0-18.0); LYMPH % 30.6 % (27.0-41.0); MEAN CELL VOLUME 96.3 fl (80.0-94.0); MEAN CORPUSCULAR HGB 32.6 pg (27.0-31.0); MEAN CORPUSCULAR HGB CONC 33.9 g/dl (33.0-37.0); MEAN PLATELET VOLUME 9.8 fl (9.6-12.3); MONO # 0.9 10*3/uL (0.1-1.0); MONO % 13.8 % (3.0-9.0); NEUT # 3.5 10*3/uL (2.3-7.9); NEUT % 53.2 % (47.0-73.0); PLATELET COUNT AUTOMATED 188 10*3/uL (130-400); RED BLOOD COUNT 4.35 10*6/uL (4.50-5.90); RED CELL DISTRI WIDTH 14.2 % (0-14.5); WHITE BLOOD COUNT 6.5 10*3/uL (4.8-10.8)
[2019-09-24 21:20] LABS: ALBUMIN 3.5 gm/dl (3.1-4.5); ALKALINE PHOSPHATASE 87 U/L (45-117); BUN 3 mg/dl (7-24); CHLORIDE 100 mmol/L (98-107); CREATININE 0.51 mg/dL (0.70-1.30); POTASSIUM 3.8 mmol/L (3.5-5.1); SGOT/AST 75 IU/L (3-35); SGPT/ALT 74 U/L (12-78); SODIUM 131 mmol/L (136-145); TOTAL PROTEIN 7.8 gm/dL (6.4-8.2)
[2019-09-24 21:27] LABS: TROPONIN I < 0.015 ng/ml (<0.045)
[2019-09-24] MEDS ORDERED: PREDNISONE10 M1 PO (22:06)
[2019-09-24] MEDS ORDERED: PROVENTIL HFA6.7 GM INH (22:06)
== END 2019-09-24 22:05 | disposition home or self-care (01) ==
LOC: ED 19:57
PROVIDERS: Emergency Medicine
DX: J45.909 Unspecified asthma, uncomplicated (principal); J06.9 Acute upper respiratory infection, unspecified; I11.0 Hypertensive heart disease with heart failure; I50.32 Chronic diastolic (congestive) heart failure; E03.9 Hypothyroidism, unspecified; K21.9 Gastro-esophageal reflux disease without esophagitis; F41.9 Anxiety disorder, unspecified; F32.9 Major depressive disorder, single episode, unspecified; E78.2 Mixed hyperlipidemia; G40.909 Epilepsy, unspecified, not intractable, without status epilepticus; G62.9 Polyneuropathy, unspecified; F17.210 Nicotine dependence, cigarettes, uncomplicated; Z79.82 Long term (current) use of aspirin; Z79.899 Other long term (current) drug therapy

== ENCOUNTER → 2020-06-26 | Outpatient (CLI) | payer OTHER ==
[~2020-06-26] MED LIST changes: +ALDACTONE25 MG PO; +AMIODARONE HYD200 MG PO; +ELIQUIS5 M1 PO; +LOSARTAN POTASS25 M1 PO; +METOPROLOL SUC100 M1 PO; +PACERONE200 MG PO; +PREDNISONE10 M1 PO; +PROVENTIL HFA6.7 GM INH
[2020-06-26 11:32] LABS: MEAN CELL VOLUME 99.3 fl (80.0-94.0); MEAN CORPUSCULAR HGB 33.7 pg (27.0-31.0); MEAN PLATELET VOLUME 9.2 fl (9.6-12.3); RED BLOOD COUNT 4.33 10*6/uL (4.50-5.90); RED CELL DISTRI WIDTH 11.1 % (0-14.5); WHITE BLOOD COUNT 9.7 10*3/uL (4.8-10.8)
[2020-06-26 11:49] LABS: ALBUMIN 3.5 gm/dl (3.1-4.5); ALKALINE PHOSPHATASE 75 U/L (45-117); BUN 11 mg/dl (7-24); CHLORIDE 101 mmol/L (98-107); CREATININE 0.57 mg/dL (0.70-1.30); POTASSIUM 4.6 mmol/L (3.5-5.1); SGOT/AST 27 IU/L (3-35); SGPT/ALT 30 U/L (12-78); SODIUM 132 mmol/L (136-145)
[2020-06-26 12:40] LABS: VITAMIN D, 25-HYDROXY 54.7 ng/mL (30-100)
[2020-06-28 15:10] LABS: HEP B CORE AB, IGM Negative (Negative); HEPATITIS B SURFACE AG Negative (Negative); HEPATITIS C VIRUS ANTIBODY <0.1 (0.0-0.9)
== END | disposition home or self-care (01) ==
LOC: US 04:57 → LAB 04:57 → US 10:30
PROVIDERS: ATTEND Family Medicine
DX: Z12.5 Encounter for screening for malignant neoplasm of prostate (principal); F03.90 Unspecified dementia, unspecified severity, without behavioral disturbance, psychotic disturbance, mood disturbance, and anxiety; R73.03 Prediabetes; R79.82 Elevated C-reactive protein (CRP)

== ENCOUNTER 2020-06-29 11:04 | Emergency (ER) | payer OTHER ==
[~2020-06-29] VITALS: Ht 167.6 cm; Wt 90.7 kg
== END 2020-06-29 12:53 | disposition home or self-care (01) ==
LOC: ED 11:04
DX: R51.9 Headache, unspecified (principal); F17.200 Nicotine dependence, unspecified, uncomplicated

== ENCOUNTER → 2020-12-25 | Outpatient (CLI) | payer OTHER ==
[2020-12-25 11:40] LABS: HEMATOCRIT 43.8 % (42.0-52.0); MEAN CORPUSCULAR HGB 35.2 pg (27.0-31.0); MEAN CORPUSCULAR HGB CONC 33.8 g/dl (33.0-37.0); MEAN PLATELET VOLUME 9.4 fl (9.6-12.3); RED BLOOD COUNT 4.21 10*6/uL (4.50-5.90); RED CELL DISTRI WIDTH 13.1 % (0-14.5)
[2020-12-25 12:08] LABS: ALBUMIN 3.6 gm/dl (3.1-4.5); ALKALINE PHOSPHATASE 98 U/L (45-117); BUN 4 mg/dl (7-24); CHLORIDE 103 mmol/L (98-107); CHOLESTEROL 142 mg/dL (<200); CPK 54 U/L (39-308); CREATININE 0.67 mg/dL (0.70-1.30); FREE T4 0.92 ng/dl (0.76-1.46); HDL CHOLESTEROL 48 mg/dl (40-60); LDL CHOLESTEROL 68 mg/dL (9-159); POTASSIUM 4.5 mmol/L (3.5-5.1); SGOT/AST 104 IU/L (3-35); SGPT/ALT 77 U/L (12-78); SODIUM 134 mmol/L (136-145); TOTAL PROTEIN 8.2 gm/dL (6.4-8.2); TRIGLYCERIDES 130 mg/dl (<150); VLDL CHOLESTEROL 26 mg/dL (6-40)
[2020-12-25 12:27] LABS: VITAMIN D, 25-HYDROXY 52.9 ng/mL (30-100)
[2020-12-27 09:06] LABS: PROSTATE SPECIFIC AG FREE 0.07 ng/mL; PROSTATE SPECIFIC AG, SERUM 0.3 ng/mL (0.0-4.0)
== END | disposition home or self-care (01) ==
LOC: LAB 11:11
PROVIDERS: ATTEND Family Medicine
DX: E55.9 Vitamin D deficiency, unspecified (principal); E78.00 Pure hypercholesterolemia, unspecified; E03.9 Hypothyroidism, unspecified; F03.90 Unspecified dementia, unspecified severity, without behavioral disturbance, psychotic disturbance, mood disturbance, and anxiety

== ENCOUNTER → 2021-05-12 | Outpatient (CLI) | payer OTHER ==
[2021-05-12 14:06] LABS: HEMATOCRIT 42.1 % (42.0-52.0); MEAN CELL VOLUME 102.4 fl (80.0-94.0); MEAN CORPUSCULAR HGB 35.3 pg (27.0-31.0); MEAN CORPUSCULAR HGB CONC 34.4 g/dl (33.0-37.0); MEAN PLATELET VOLUME 10.3 fl (9.6-12.3); RED BLOOD COUNT 4.11 10*6/uL (4.50-5.90); RED CELL DISTRI WIDTH 12.2 % (0-14.5)
[2021-05-12 14:38] LABS: ALBUMIN 3.2 gm/dl (3.1-4.5); ALKALINE PHOSPHATASE 100 U/L (45-117); BUN 4 mg/dl (7-24); CHLORIDE 99 mmol/L (98-107); CHOLESTEROL 128 mg/dL (<200); CREATININE 0.53 mg/dL (0.70-1.30); LDL CHOLESTEROL 62 mg/dL (9-159); POTASSIUM 4.1 mmol/L (3.5-5.1); SGOT/AST 65 IU/L (3-35); SGPT/ALT 56 U/L (12-78); SODIUM 130 mmol/L (136-145); TOTAL PROTEIN 7.6 gm/dL (6.4-8.2); TRIGLYCERIDES 191 mg/dl (<150)
[2021-05-12 14:43] LABS: THYROID STIM HORMONE (HS) 0.948 uIU/ml (0.358-4.75); VITAMIN D, 25-HYDROXY 78.7 ng/mL (30-100)
[2021-05-13 09:08] LABS: HEP B CORE AB, IGM Negative (Negative); HEPATITIS B SURFACE AG Negative (Negative); HEPATITIS C VIRUS ANTIBODY 0.1 s/co (0.0-0.9)
== END | disposition home or self-care (01) ==
LOC: LAB 13:26
PROVIDERS: ATTEND Family Medicine
DX: J44.9 Chronic obstructive pulmonary disease, unspecified (principal); M47.816 Spondylosis without myelopathy or radiculopathy, lumbar region; Z12.5 Encounter for screening for malignant neoplasm of prostate; E55.9 Vitamin D deficiency, unspecified; I10 Essential (primary) hypertension; R53.83 Other fatigue; F03.90 Unspecified dementia, unspecified severity, without behavioral disturbance, psychotic disturbance, mood disturbance, and anxiety; M51.36 Other intervertebral disc degeneration, lumbar region; M89.38 Hypertrophy of bone, other site; M48.061 Spinal stenosis, lumbar region without neurogenic claudication; Z72.89 Other problems related to lifestyle

== ENCOUNTER 2022-01-13 16:47 | Inpatient (IN) | payer OTHER ==
[~2022-01-13] VITALS: Ht 167.6 cm; Wt 91.2 kg
[2022-01-13 08:10] VITALS: BP 110/65; BP 119/65
[~2022-01-13 16:47] MED LIST changes: +LEVOTHYROXINE50 MCG PO; +LISINOPRIL20 MG PO; +Lopressor25 MG PO; +PANTOPRAZOLE SO40 MG PO
[2022-01-13 16:50] VITALS: BP 128/62
[2022-01-13 17:30] LABS: HEMATOCRIT 38.4 % (42.0-52.0); MEAN CELL VOLUME 93.4 fl (80.0-94.0); MEAN CORPUSCULAR HGB 32.8 pg (27.0-31.0); MEAN CORPUSCULAR HGB CONC 35.2 g/dl (33.0-37.0); MEAN PLATELET VOLUME 8.3 fl (9.6-12.3); PLATELET COUNT AUTOMATED 287 10*3/uL (130-400); RED BLOOD COUNT 4.11 10*6/uL (4.50-5.90); RED CELL DISTRI WIDTH 13.1 % (0-14.5); WHITE BLOOD COUNT 5.7 10*3/uL (4.8-10.8)
[2022-01-13 17:36] LABS: MANUAL DIFF REFLEX YES
[2022-01-13 17:41] LABS: ALKALINE PHOSPHATASE 90 U/L (45-117); BUN 6 mg/dl (7-24); CHLORIDE 93 mmol/L (98-107); CREATININE 0.58 mg/dL (0.70-1.30); POTASSIUM 4.2 mmol/L (3.5-5.1); SGOT/AST 44 IU/L (3-35); SGPT/ALT 47 U/L (12-78); SODIUM 124 mmol/L (136-145); TOTAL PROTEIN 8.2 gm/dL (6.4-8.2)
[2022-01-13 17:47] LABS: ACT PARTIAL THROMBO TIME 29.8 SECONDS (20.0-32.1)
[2022-01-13 17:55] LABS: TOTAL CELLS COUNTED 100 #CELLS
[2022-01-13 17:56] LABS: PLATELET SUFFICIENCY NORMAL (NORMAL)
[2022-01-13 20:10] VITALS: BP 110/65; BP 119/65
[2022-01-13 23:15] LABS: BILIRUBIN Negative (Negative); BLOOD Negative (Negative); CLARITY Cloudy (Clear); COLOR Yellow (Yellow); GLUCOSE Negative (Negative); KETONE Negative (Negative); LEUKO ESTERASE Negative (Negative); NITRITE Negative (Negative); PH 6.5 (4.5-8.0); SPECIFIC GRAVITY <= 1.005 (1.001-1.030); UROBILINOGEN 0.2 E.U./dl (0.0-1.0)
[2022-01-13 23:25] LABS: URINE AMPHETAMINES < 1000 (1000ng/ml); URINE BARBITURATES < 200 (200ng/ml); URINE BENZODIAZEPINES < 200 (200ng/ml); URINE CANNABINOIDS (THC) < 50 (50ng/ml); URINE COCAINE < 300 (300ng/ml); URINE METHADONE < 300 (300ng/ml); URINE OPIATES < 300 (300ng/ml)
[2022-01-13 23:26] LABS: URINE PHENCYCLIDINE < 25 (25ng/ml)
[2022-01-14] VITALS: BP 111/72
[2022-01-14 00:09] LABS: WBC 0-2 wbc/hpf (0-5)
[2022-01-14 04:00] VITALS: BP 140/81
[2022-01-14 05:06] LABS: BUN 7 mg/dl (7-24); CHLORIDE 98 mmol/L (98-107); CREATININE 0.59 mg/dL (0.70-1.30); POTASSIUM 4.4 mmol/L (3.5-5.1); SODIUM 127 mmol/L (136-145)
[2022-01-14 06:22] LABS: HEMATOCRIT 37.4 % (42.0-52.0); MEAN CORPUSCULAR HGB 32.6 pg (27.0-31.0); PLATELET COUNT AUTOMATED 301 10*3/uL (130-400); RED BLOOD COUNT 4.02 10*6/uL (4.50-5.90); RED CELL DISTRI WIDTH 13.1 % (0-14.5); WHITE BLOOD COUNT 5.2 10*3/uL (4.8-10.8)
[2022-01-14 06:45] LABS: MANUAL DIFF REFLEX YES
[2022-01-14 07:05] LABS: BASOPHILS 1 % (0-1); PLATELET SUFFICIENCY NORMAL (NORMAL); POLYCHROMASIA SLIGHT; TOTAL CELLS COUNTED 100 #CELLS; VACUOLATION OF NEUTROPHILS SLIGHT
[2022-01-14 08:00] VITALS: BP 158/94
[2022-01-14 12:00] VITALS: BP 158/92
[2022-01-14 16:00] VITALS: BP 170/92
[2022-01-14 20:00] VITALS: BP 158/95
[2022-01-15] VITALS: BP 159/80
[2022-01-15 04:00] VITALS: BP 159/80
[2022-01-15 08:00] VITALS: BP 156/97
[2022-01-15 12:00] VITALS: BP 119/76
== END 2022-01-15 16:07 | disposition home or self-care (01) | DRG 775 ==
LOC: ED 16:47 → EDHOLD 18:19 → ICCU 18:19
PROVIDERS: Emergency Medicine; ADMIT Internal Medicine; ATTEND Internal Medicine
DX: F10.129 Alcohol abuse with intoxication, unspecified (principal); S42.222A 2-part displaced fracture of surgical neck of left humerus, initial encounter for closed fracture; Y90.9 Presence of alcohol in blood, level not specified; M85.80 Other specified disorders of bone density and structure, unspecified site; E87.1 Hypo-osmolality and hyponatremia; I48.0 Paroxysmal atrial fibrillation; E03.9 Hypothyroidism, unspecified; M70.21 Olecranon bursitis, right elbow; I10 Essential (primary) hypertension; K21.00 Gastro-esophageal reflux disease with esophagitis, without bleeding; I42.9 Cardiomyopathy, unspecified; D64.9 Anemia, unspecified; F17.210 Nicotine dependence, cigarettes, uncomplicated; W01.0XXA Fall on same level from slipping, tripping and stumbling without subsequent striking against object, initial encounter; Y93.89 Activity, other specified; Z82.49 Family history of ischemic heart disease and other diseases of the circulatory system; Y92.89 Other specified places as the place of occurrence of the external cause; Y99.8 Other external cause status; Z71.6 Tobacco abuse counseling